=== PATIENT | female | born 1950 | race Caucasian/White ===

== ENCOUNTER 2018-04-11 08:08 | Inpatient (IN) | payer BC ==
[~2018-04-11] VITALS: Ht 167.6 cm; Wt 131.5 kg
--- NOTE | 2018-04-11 08:15 | NUR ---
DR. BLACKMAN MADE AWARE OF PTS STATUS. BREATHING TREATMENT ORDERED.
[2018-04-11 08:25] VITALS: BP 142/66
[2018-04-11] MEDS ORDERED: ALBUTEROL SULFATE/IPRATROPIU 3 ML SOL IH ONE (08:25)
[2018-04-11] MEDS ORDERED: ALBUTEROL 0.083% 2.5 MG/3 ML NEBU INH ONE (08:25)
--- NOTE | 2018-04-11 08:25 | NUR ---
67 Y/O F PRESENTS TO THE ED W/C/O SOB X 6 MONTHS. PT STATES SHE WENT TO HER PCP A COUPLE OF DAYS AGO AND THEY TOLD HER SHE HAD LOW H&H AND TO COME TO ER. PT BREATHING LABORED, AUDIBLE WHEEZES HEARD BILATERALLY ON INSPIRATION. PT 97% ON RA. PT SPEAKING IN FULL SENTENCES. GCS 15. PT DENIES N/V/D; SKIN IS INTACT, PINK/WARM/DRY; AAOX4, PERRL, WITH EVEN AND STEADY GAIT; HR EVEN AND REGULAR, BL PERIPHERAL PULSES PRESENT; BS ACTIVE X4, NO TENDERNESS TO PALPATION, NO HEPATOSPLENOMEGALLY PALPATED, RESONANT TO PERCUSSION; PT DENIES ANY FEVER, CP, OR COUGH AT THIS TIME; PT STATES 0/10 PAIN AT THIS TIME; VSS; PATIENT POSITIONED FOR COMFORT; HOB ELEVATED; BEDRAILS UP X2; BED DOWN. PMH: HTN, ASTHMA, THYROID CA, ANXIETY RX: LEVOTHYROXINE, WELLBUTRIN ARE THE ONLY MEDS THE PT REMEMBERS AT THIS TIME.
--- NOTE | 2018-04-11 08:30 | NUR ---
CALLED RT TO INFORM OF BREATHING TREATMENT ORDER.
[2018-04-11 08:52] LABS: ANION GAP 19.9 (8-16); CARBON DIOXIDE 21.6 mmol/L (21-32); CREATININE 1.9 mg/dL (0.6-1.3); POTASSIUM 4.5 mmol/L (3.5-5.1)
[2018-04-11 08:57] LABS: BASOPHILS # (AUTO) 0.1 K/uL (0.00-0.22); BASOPHILS % (AUTO) 1.1 % (0.0-2.0); EOSINOPHILS # (AUTO) 0.3 K/uL (0-0.4); EOSINOPHILS % (AUTO) 3.2 % (0.0-4.0); LYMPHOCYTES # (AUTO) 0.8 K/uL (2.5-16.5); LYMPHOCYTES % (AUTO) 9.5 % (20.5-51.1); MEAN CORPUSCULAR HEMOGLOBIN 16 pg (27-31); MEAN CORPUSCULAR HGB CONC 28 g/dL (33-37); MEAN CORPUSCULAR VOLUME 57.4 fL (80-94); MONOCYTES # (AUTO) 0.9 K/uL (0.8-1.0); MONOCYTES % (AUTO) 11.3 % (1.7-9.3); NEUTROPHILS # (AUTO) 5.9 K/uL (1.8-7.7); NEUTROPHILS % (AUTO) 74.9 % (42.2-75.2); PLATELET COUNT (AUTO) 371 K/uL (140-450); RED BLOOD CELL COUNT(AUTO) 3.31 MIL/uL (4.20-5.40); RED CELL DISTRIBUTION WIDTH 21.6 % (11.6-13.7); WHITE BLOOD COUNT (AUTO) 7.9 K/uL (4.8-10.8)
[2018-04-11 09:01] LABS: HEMOGLOBIN 5.3 g/dL (12.0-16.0)
--- NOTE | 2018-04-11 09:41 | NUR ---
DR. BLACKMAN MADE AWARE OF B/P 109/37. NO NEW ORDERS GIVEN
--- NOTE | 2018-04-11 09:41 | NUR ---
Diane khalil in ED - 04/11/[address] BLACKMAN MADE AWARE OF B/P 109/37.
--- NOTE | 2018-04-11 10:16 | NUR ---
DR. BLACKMAN AT BEDSIDE.
[2018-04-11] MEDS ORDERED: LORazepam 2 MG/ML VIAL IVP ONE (10:20)
--- NOTE | 2018-04-11 11:00 | NUR ---
UNIT OF PACKED RBCS STARTED AT THIS TIME. VSS.
[2018-04-11] MEDS ORDERED: ONDANSETRON 4 MG/2 ML VIAL IVP PRN (11:05)
[2018-04-11] MEDS ORDERED: HYDROcodone/APAP 5/325 MG 1 TAB TAB PO PRN (11:05)
[2018-04-11] MEDS ORDERED: LORazepam 2 MG/ML VIAL IVP PRN (11:05)
[2018-04-11] MEDS ORDERED: ALBUTEROL 0.083% 2.5 MG/3 ML NEBU INH PRN (11:05)
[2018-04-11] MEDS ORDERED: ACETAMINOPHEN 325 MG TAB PO PRN (11:05)
--- NOTE | 2018-04-11 11:15 | NUR ---
VSS. NO S/S OF DISTRESS NOTED. VITALS CHARTED ON BLOOD TRANSFUSION PAPER.
--- NOTE | 2018-04-11 11:30 | NUR ---
VSS. NO S/S OF DISTRESS NOTED. VITALS CHARTED ON BLOOD TRANSFUSION PAPER.
--- NOTE | 2018-04-11 11:43 | NUR ---
Patient will be admitted to care of DR. ANDRADE. Admited to TELE. Will go to room 105B. Belongings list completed. Report to EVER HODGE.
[2018-04-11 11:45] VITALS: BP 130/67
--- NOTE | 2018-04-11 12:00 | NUR ---
Admitted from ED , with chief complaint of SOB AND LOW HEMOGLOBIN AND HEMATOCRIT COUNT TAKEN FROM PT'S PCP 2 DAYS AGO. PT STATED SHE RECEIVED A CALL YESTERDAY AFTER REGARDING THE RESULTS AND THAT HER PCP WHICH SHE FORGOT THE NAME BUT HE IS UNDER DR. LONG'S GROUP TOLD HER TO GO TO THE HOSPITAL FOR BLOOD TRANSFUSION. PT IS AAOX4. NO SOB NOTED, ON ROOM AIR WITH SATS OF 97%. NO C/O PAIN AT THIS TIME. IV TO LT AC PATENT AND INTACT WITH ON GOING 1ST UNIT OF PRBC ORDERED FROM ED. PT IS A 67 y/o ,Female, Cooperative,oriented to call light, bed, phone,television, bathroom, smoking policy,visiting hours, procedures, ID bracelet on. Belongings list checked. INSTRUCTED PT TO CALL FOR ASSISTANCE, CALL LIGHT WITHIN REACH, PT VERBALIZED UNDERSTANDING.
--- NOTE | 2018-04-11 13:55 | NUR ---
1ST UNIT PRBC COMPLETED WITH NO BLOOD TRANSFUSION REACTIONS NOTED. DR. ANDRADE IS IN THE STATION HAVING ROUNDS AND CLARIFIED THE TRANSFUSION ORDER, DR. ANDRADE STATED THAT HE ALREADY ORDERED 2 UNITS. 2ND UNIT OF PRBC STARTED. WILL CONTINUE TO MONITOR FOR BLOOD TRANSFUSION REACTIONS.
--- NOTE | 2018-04-11 14:14 | NUR ---
CALLED TO BEDSIDE BY RN. PATIENT BECAME SOB AFTER WALKING TO BATHROOM. FAINT WHEEZING NOTED. PRN TREATMENT ADMINISTERED. PATIENT TOLERATED TX WELL, NO ADVERSE SIDE EFFECTS. PATIENT STATES TO BE FEELING BETTER. NO ACUTE RESPIRATORY DISTRESS NOTED. WILL CONTINUE TO MONITOR.
--- NOTE | 2018-04-11 14:14 | NUR ---
PT WENT TO THE BATHROOM AND CAME BACK WHEEZING AND STATED SHE NEEDS A BREATHING TREATMENT. RT PAGED.
--- NOTE | 2018-04-11 14:35 | NUR ---
PT SITTING AT THE SIDE OF THE BED. NO SOB NOTED. PT STATED SHE FELT BETTER AFTER THE BREATHING TREATMENTS.
[2018-04-11 16:00] VITALS: BP 137/68
--- NOTE | 2018-04-11 16:05 | NUR ---
PT AWAKE, WATCHING TV. NO SOB NOTED. NO COMPLAINTS MADE. WILL CONTINUE TO MONITOR.
--- NOTE | 2018-04-11 17:15 | NUR ---
PT STATED SHE RECEIVED A CALL FROM HER PCP OFFICE THAT HER VITAMIN D LEVEL CAME BACK AND IS LOW (8.4). WILL NOTIFY PT'S ATTENDING PHYSICIAN.
--- NOTE | 2018-04-11 17:15 | NUR ---
2ND UNIT OF PRBC COMPLETED, NO BLOOD TRANSFUSION REACTIONS NOTED THE ENTIRE TRANSFUSION PERIOD.
[2018-04-11] MEDS: NACL 0.9% 1,000 ML IV SCH ×2 (18:19→20:46)
--- NOTE | 2018-04-11 19:00 | NUR ---
RECEIVED REPORT FROM EVER RN DAYSHIFT NURSE AT BEDSIDE FOR CONTINUITY OF CARE, PT IN STABLE CONDITION.
--- NOTE | 2018-04-11 19:00 | NUR ---
PT AWAKE, TALKING TO THE FAMILY AT THE BEDSIDE. NO SOB NOTED. NO COMPLAINTS MADE. ENDORSED TO NEXT SHIFT NURSE FOR CONTINUITY OF CARE.
[2018-04-11 19:24] LABS: HEMATOCRIT 23.1 % (36-48)
[2018-04-11 19:44] LABS: HEMOGLOBIN 6.9 g/dL (12.0-16.0)
[2018-04-11 20:00] VITALS: BP 133/68
--- NOTE | 2018-04-11 20:05 | NUR ---
PT SITTING UP IN BED NO S/S OF PAIN OR DISTRESS, NO SOB NOTED.V/S FOLLOWS T 98.3 P 100 R 18 B/P 133/68 02 94% ON ROOM AIR. PT AWARE OF NEED FOR STOOL SAMPLE HAT LEFT IN BATHROOM.PT REQUEST SLEEPING PILL. LAB CALLED AT 1950 TO REPORT CRITICAL H AND H OF 9.6HGB AND 23.[address] JONATHON CARLOS, DR. HALL BUNGHOLE BORER. DR. HALL CALLED BACK TO ORDER 2 UNITS OF PACKED RED BLOOD CELLS AND HER REQUEST OF AMBIEN 5MG X1. CBC ALREADY ORDERED FOR AM.
[2018-04-11] MEDS ORDERED: ZOLPIDEM 5 MG TAB PO ONE (20:10)
[2018-04-11] MEDS: SODIUM FERRIC GLUCONATE 125 MG in NACL 0.9% 100 ML IV SCH (20:29)
--- NOTE | 2018-04-11 20:52 | NUR ---
FERRLECIT 125MG IV HUNG AND RUNNING AT 110 ORDERED. PT GIVEN AMBIEN REQUESTED/ORDERED.
--- NOTE | 2018-04-11 22:05 | NUR ---
FERRLECIT IV COMPLETED. PT C/O SINUS HEADACHE 07/21, GIVEN NORCO 5/325MG FOR MODERATE PAIN . WILL MONITOR FOR EFFECT.
--- NOTE | 2018-04-11 23:00 | NUR ---
BLOOD ACQUIRED FROM LAB FOR TRANSFUSION AND VERIFIED BY 2 NURSES. PRE-TRANSFUSION VITAL SIGNS FOLLOWS T 98.6 P 95 R 18 B/P 102/47 02 97% ON ROOM AIR. . PT STATES THAT HER HEADACHE HAS GONE AWAY AND THAT SHE FELS FINE. WILL MONITOR PT FOR ANY ADVERSE REACTION TO BLOOD TRANSFUSION.
--- NOTE | 2018-04-11 23:15 | NUR ---
PT IN BED SITTING UP 45% IN BED . FIRST VITALS SIGNS AT TIME OF TRANSFUSION ARE FOLLOWS T 98.6 P 98 R 18 B/P 122/66 02 93% ON ROOM AIR. NO S/S OF ANY REACTION NOTED. PT DENIES ITCHINESS OR RASH.
--- NOTE | 2018-04-11 23:30 | NUR ---
TRANSFUSION IN PROGRESS NO S/S OF ANY ADVERSE REACTION NOTED. V/S FOLLOWS T 98.2 P 100 R 18 B/P 119/63 02 97% ON ROOM AIR. WILL CONTINUE TO MONITOR PT DURING TRANSFUSION.
--- NOTE | 2018-04-11 23:45 | NUR ---
PT IN BED NO C/O VOICED V/S FOLLOWS T 98.4 P 93 R 18 B/P 127/73 02 93% ON ROOM AIR.
[2018-04-12] VITALS: BP 122/59
--- NOTE | 2018-04-12 00:15 | NUR ---
PT AMBULATED TO TOILET AND BACK INDEPENDENTLY, PT A LITTLE OUT OF BREATH WHEN SHE RETURNED TO BED. PT OPTED FOR SUPPLEMENTAL 02 AT 2 LITERS. V/S FOLLOWS T 98.3 P 96 R 20 B/P 122/59 02 96% ON ROOM AIR. PT IN BED CALL TABARES IN REACH WITH NO C/O VOICED.
--- NOTE | 2018-04-12 01:15 | NUR ---
PT IN BED N/C RUNNING AT 2LITERS, V/S FOLLOWS T 98.5 P 90 R 18 B/P 139/69 02 95 WITH 2 LITERS N/C.
--- NOTE | 2018-04-12 02:15 | NUR ---
TRANSFUSION FINISHED LAST V/S T 98.1 P 89 R 18 B/P 126/65 02 95% ON ROOM AIR. NO C/O VOICED NO REACTION NOTED.
--- NOTE | 2018-04-12 02:45 | NUR ---
2ND UNIT OF RPBC STARTED. PRE TRANSFUSION V/S ARE FOLLOWS T 98.1 P 87 R 18 B/P 124/69 02 95% ON ROOM AIR.
--- NOTE | 2018-04-12 02:55 | NUR ---
FIRST SET OF V/S DURING BEGINNING OF TRANSFUSION T 98.1 P 87 R 18 B/P 130/73 02 95% ON ROOM AIR. NO S/S OF DISCOMFORT, OR ANY REACTION TO TRANSFUSION.
--- NOTE | 2018-04-12 03:10 | NUR ---
PT IN LOW BED SIDE RAILS UP X2 NO S/S OF PAIN , DISTRESS OR ADVERSE REACTION NOTED. FLUID RATE OF BLOOD INFUSION IS 70. IT WAS BUMPED UP TO 100LS/HR. WILL CONTINUE TO MONITOR PT CLOSELY.
--- NOTE | 2018-04-12 03:39 | NUR ---
PT IN BED NO S/S OF PAIN OR DISTRESS NOTED. V/S FOLLOWS T 98.3 P 86 R 18 B/P 127/72 02 92.% NO ADVERSE REACTION NOTED.
[2018-04-12 04:00] VITALS: BP 129/70
--- NOTE | 2018-04-12 04:40 | NUR ---
PT IN BED BLOOD TRANSFUSION CONTINUES V/S FOLLOWS T 98 P 91 R 18 B/P 129/91 02 91 ON ROOM AIR.
--- NOTE | 2018-04-12 05:35 | NUR ---
PT IN BED NO S/S OF PAIN OR DISTRESS NOTED. V/S FOLLOWS T 97.9 P 80 R 18 B/P 133/63 02 91% ON R/A. NO ADVERSE REACTION TO TRANSFUSION. NOTED. IV SITE WAS BEEPING AND NEEDED TO BE PRIMED AND FLUSHED.
--- NOTE | 2018-04-12 06:35 | NUR ---
PT IN BED TRANSFUSION STILL GOING V/S FOLLOWS T 98.2 P 70 R 18 B/P 116/60 02 90% ON R/A. NO ADVERSE REACTIONS NOTED. PT SITTING UP I BED AOX4 NO C/O VOICED.
[2018-04-12] MEDS: NACL 0.9% 1,000 ML IV SCH ×3 (07:04→15:23)
--- NOTE | 2018-04-12 07:17 | NUR ---
TRANSFUSION ENDED AT 0715 NO ADVERSE EFFECTS OF TRANSFUSION NOTED. LAST V/S T 98.0 P 87 R 18 B/P 131/66. ENDORSED CARE TO LOW HODGE DAYSHIFT NURSE AT BEDSIDE FOR CONTINUITY OF CARE, PT IN STABLE CONDITION.
--- NOTE | 2018-04-12 07:19 | NUR ---
RECEIVED BEDSIDE REPORT FROM CHUCKING AND BORING MACHINE OPERATOR RN FOR CONTINUITY OF CARE. PT IN STABLE CONDITION. DENIES PAIN AND DISCOMFORT. PATIENT STATES SHE FEELS "MUCH BETTER" WITH "MORE ENERGY". NO S/S DISTRESS. RESPIRATIONS EVEN AND UNLABORED ON RA. HEART RHYTHM REGULAR. ACTIVE BS IN ALL QUADRANTS. ABDOMEN SOFT AND NON-DISTENDED. PT AWARE OF NEED FOR FOBT. SKIN INTACT, WARM, AND DRY. PT IS AMBULATORY WITHOUT ASSIST. IV SITE PATENT AND ASYMPTOMATIC, BLOOD TRANSFUSION HAS JUST FINISHED. ALL SAFETY PRECAUTIONS IN PLACE, WILL CONTINUE TO MONITOR.
[2018-04-12 08:00] VITALS: BP 131/63
[2018-04-12] MEDS ORDERED: ASPIRIN 81 MG TAB.CHEW PO SCH (09:00)
[2018-04-12] MEDS: SODIUM FERRIC GLUCONATE 125 MG in NACL 0.9% 100 ML IV SCH (09:28)
[2018-04-12 09:37] LABS: BASOPHILS # (AUTO) 0.1 K/uL (0.00-0.22); BASOPHILS % (AUTO) 0.9 % (0.0-2.0); EOSINOPHILS # (AUTO) 0.4 K/uL (0-0.4); EOSINOPHILS % (AUTO) 4.6 % (0.0-4.0); HEMOGLOBIN 8.2 g/dL (12.0-16.0); LYMPHOCYTES # (AUTO) 0.5 K/uL (2.5-16.5); LYMPHOCYTES % (AUTO) 6.5 % (20.5-51.1); MEAN CORPUSCULAR HEMOGLOBIN 20 pg (27-31); MEAN CORPUSCULAR HGB CONC 30 g/dL (33-37); MEAN CORPUSCULAR VOLUME 65.7 fL (80-94); MONOCYTES # (AUTO) 0.7 K/uL (0.8-1.0); MONOCYTES % (AUTO) 9.1 % (1.7-9.3); NEUTROPHILS # (AUTO) 6.4 K/uL (1.8-7.7); NEUTROPHILS % (AUTO) 78.9 % (42.2-75.2); PLATELET COUNT (AUTO) 344 K/uL (140-450); RED BLOOD CELL COUNT(AUTO) 4.11 MIL/uL (4.20-5.40); RED CELL DISTRIBUTION WIDTH 30.1 % (11.6-13.7); WHITE BLOOD COUNT (AUTO) 8.1 K/uL (4.8-10.8)
[2018-04-12 09:45] LABS: ANION GAP 12.5 (8-16); CARBON DIOXIDE 26.7 mmol/L (21-32); CREATININE 1.4 mg/dL (0.6-1.3); POTASSIUM 4.2 mmol/L (3.5-5.1)
--- NOTE | 2018-04-12 10:13 | NUR ---
RECEIVED PATIENT ON ROOM AIR, PULSE OX SAT 97%. PATIENT DENIES SOB. PATIENT STATES TO BE "FEELING SO MUCH BETTER". NO RESPIRATORY DISTRESS NOTED AT THIS TIME. NO HHN INDICATED AT THIS TIME. WILL CONTINUE TO MONITOR.
--- NOTE | 2018-04-12 11:41 | NUR ---
PT RESTING IN BED, WATCHING TV. NO C/O PAIN OR DISCOMFORT. DENIES DIZZINESS, LIGHTHEADEDNESS, FATIGUE.
[2018-04-12 12:00] VITALS: BP 119/57
[2018-04-12] MEDS ORDERED: ASPI81CT95 PO (15:39)
[2018-04-12] MEDS ORDERED: FERR325E14 PO (15:39)
[2018-04-12 16:00] VITALS: BP 126/62
--- NOTE | 2018-04-12 16:32 | NUR ---
DISCHARGE PAPERWORK, INCLUDING INSTRUCTIONS TO F/U WITH PCP WITHIN ONE WEEK, GIVEN TO PATIENT. NEW PRESCRIPTION/MEDICATION TEACHING AND MEDICATION RECONCILIATION TEACHING GIVEN TO PATIENT. IV SITE REMOVED WITH MINIMAL BLOOD LOSS AND LUMEN COMPLETELY INTACT. ID BANDS REMOVED. ALL PERSONAL BELONGINGS ARE WITH PATIENT. PATIENT DISCHARGED VIA WHEELCHAIR AND WILL GO HOME WITH FAMILY MEMBER VIA PRIVATE VEHICLE. PT IN STABLE CONDITION.
== END 2018-04-12 17:45 | disposition home or self-care (01) | DRG 811 ==
LOC: MED 08:08 → MTU 11:11
PROVIDERS: ADMIT Hospitalist; ATTEND Hospitalist
PROC: 30233N1 Transfusion of Nonautologous Red Blood Cells into Peripheral Vein, Percutaneous Approach (ICD-10-PCS; principal; 2018-04-11)
DX: D64.9 Anemia, unspecified (principal); N17.0 Acute kidney failure with tubular necrosis; Z68.42 Body mass index [BMI] 45.0-49.9, adult; E61.1 Iron deficiency; J45.909 Unspecified asthma, uncomplicated; I10 Essential (primary) hypertension; E89.0 Postprocedural hypothyroidism; E66.9 Obesity, unspecified; Z90.49 Acquired absence of other specified parts of digestive tract; Z98.84 Bariatric surgery status; Z90.3 Acquired absence of stomach [part of]
CPT/HCPCS: 36415; 71045; 80048; 82306; 83540; 83880; 84484; 85018; 85025; 85045; 85610; 85730; 86886; 86900; 86901; 86920; 87081; 93005; 94640; 99285; J2060; J2916; J7030; J7613; J7620; P9016; Q0092

== ENCOUNTER 2018-10-08 15:36 | Inpatient (IN) | payer BC, OTHER ==
[~2018-10-08] VITALS: Ht 167.6 cm; Wt 139.3 kg
[~2018-10-08 15:36] MED LIST: ASPI81CT95 PO; FERR325E14 PO
[2018-10-08 15:52] VITALS: BP 115/53
--- NOTE | 2018-10-08 16:21 | NUR ---
68F REF[address] BY DR SCOTT OFFICE W/ Hbg of 5.4 (RESULTED TODAY) w/ dizziness, light headed, WEAKNESS. PT STATES SHE HAS CECAL MASS, THAT IS BLEEDING PER HER DOCTOR. PT DENIES ABD PAIN. STATES DARK/BLACK STOOLS. AOX4. NAD AT THIS TIME. HX: CECAL MASS
--- NOTE | 2018-10-08 16:39 | NUR ---
DR. KRAFT EVALUATING PT AT BEDSIDE
--- NOTE | 2018-10-08 16:44 | NUR ---
ACCOMPANIED DR. KRAFT AT BEDSIDE FOR RECTAL EXAM/FOBT.
[2018-10-08] MEDS ORDERED: NACL 0.9% 500 ML IV SCH (16:46)
--- NOTE | 2018-10-08 16:50 | NUR ---
NOTIFIED OF BP 86/43. Addendum: 10/08/18 [address] KRAFT STATES NS BOLUS ALREADY ORDERED
--- NOTE | 2018-10-08 17:06 | NUR ---
EXERCISE SCIENCE INTERNSHIP AT BEDSIDE
[2018-10-08 17:21] LABS: BASOPHILS % (AUTO) 0.7 % (0.0-2.0); EOSINOPHILS # (AUTO) 0.2 K/uL (0-0.4); EOSINOPHILS % (AUTO) 2.3 % (0.0-4.0); HEMATOCRIT 23.6 % (36-48); HEMOGLOBIN 7.6 g/dL (12.0-16.0); LYMPHOCYTES # (AUTO) 0.4 K/uL (2.5-16.5); LYMPHOCYTES % (AUTO) 5.3 % (20.5-51.1); MEAN CORPUSCULAR HEMOGLOBIN 28 pg (27-31); MEAN CORPUSCULAR HGB CONC 32 g/dL (33-37); MEAN CORPUSCULAR VOLUME 88.4 fL (80-94); MONOCYTES # (AUTO) 0.4 K/uL (0.8-1.0); MONOCYTES % (AUTO) 6.5 % (1.7-9.3); NEUTROPHILS # (AUTO) 5.7 K/uL (1.8-7.7); NEUTROPHILS % (AUTO) 85.2 % (42.2-75.2); PLATELET COUNT (AUTO) 310 K/uL (140-450); RED BLOOD CELL COUNT(AUTO) 2.68 MIL/uL (4.20-5.40); RED CELL DISTRIBUTION WIDTH 17.5 % (11.6-13.7); WHITE BLOOD COUNT (AUTO) 6.7 K/uL (4.8-10.8)
[2018-10-08 17:32] LABS: ANION GAP 13.8 (8-16); CARBON DIOXIDE 23.8 mmol/L (21-32); CREATININE 1.9 mg/dL (0.6-1.3); POTASSIUM 4.6 mmol/L (3.5-5.1)
[2018-10-08 17:35] LABS: PROTHROMBIN TIME 9.1 secs (10.8-13.4)
[2018-10-08 17:38] LABS: ALBUMIN 3.2 g/dL (3.4-5.0); TOTAL BILIRUBIN 0.2 mg/dL (0.0-1.0)
[2018-10-08] MEDS ORDERED: PHE6.25L PO (18:34)
[2018-10-08] MEDS ORDERED: BUPR-10 PO (18:34)
[2018-10-08] MEDS ORDERED: METF1000 PO (18:34)
[2018-10-08] MEDS ORDERED: HYDR-7 PO (18:34)
[2018-10-08] MEDS ORDERED: SERT100T PO (18:34)
[2018-10-08] MEDS ORDERED: ERGO500028 PO (18:34)
[2018-10-08] MEDS ORDERED: ALPR0.5T2 PO (18:34)
[2018-10-08] MEDS ORDERED: KEN.025C TP (18:34)
[2018-10-08] MEDS ORDERED: LEVO0.173 PO (18:34)
[2018-10-08] MEDS ORDERED: ALPRAZolam 0.5 MG TAB PO PRN (19:15)
[2018-10-08] MEDS ORDERED: guaiFENesin DM 200/20 MG-10 ML 10 ML UDC PO PRN (19:20)
[2018-10-08] MEDS ORDERED: MORPHINE SULFATE 2 MG/ML SYR IVP PRN (19:20)
[2018-10-08] MEDS ORDERED: MAGNESIUM OXIDE 400 MG TAB PO PRN (19:20)
[2018-10-08] MEDS ORDERED: INSULIN LISPRO SLIDING SCALE 100 UNITS/ML VIAL SUBQ PRN (19:20)
[2018-10-08] MEDS ORDERED: LORazepam 2 MG/ML VIAL IVP PRN (19:20)
[2018-10-08] MEDS ORDERED: MAG SULF 2000 MG/WATER PREMIX 50 ML IV PRN (19:20)
[2018-10-08] MEDS ORDERED: ALBUTEROL 0.083% 2.5 MG/3 ML NEBU INH PRN (19:20)
[2018-10-08] MEDS ORDERED: BISACODYL 10 MG SUPP RC PRN (19:20)
[2018-10-08] MEDS ORDERED: cloNIDine 0.1 MG TAB PO PRN (19:20)
[2018-10-08] MEDS ORDERED: ACETAMINOPHEN 650 MG SUPP RC PRN (19:20)
[2018-10-08] MEDS ORDERED: ACETAMINOPHEN 325 MG TAB PO PRN (19:20)
[2018-10-08] MEDS ORDERED: DOCUSATE SODIUM 250 MG GELCAP PO PRN (19:20)
[2018-10-08] MEDS ORDERED: DEXTROSE 50% 50 ML SYR IVP PRN (19:20)
[2018-10-08] MEDS ORDERED: HYDROcodone/APAP 5/325 MG 1 TAB TAB PO PRN ×2 (19:20)
[2018-10-08] MEDS ORDERED: POTASSIUM CHLORIDE 10 MEQ TABER PO PRN (19:20)
[2018-10-08] MEDS ORDERED: ALUMINUM HYD/MAG/SIMETHICONE 30 ML UDC PO PRN (19:20)
[2018-10-08] MEDS ORDERED: diphenhydrAMINE 50 MG/ML VIAL IVP PRN (19:20)
[2018-10-08] MEDS ORDERED: POTASSIUM CHLORIDE 40 MEQ, LIDOCAINE 1% 25 MG in NACL 0.9% 250 ML IV PRN (19:20)
[2018-10-08] MEDS ORDERED: SODIUM PHOSPHATE 118 ML ENEM RC PRN (19:20)
[2018-10-08] MEDS ORDERED: ONDANSETRON 4 MG/2 ML VIAL IVP PRN (19:20)
[2018-10-08] MEDS ORDERED: ZOLPIDEM 5 MG TAB PO PRN (19:20)
[2018-10-08] MEDS ORDERED: IPRATROPIUM 0.02% 0.5 MG/2.5 ML NEBU INH PRN (19:20)
[2018-10-08 19:30] VITALS: BP 106/56
--- NOTE | 2018-10-08 19:30 | NUR ---
REPORT RECEIVED FROM ED NURSE AT BEDSIDE. PT IN STABLE CONDITION. AAOX4. INTRODUCED SELF TO PT. BOARD UPDATED. NO COMPLAINTS OF PAIN. NO SOB. AFEBRILE. PT IS AMBULATORY. PT HAS SYMPTOMATIC ANEMIA. MRSA COLLECTED. WILL GIVEN BLOOD WHEN IT IS READY. IV SITE L FA 20G PATENT AND INTACT. SKIN WARM, DRY, AND INTACT WITH NO OPEN WOUNDS. BED LOCKED IN LOW POSITION. CALL TABARES WITHIN REACH. SAFETY PRECAUTION IN PLACE. ALL NEEDS MET AT THIS TIME.
--- NOTE | 2018-10-08 19:35 | NUR ---
Patient will be admitted to care of DR. SÁNCHEZ. Admited to TELE RM 112A. Will go to room 112A. Belongings list completed. Report to AYESHA GIANG. PT IN STABLE CONDITION, VSS, AOX4.
[2018-10-08] MEDS ORDERED: metFORMIN 500 MG TAB PO SCH (21:00)
[2018-10-08] MEDS: PANTOPRAZOLE 40 MG INJ VIAL IVP SCH (21:35)
--- NOTE | 2018-10-08 21:35 | NUR ---
PROTONIX GIVEN IVP. BS 87. NO INSULIN COVERAGE NEEDED.
[2018-10-08] MEDS: BLOOD GLUCOSE MONITORING 1 DEV DEV FS SCH (21:36)
[2018-10-08] MEDS: NACL 0.9% 1,000 ML IV SCH (21:46)
--- NOTE | 2018-10-08 23:00 | NUR ---
PT SLEEPING COMFORTABLY IN BED BUT AROUSABLE. NO S/S OF DISTRESS NOTED. WILL CONTINUE TO MONITOR.
[2018-10-09] VITALS: BP 98/58
--- NOTE | 2018-10-09 00:05 | NUR ---
BLOOD RECEIVED FROM BLOOD BANK. 2ND VERIFICATION COMPLETE. BLOOD STARTED. PRE VITALS DONE AT 2345.
--- NOTE | 2018-10-09 00:12 | NUR ---
AMBIEN GIVEN FOR INSOMNIA. PT TOLERATED WELL.
--- NOTE | 2018-10-09 02:00 | NUR ---
PT SLEEPING COMFORTABLY BUT AROUSABLE. BLOOD STILL BEING GIVEN. NO S/S OF TRANSFUSION REACTIONS. PT TOLERATING WELL.
--- NOTE | 2018-10-09 03:45 | NUR ---
BLOOD COMPLETE. NO ADVERSE REACTIONS NOTED.
[2018-10-09 04:00] VITALS: BP 129/64
--- NOTE | 2018-10-09 04:45 | NUR ---
BLOOD RECEIVED FROM BLOOD BANK. 2ND NURSE VERIFICATION DONE. BLOOD STARTED AT THIS TIME.
[2018-10-09] MEDS: BLOOD GLUCOSE MONITORING 1 DEV DEV FS SCH (05:33)
--- NOTE | 2018-10-09 05:33 | NUR ---
SYNTHROID GIVEN PO. BS 90. NO INSULIN COVERAGE NEEDED.
[2018-10-09] MEDS ORDERED: LEVOTHYROXINE 0.1 MG, LEVOTHYROXINE 0.075 MG PO SCH ×2 (06:30)
--- NOTE | 2018-10-09 07:10 | NUR ---
RECEIVED ENDORSEMENT FROM ORDER ADMINISTRATOR NURSE. PATIENT IS AAOX4, ARMENIAN SPEAKING. RESPIRATIONS ARE EVEN AND UNLABORED ON ROOM. PATIENT DENIES ANY PAIN AT THIS TIME. LEFT FA 22G IV INTACT, PATENT, AND INFUSING BLOOD PRODUCTS. PLAN OF CARE WAS REVIEWED WITH PATIENT, PATIENT VERBALIZED UNDERSTANDING. SAFETY MEASURES IN PLACE, CALL LIGHT WITHIN REACH.
[2018-10-09 08:00] VITALS: BP 112/56
--- NOTE | 2018-10-09 08:00 | NUR ---
BLOOD TRANSFUSION COMPLETED. PATIENT TOLERATED WELL. NO ADVERSE REACTIONS NOTED. VS STABLE. NO OTHER NEEDS AT THIS TIME.
--- NOTE | 2018-10-09 08:13 | NUR ---
PATIENT HAS BEEN SCREENED AND CATEGORIZED HIGH NUTRITION RISK. PATIENT WILL BE SEEN WITHIN 1-2 DAYS OF ADMISSION. 10/09/18-10/10/[address]
[2018-10-09] MEDS: NACL 0.9% 1,000 ML IV SCH (08:45)
[2018-10-09] MEDS: PANTOPRAZOLE 40 MG INJ VIAL IVP SCH (08:46)
--- NOTE | 2018-10-09 08:47 | NUR ---
ADMINISTERED SCHEDULED MEDICATIONS. PATIENT TOLERATED WELL. HELD BP MEDICATIONS FOR BP OF 112/56 HR 81. NO OTHER NEEDS AT THIS TIME, WILL CONTINUE TO MONITOR.
[2018-10-09] MEDS ORDERED: NON-FORMULARY ITEM (Lisinopril/Hydrochlorothiazide (Lisinopril-Hctz 20-12.5 mg Tab) 1 TAB) PO SCH (09:00)
[2018-10-09] MEDS ORDERED: LISINOPRIL 20 MG TAB PO SCH (09:00)
[2018-10-09] MEDS ORDERED: BUPROPION HCL 75 MG PO SCH (09:00)
[2018-10-09] MEDS ORDERED: NON-FORMULARY ITEM (Levothyroxine Sodium* (Synthroid*) 0.175 MG) PO SCH (09:00)
[2018-10-09] MEDS ORDERED: HYDROCHLOROTHIAZIDE 25 MG TAB PO SCH (09:00)
[2018-10-09] MEDS ORDERED: SERTRALINE 50 MG TAB PO SCH (09:00)
--- NOTE | 2018-10-09 10:15 | NUR ---
PATIENT REQUESTED TO EAT SOLID FOOD. PER DR. HALL, OK TO GIVE SOLID FOOD. PATIENT DENIES ANY PAIN. NO OTHER NEEDS AT THIS TIME, WILL CONTINUE TO MONITOR.
[2018-10-09 10:26] LABS: BASOPHILS # (AUTO) 0.1 K/uL (0.00-0.22); EOSINOPHILS # (AUTO) 0.2 K/uL (0-0.4); EOSINOPHILS % (AUTO) 4.5 % (0.0-4.0); HEMATOCRIT 27.6 % (36-48); HEMOGLOBIN 8.9 g/dL (12.0-16.0); LYMPHOCYTES # (AUTO) 0.4 K/uL (2.5-16.5); LYMPHOCYTES % (AUTO) 7.9 % (20.5-51.1); MEAN CORPUSCULAR HEMOGLOBIN 29 pg (27-31); MEAN CORPUSCULAR HGB CONC 32 g/dL (33-37); MEAN CORPUSCULAR VOLUME 88.6 fL (80-94); MONOCYTES # (AUTO) 0.5 K/uL (0.8-1.0); MONOCYTES % (AUTO) 8.9 % (1.7-9.3); NEUTROPHILS # (AUTO) 4.2 K/uL (1.8-7.7); NEUTROPHILS % (AUTO) 77.7 % (42.2-75.2); PLATELET COUNT (AUTO) 279 K/uL (140-450); RED BLOOD CELL COUNT(AUTO) 3.11 MIL/uL (4.20-5.40); WHITE BLOOD COUNT (AUTO) 5.4 K/uL (4.8-10.8)
[2018-10-09 10:34] LABS: ANION GAP 14.7 (8-16); CARBON DIOXIDE 22.9 mmol/L (21-32); CREATININE 1.7 mg/dL (0.6-1.3); POTASSIUM 4.6 mmol/L (3.5-5.1)
--- NOTE | 2018-10-09 11:38 | NUR ---
DISCHARGE INSTRUCTIONS WERE GIVEN, PATIENT VERBALIZED UNDERSTANDING. ALL QUESTIONS AND CONCERNS WERE ANSWERED. REMOVED IV,CANNULA INTACT WITH MINIMAL BLEEDING. TELE MONITOR WAS REMOVED. PATIENT TO BE DISCHARGED HOME.
--- NOTE | 2018-10-09 11:45 | NUR ---
ID BAND WAS REMOVED. PATIENT WAS TAKEN VIA WHEELCHAIR TO HER CAR. ALL BELONGINGS LEFT WITH PATIENT. PATIENT IS STABLE AT THIS TIME.
== END 2018-10-09 12:00 | disposition home or self-care (01) | DRG 812 ==
LOC: MED 15:36 → MTU 18:37
PROVIDERS: ADMIT Internal Medicine Pulmonary Disease; ATTEND Internal Medicine Pulmonary Disease
PROC: 30233N1 Transfusion of Nonautologous Red Blood Cells into Peripheral Vein, Percutaneous Approach (ICD-10-PCS; principal; 2018-10-08)
DX: D50.9 Iron deficiency anemia, unspecified (principal); K92.2 Gastrointestinal hemorrhage, unspecified; J45.909 Unspecified asthma, uncomplicated; I10 Essential (primary) hypertension; K63.9 Disease of intestine, unspecified; Z85.850 Personal history of malignant neoplasm of thyroid; Z80.0 Family history of malignant neoplasm of digestive organs
CPT/HCPCS: 36415; 80048; 80053; 82948; 85025; 85610; 85730; 86886; 86900; 86901; 86920; 87081; 99285; C9113; J1815; J7030; P9016

== ENCOUNTER 2020-07-15 10:45 | Observation (INO) | payer BC, SELFPAY ==
[~2020-07-15] VITALS: Ht 167.6 cm; Wt 128.4 kg
[~2020-07-15 10:45] MED LIST changes: +ALPR0.5T2 PO; +BUPR-10 PO; +ERGO500028 PO; +KEN.025C TP; +LEVO0.173 PO; +METF1000 PO; +PHE6.25L PO; +SERT100T PO; +[UNRECOGNIZED DRUG - CODE] PO
--- NOTE | 2020-07-15 10:49 | NUR ---
1044--PT BIBA TO BED 01 VIA SANDI.
[2020-07-15 11:00] VITALS: BP 126/84
--- NOTE | 2020-07-15 11:00 | NUR ---
70 YEAR OLD FEMALE BIBA FOR GENERALIZED WEAKNESS X 7 DAYS. PER EMS PT WAS FOUND ON FLOOR AND HOUSE WAS FILTHY ON ARRIVAL AND THEY REPORTED TO APS. PT STATES THAT SHE FELL ON FLOOR ON BUTT, DENIES HITTING HEAD OR LOC. PT STATES THAT SHE IS TAKING CHEMOTHERAPY FOR THE PAST 7 WEEKS. PT AOX4, BREATHING EVEN AND UNLABORED, SKIN WARM AND DRY. BED IN LOWEST POSITION, LOCKED, BED RAIL UPX1. PMH - COLON CANCER ALLERGIES - NKA
[2020-07-15] MEDS ORDERED: NACL 0.9% 1,000 ML IV ONE (11:40)
[2020-07-15 11:53] LABS: BASOPHILS # (AUTO) 0.1 K/uL (0.00-0.22); BASOPHILS % (AUTO) 0.7 % (0.0-2.0); EOSINOPHILS # (AUTO) 0.1 K/uL (0-0.4); EOSINOPHILS % (AUTO) 0.7 % (0.0-4.0); HEMATOCRIT 35.9 % (36-48); LYMPHOCYTES # (AUTO) 0.3 K/uL (2.5-16.5); MEAN CORPUSCULAR HEMOGLOBIN 32 pg (27-31); MEAN CORPUSCULAR HGB CONC 33 g/dL (33-37); MEAN CORPUSCULAR VOLUME 94.7 fL (80-94); MONOCYTES # (AUTO) 0.7 K/uL (0.8-1.0); MONOCYTES % (AUTO) 8.1 % (1.7-9.3); NEUTROPHILS # (AUTO) 7.2 K/uL (1.8-7.7); NEUTROPHILS % (AUTO) 86.5 % (42.2-75.2); PLATELET COUNT (AUTO) 267 K/uL (140-450); RED BLOOD CELL COUNT(AUTO) 3.79 MIL/uL (4.20-5.40); RED CELL DISTRIBUTION WIDTH 19.6 % (11.6-13.7); WHITE BLOOD COUNT (AUTO) 8.4 K/uL (4.8-10.8)
[2020-07-15 12:37] LABS: ANION GAP 17.4 (8-16); CARBON DIOXIDE 22.7 mmol/L (21-32); CHLORIDE 105 mmol/L (98-107); CREATININE 1.6 mg/dL (0.6-1.3); GLUCOSE 95 mg/dL (74-106); POTASSIUM 4.1 mmol/L (3.5-5.1); SODIUM SERUM 141 mmol/L (136-145); UREA NITROGEN, BLOOD 28 mg/dL (7-18)
[2020-07-15 12:43] LABS: ALBUMIN 3.1 g/dL (3.4-5.0); ASPARTATE AMINOTRANSFERASE 32 U/L (15-37); TOTAL BILIRUBIN 0.3 mg/dL (0.0-1.0)
[2020-07-15] MEDS ORDERED: LORazepam 1 MG TAB PO ONE (13:50)
--- NOTE | 2020-07-15 14:21 | NUR ---
[facility] CALLED AT [phone] SPOKEN WITH SILVESTRE MÉNDEZ REGARDING PT. REF#[id number]
--- NOTE | 2020-07-15 14:33 | NUR ---
Diane khalil in [facility] - 07/15/20 at 1435 by CASSIE PER ABIGAIL RIVERS, STATES THAT FINANCIAL SERVICES TECHNICIAN SAYS- "APS DOES NOT CLOSE AND DOES NOT TRANSMISSION MECHANIC CLIENTS FROM THE HOSPITAL, SO UP TO HOSPITAL TO PERFORM SAFE DISCHARGE, CALL FAMILY, OR DISCHARGE HOME." PER ABIGAIL OK TO DISCHARGE HOME.
--- NOTE | 2020-07-15 14:35 | NUR ---
PER APS SILVESTRE, STATES THAT KITCHEN UTILITY ASSOCIATE SAYS- "[facility] DOES NOT CLOSE AND DOES NOT MUSHROOM CUTTER CLIENTS FROM THE HOSPITAL, SO UP TO HOSPITAL TO PERFORM SAFE DISCHARGE, CALL FAMILY, OR DISCHARGE HOME." PER APS OK TO DISCHARGE HOME. NORBERTOD MADE AWARE
--- NOTE | 2020-07-15 15:07 | NUR ---
PER CAM AT [facility] - STATES WE DO NOT SYSTEM CONSULTANT CLIENTS FROM FACILITIES, IT IS RESPONSIBILITY OF DISCHARGE OPTICAL MECHANIC APPRENTICE TO FIND PLACEMENT OF PATIENT IF UNABLE TO GET BACK HOME
--- NOTE | 2020-07-15 16:50 | NUR ---
RECEIVED PATIENT REPORT FROM ER NURSE VIA TELEPHONE. PATIENT WILL ARRIVE IN THE UNIT IN 20 MINS.
--- NOTE | 2020-07-15 16:59 | NUR ---
Patient will be admitted to care of DR CASEY. Admited to MED SURG. Will go to room 110A. Belongings list completed. Report to BLAKE HODGE.
[2020-07-15 17:10] VITALS: BP 111/75
--- NOTE | 2020-07-15 17:10 | NUR ---
PATIENT ADMITTED TO THE UNIT FOR COLON CA. PATIENT IS AO X4, ABLE TO MAKE NEEDS KNOWN. RESPIRATIONS EVEN AND UNLABORED. NO S/S OF RESPIRATORY DISTRESS NOTED. ON RA SATING AT 98%. SKIN IS WARM AND DRY. IV SITE ON RAC 20 G. SALINE LOCKED. INTACT AND PATENT. BOWEL SOUNDS ACTIVE IN ALL FOUR QUADRANTS. AABD IS SOFT, FLAT, AND NON-DISTENED. GAIT IS UNSTEADY AND NEEDS ASSISTANCE TO AMBULATE. NOTED SWELLING AND BRUISE ON LEFT ANKLE. PLAN OF CARE DISCUSSED. SAFETY PRECAUTIONS IN PLACE. BED IN LOW POSITION. CALL LIGHT WITHIN REACH. WILL CONTINUE TO MONITOR.
--- NOTE | 2020-07-15 17:10 | NUR ---
PT TAKEN TO FLOOR AT THIS TIME
[2020-07-15] MEDS ORDERED: ONDANSETRON 4 MG/2 ML VIAL IVP PRN (17:30)
[2020-07-15] MEDS ORDERED: ACETAMINOPHEN 325 MG TAB PO PRN (17:30)
[2020-07-15] MEDS: NACL 0.9% 1,000 ML IV SCH (18:17)
--- NOTE | 2020-07-15 19:20 | NUR ---
ENDORSED TO WATCH REPAIR TECHNICIAN NURSE FOR CONTINUITY OF CARE. PT IS STABLE.
--- NOTE | 2020-07-15 19:21 | NUR ---
RECEIVED PATIENT FROM AM NURSE FOR CONTINUITY OF CARE. A/A/O X4. RESPIRATORY EVEN AND UNLABORED, ON ROOM AIR, NO SIGN OF RESPIRATORY DISTRESS NOTED. SKIN WARM, DRY, NON DIAPHORETIC. IV ON RIGHT AC 20G, INTACT AND PATENT, IS INFUSING FLUID @50ML/HR. JM CATH NOTED ON RIGHT UPPER CHEST FOR CHEMOTHERAPY. BOWEL SOUND ACTIVE TO ALL QUADRANTS. ABDOMEN SOFT, NON DISTENDED, NON TENDERNESS. PATIENT DENIES ANY PAIN OR DISCOMFORT. ABLE TO MAKE NEED KNOWN. PLAN OF CARE DISCUSSED, PATIENT VERBALIZED UNDERSTANDING. PRECAUTION IN PLACE. CALL LIGHT WITHIN REACH. WILL CONTINUE TO MONITOR.
[2020-07-15 20:00] VITALS: BP 146/78
--- NOTE | 2020-07-15 20:09 | NUR ---
PAGED DR VALDOVINOS, WAITING FOR CALL BACK.
--- NOTE | 2020-07-15 20:12 | NUR ---
RECEIVED CALL FROM DR VALDOVINOS, LAUREEN MELATONIN 3MG QHS PRN FOR INSOMNIA, WILL FOLLOW ORDER. NOTIFIED DR THAT PATIENT HAD DIARRHEA WITH STRONG ODOR. LAUREEN CONTACT ISOLATION R/O C DIFF, COLLECT STOOL FOR C DIFF. WILL FOLLOW ORDER.
[2020-07-15] MEDS: MELATONIN 3 MG TAB PO PRN (22:09)
--- NOTE | 2020-07-15 22:09 | NUR ---
PRN MELATONIN GIVEN WITH EDUCATION, PATIENT VERBALIZED UNDERSTANDING. NO SIGN OF DISTRESS NOTED. PRECAUTION IN PLACE. CALL LIGHT WITHIN REACH. WILL CONTINUE TO MONITOR.
--- NOTE | 2020-07-16 | NUR ---
ROUND CHECK. PATIENT IS SLEEPING, CHEST RISE AND FALL NOTED, NO SIGN OF RESPIRATORY DISTRESS NOTED. PRECAUTION IN PLACE. CALL LIGHT WITHIN REACH. WILL CONTINUE TO MONITOR.
--- NOTE | 2020-07-16 02:00 | NUR ---
ROUND CHECK. PATIENT IS SLEEPING, CHEST RISE AND FALL NOTED. NO SIGN OF RESPIRATORY DISTRESS NOTED. PRECAUTION IN PLACE. CALL LIGHT WITHIN REACH. WILL CONTINUE TO MONITOR.
[2020-07-16 04:00] VITALS: BP 118/64
--- NOTE | 2020-07-16 04:00 | NUR ---
ROUND CHECK. PATIENT IS SLEEPING, CHEST RISE AND FALL NOTED. NO SIGN OF DISTRESS NOTED. PRECAUTION IN PLACE. CALL LIGHT WITHIN REACH. WILL CONTINUE TO MONITOR.
[2020-07-16 05:30] LABS: BASOPHILS # (AUTO) 0.1 K/uL (0.00-0.22); BASOPHILS % (AUTO) 0.7 % (0.0-2.0); EOSINOPHILS # (AUTO) 0.2 K/uL (0-0.4); EOSINOPHILS % (AUTO) 2.2 % (0.0-4.0); HEMATOCRIT 32.7 % (36-48); HEMOGLOBIN 10.8 g/dL (12.0-16.0); LYMPHOCYTES # (AUTO) 0.6 K/uL (2.5-16.5); LYMPHOCYTES % (AUTO) 8.4 % (20.5-51.1); MEAN CORPUSCULAR HEMOGLOBIN 31 pg (27-31); MEAN CORPUSCULAR HGB CONC 33 g/dL (33-37); MEAN CORPUSCULAR VOLUME 94.7 fL (80-94); MONOCYTES # (AUTO) 0.8 K/uL (0.8-1.0); MONOCYTES % (AUTO) 10.9 % (1.7-9.3); NEUTROPHILS # (AUTO) 5.9 K/uL (1.8-7.7); NEUTROPHILS % (AUTO) 77.8 % (42.2-75.2); PLATELET COUNT (AUTO) 217 K/uL (140-450); RED BLOOD CELL COUNT(AUTO) 3.45 MIL/uL (4.20-5.40); RED CELL DISTRIBUTION WIDTH 20.2 % (11.6-13.7); WHITE BLOOD COUNT (AUTO) 7.6 K/uL (4.8-10.8)
[2020-07-16 05:47] LABS: ALBUMIN 2.7 g/dL (3.4-5.0); ANION GAP 15.5 (8-16); ASPARTATE AMINOTRANSFERASE 25 U/L (15-37); CARBON DIOXIDE 23.5 mmol/L (21-32); CHLORIDE 107 mmol/L (98-107); CREATININE 1.5 mg/dL (0.6-1.3); GLUCOSE 93 mg/dL (74-106); MAGNESIUM 1.6 mg/dL (1.8-2.4); PHOSPHORUS 3.6 mg/dL (2.5-4.9); SODIUM SERUM 142 mmol/L (136-145); TOTAL BILIRUBIN 0.3 mg/dL (0.0-1.0); UREA NITROGEN, BLOOD 27 mg/dL (7-18)
--- NOTE | 2020-07-16 06:00 | NUR ---
ROUND CHECK. PATIENT IS SLEEPING, CHEST RISE AND FALL NOTED. NO SIGN OF DISTRESS NOTED. PRECAUTION IN PLACE. CALL LIGHT WITHIN REACH. WILL CONTINUE TO MONITOR.
--- NOTE | 2020-07-16 07:01 | NUR ---
PATIENT HAS BEEN SCREENED AND CATEGORIZED MODERATE NUTRITION RISK. PATIENT WILL BE SEEN WITHIN 3-5 DAYS OF ADMISSION. 07/18/20 07/20/[address]
--- NOTE | 2020-07-16 07:15 | NUR ---
ENDORSED PATIENT TO AM NURSE FOR CONTINUITY OF CARE. PATIENT IS STABLE.
--- NOTE | 2020-07-16 07:16 | NUR ---
RECEIVED PATIENT FROM NIGHT NURSE. PATIENT IN BED SLEEPING, CHEST NOTED RISING. NO NOTED DISTRESS AT THIS TIME. RAC 20G INFUSING NS. RU CHEST MEDIPORT FOR CHEMO. PATIENT ON CONTACT ISO R/O CDIFF. HOB ELEVATED. SAFETY MEASURES IN PLACE. CALL LIGHT WITHIN REACH. WILL CONTINUE TO MONITOR.
[2020-07-16] MEDS: ENOXAPARIN 30 MG/0.3 ML SYR SUBQ SCH (09:44)
--- NOTE | 2020-07-16 09:55 | NUR ---
PATIENT IN BED AWAKE, ALERT AND ORIENTED X3. RESP EVEN AND UNLABORED ON ROOM AIR. DENIED OF PAIN AT THIS TIME. PATIENT ABLE TO MAKE NEEDS KNOWN. RAC 20G INFUSING WELL. SKIN WARM TO TOUCH AND INTACT. LOWER LEFT MEDIAL ANKLE NOTED WITH SWELLING. PATIENT STATED SHE HAD A FALL AT HOME AND HAD TWISTED HER LEFT ANKLE. DENIED OF PAIN UPON MOVEMENT. PATIENT ENCOURAGED NOT TO AMBULATE AND CALL FOR ASSIST. PLAN OF CARE DISCUSSED, PATIENT VERBALIZED UNDERSTANDING. CALL LIGHT WITHIN REACH. WILL CONTINUE TO MONITOR.
--- NOTE | 2020-07-16 12:51 | NUR ---
PATIENT IN BED EATING LUNCH. RESP EVEN AND UNLABORED ON ROOM AIR. NO NOTED DISTRESS AT THIS TIME. CALL LIGHT WITHIN REACH. WILL CONTINUE TO MONITOR.
[2020-07-16] MEDS: NACL 0.9% 1,000 ML IV SCH (13:30)
--- NOTE | 2020-07-16 14:25 | NUR ---
PATIENT IN BED SLEEPING, CHEST NOTED RISING. NO NOTED DISTRESS AT THIS TIME. CALL LIGHT WITHIN REACH. WILL CONTINUE TO MONITOR.
[2020-07-16 16:00] VITALS: BP 133/75
--- NOTE | 2020-07-16 16:55 | NUR ---
PATIENT SITTING UP IN BED WATCHING TV. RESP EVEN AND UNLABORED ON ROOM AIR. NO NOTED DISTRESS AT THIS TIME. CALL LIGHT WITHIN REACH. WILL CONTINUE TO MONITOR.
--- NOTE | 2020-07-16 19:07 | NUR ---
ENDORSED PATIENT TO NIGHT NURSE. PATIENT IN STABLE CONDITION.
--- NOTE | 2020-07-16 19:08 | NUR ---
RECEIVED BEDSIDE REPORT FROM DAY RN. PT IS AAOX4. RESPIRATIONS ARE EQUAL AND UNLABORED ON ROOM AIR, NO SIGN OF RESPIRATORY DISTRESS NOTED. SKIN WARM, DRY, INTACT. IV ON RIGHT AC 20G, INTACT AND PATENT, INFUSING NS @50ML/HR. JM CATH NOTED ON RIGHT UPPER CHEST FOR CHEMOTHERAPY. BOWEL SOUND ACTIVE TO ALL QUADRANTS. ABDOMEN SOFT, NON DISTENDED, NON TENDERNESS. PATIENT DENIES ANY PAIN OR DISCOMFORT AT THIS TIME. PT ON CONTACT PRECAUTION TO R/O C-DIFF NO BM TODAY. PLAN OF CARE DISCUSSED, PATIENT VERBALIZED UNDERSTANDING. PRECAUTION IN PLACE. CALL LIGHT WITHIN REACH. WILL CONTINUE TO MONITOR.
[2020-07-16 20:00] VITALS: BP 116/55
[2020-07-16] MEDS ORDERED: MAG SULF 2000 MG/WATER PREMIX 50 ML IV ONE (20:05)
[2020-07-16] MEDS: MELATONIN 3 MG TAB PO PRN (20:25)
--- NOTE | 2020-07-16 20:25 | NUR ---
VSS. MG RIDER NOW INFUSING PER ORDERS TO REPLENISH MG 1.6. ADMIN PRN MELATONIN HS PER PT REQUEST. PT WAS REPOSITION. CALL LIGHT IS WITHIN REACH. WILL CONTINUE TO MONITOR.
--- NOTE | 2020-07-16 22:15 | NUR ---
PT WAS CLEANED AND REPOSITION FOR COMFORT. ALL NEEDS MET. CALL LIGHT IS WITHIN REACH
--- NOTE | 2020-07-16 23:59 | NUR ---
MADE ROUNDS. PT OBSERVED LAYING COMFORTABLY IN BED APPEARS TO BE ASLEEP. CHEST RISE AND FALL NOTED. ALL NEEDS MET.
--- NOTE | 2020-07-17 02:19 | NUR ---
ROUNDS MADE. PT APPEARS TO BE ASLEEP CHEST RISE AND FALL NOTED. CALL LIGHT IS WITHIN REACH.
[2020-07-17 04:00] VITALS: BP 135/62
--- NOTE | 2020-07-17 04:00 | NUR ---
VITAL SIGNS ARE WITHIN NORMAL LIMITS. ALL SAFETY MEASURES ARE IN PLACE. WILL CONTINUE TO MONITOR.
--- NOTE | 2020-07-17 07:15 | NUR ---
RECEIVED PATIENT FROM NIGHT NURSE. PATIENT IN BED AWAKE AND ALERT. RESP EVEN AND UNLABORED ON ROOM AIR. NO NOTED DISTRESS AT THIS TIME. RAC IV INFILTRATED AND REMOVED. WILL MAKE ATTEMPT TO START IV. PLAN OF CARE DISCUSSED, PATIENT VERBALIZED UNDERSTANDING. SAFETY MEASURES IN PLACE. CALL LIGHT WITHIN REACH. WILL CONTINUE TO MONITOR.
--- NOTE | 2020-07-17 07:15 | NUR ---
GAVE BEDSIDE REPORT TO DAY RN. PT ENDORSED IN STABLE CONDITION.
[2020-07-17 08:00] VITALS: BP 124/57
[2020-07-17] MEDS: ENOXAPARIN 30 MG/0.3 ML SYR SUBQ SCH (08:56)
--- NOTE | 2020-07-17 09:08 | NUR ---
PATIENT IN BED AWAKE AND ALERT. MORNING ROUTINE MEDICATIONS GIVEN. PATIENT TOLERATED WELL. RESP EVEN AND UNLABORED ON ROOM AIR. DENIED OF PAIN AT THIS TIME. PATIENT ABLE TO MAKE NEEDS KNOWN. CALL LIGHT WITHIN REACH. WILL CONTINUE TO MONITOR.
[2020-07-17] MEDS: NACL 0.9% 1,000 ML IV SCH ×2 (09:30→23:33)
--- NOTE | 2020-07-17 11:25 | NUR ---
PATIENT IN BED SLEEPING, CHEST NOTED RISING. NO NOTED DISTRESS. CALL LIGHT WITHIN REACH. WILL CONTINUE TO MONITOR.
--- NOTE | 2020-07-17 13:33 | NUR ---
SEVERAL ATTEMPTS MADE UNSUCCESSFUL TO START IV. WILL ASK CHARGE NURSE FOR ASSIST.
--- NOTE | 2020-07-17 14:35 | NUR ---
RH 24G INSERTED BY PHARMACOGNOSY TEACHER USING ASEPTIC TECHNIQUE. PATIENT TOLERATED WELL. NO NOTED DISTRESS. CALL LIGHT WITHIN REACH. WILL CONTINUE TO MONITOR.
[2020-07-17 16:00] VITALS: BP 124/62
[2020-07-17] MEDS ORDERED: INTERDRY CLOTH TP PRN (16:15)
--- NOTE | 2020-07-17 16:21 | NUR ---
DR CASEY MADE AWARE OF LEFT ABDOMINAL FOLDS REDNESS AND MOISTURE. RECEIVED ORDER FOR NYSTATIN POWDER AND INTERDRY. ORDER CARRIED OUT.
--- NOTE | 2020-07-17 18:34 | NUR ---
PATIENT IN BED WATCHING TV. RESP EVEN AND UNLABORED ON ROOM AIR. NO NOTED DISTRESS AT THIS TIME. CALL LIGHT WITHIN REACH. WILL CONTINUE TO MONITOR.
--- NOTE | 2020-07-17 19:08 | NUR ---
ENDORSED PATIENT TO NIGHT NURSE. PATIENT IN STABLE CONDITION.
--- NOTE | 2020-07-17 19:09 | NUR ---
RECEIVED BEDSIDE REPORT FROM DAY RN. PT IS AAOX4. SITTING IN BED EATING DINNER. RESPIRATIONS ARE EQUAL AND UNLABORED ON ROOM AIR, NO SIGN OF RESPIRATORY DISTRESS NOTED. SKIN WARM, DRY, SKIN BREAKDOWN ON ABD FOLD WITH INTERDRY IN PLACE. IV ON RIGHT MUNGUIA 24G INTACT AND PATENT, INFUSING NS @50ML/HR. JM CATH NOTED ON RIGHT UPPER CHEST FOR CHEMOTHERAPY. BOWEL SOUND ACTIVE TO ALL QUADRANTS. ABDOMEN SOFT, NON DISTENDED, NON TENDERNESS. PATIENT DENIES ANY PAIN OR DISCOMFORT AT THIS TIME. PT ON CONTACT PRECAUTION TO R/O C-DIFF NO BM TODAY. PLAN OF CARE DISCUSSED, PATIENT VERBALIZED UNDERSTANDING. PRECAUTION IN PLACE. CALL LIGHT WITHIN REACH. WILL CONTINUE TO MONITOR.
[2020-07-17] MEDS: NYSTATIN POW 100 MU/GM 15 GM BTL TP SCH (19:58)
[2020-07-17 20:00] VITALS: BP 138/77
[2020-07-17] MEDS: MELATONIN 3 MG TAB PO PRN (20:00)
--- NOTE | 2020-07-17 20:00 | NUR ---
VITAL SIGNS ARE WITHIN NORMAL LIMITS. MELATONIN HS GIVEN PER REQUEST. MED EDUCATION GIVEN. ALL NEEDS MET. CALL LIGHT IS WITHIN REACH. WILL CONTINUE TO MONITOR.
--- NOTE | 2020-07-17 22:02 | NUR ---
ROUNDS MADE. PT APPEARS TO BE ASLEEP CHEST RISE AND FALL NOTED. CALL LIGHT IS WITHIN REACH.
[2020-07-17] MEDS ORDERED: MELATONIN 3 MG TAB PO ONE (23:30)
--- NOTE | 2020-07-17 23:35 | NUR ---
LATE ENTRY IV FLUIDS COMPLETED NEW BAG OF FLUID HUNG PER ORDER.
--- NOTE | 2020-07-18 02:07 | NUR ---
ROUNDS MADE. PT APPEARS TO BE ASLEEP. CHEST RISE AND FALL NOTED. CALL LIGHT IS WITHIN REACH.
[2020-07-18 04:00] VITALS: BP 146/73
--- NOTE | 2020-07-18 04:00 | NUR ---
VITAL SIGNS ARE WITHIN NORMAL LIMITS. ALL NEEDS MET. CALL LIGHT IS WITHIN REACH. WILL CONTINUE TO MONITOR.
--- NOTE | 2020-07-18 07:31 | NUR ---
GAVE BEDSIDE REPORT TO DAY RN. PT ENDORSED IN STABLE CONDITION.
--- NOTE | 2020-07-18 07:32 | NUR ---
RECEIVED BEDSIDE REPORT FROM REDRAWER NURSE FOR CONTINUITY OF CARE. PT IS AAOX4. RESPIRATIONS ARE EQUAL AND UNLABORED ON ROOM AIR, NO SIGN OF RESPIRATORY DISTRESS NOTED. SKIN WARM AND DRY, NOTED REDNESS UNDER IN ABDOMINAL FOLDS. INTERDRY CLOTH IN PLACE TO PREVENT MOISTURE AND ITCHINESS. IV ON RIGHT HAND 24G INTACT AND PATENT, INFUSING NS @50ML/HR. JM CATH NOTED ON RIGHT UPPER CHEST FOR CHEMOTHERAPY. PATIENT DENIES ANY PAIN OR DISCOMFORT AT THIS TIME. PLAN OF CARE DISCUSSED, PATIENT VERBALIZED UNDERSTANDING. PRECAUTION IN PLACE. CALL LIGHT WITHIN REACH. WILL CONTINUE TO MONITOR.
[2020-07-18 08:00] VITALS: BP 132/62
[2020-07-18] MEDS: ENOXAPARIN 30 MG/0.3 ML SYR SUBQ SCH (09:06)
[2020-07-18] MEDS: INTERDRY CLOTH TP SCH (09:07)
[2020-07-18] MEDS: NYSTATIN POW 100 MU/GM 15 GM BTL TP SCH ×2 (09:07→21:23)
--- NOTE | 2020-07-18 09:08 | NUR ---
FNS CONSULT RECEIVED WOUNDS/PRESSURE INJURIES. PATIENT HAS BEEN SCREENED AND CATEGORIZED HIGH NUTRITION RISK. PATIENT WILL BE SEEN WITHIN 1-2 DAYS OF RECEIVING CONSULT. 07/18/[address]
--- NOTE | 2020-07-18 09:10 | NUR ---
ALL SCHEDULED MEDS GIVEN. REPLACED INTERDRY CLOTH AND APPLIED ORDERED NYSTATIN POWDERED. DENIES PAIN. WILL CONTINUE TO MONITOR.
[2020-07-18 09:48] LABS: BASOPHILS % (AUTO) 0.3 % (0.0-2.0); EOSINOPHILS % (AUTO) 0.6 % (0.0-4.0); HEMATOCRIT 33.7 % (36-48); HEMOGLOBIN 11.1 g/dL (12.0-16.0); LYMPHOCYTES # (AUTO) 0.5 K/uL (2.5-16.5); LYMPHOCYTES % (AUTO) 6.5 % (20.5-51.1); MEAN CORPUSCULAR HEMOGLOBIN 31 pg (27-31); MEAN CORPUSCULAR HGB CONC 33 g/dL (33-37); MEAN CORPUSCULAR VOLUME 94.6 fL (80-94); MONOCYTES # (AUTO) 0.6 K/uL (0.8-1.0); MONOCYTES % (AUTO) 7.2 % (1.7-9.3); NEUTROPHILS # (AUTO) 6.8 K/uL (1.8-7.7); NEUTROPHILS % (AUTO) 85.4 % (42.2-75.2); PLATELET COUNT (AUTO) 238 K/uL (140-450); RED BLOOD CELL COUNT(AUTO) 3.56 MIL/uL (4.20-5.40); RED CELL DISTRIBUTION WIDTH 19.5 % (11.6-13.7)
[2020-07-18 09:52] LABS: CHLORIDE 103 mmol/L (98-107); CREATININE 1.3 mg/dL (0.6-1.3); GLUCOSE 161 mg/dL (74-106); POTASSIUM 4.2 mmol/L (3.5-5.1); SODIUM SERUM 141 mmol/L (136-145); UREA NITROGEN, BLOOD 16 mg/dL (7-18)
[2020-07-18 10:02] LABS: ANION GAP 14.9 (8-16); CARBON DIOXIDE 27.3 mmol/L (21-32)
--- NOTE | 2020-07-18 11:20 | NUR ---
CHECKED ON PATIENT. PATIENT IS ASLEEP. NOTED CHEST RISE AND FALL. NO S/S OF DISTRESS NOTED. WILL CONTINUE TO MONITOR.
--- NOTE | 2020-07-18 13:39 | NUR ---
RECOMMENDATION TO CHANGE DIET TO CCHO 75 GM MECHANICAL SOFT WITH GLUCERNA WAS APPROVED BY DR. VALDOVINOS AND RECEIVED TORB.
[2020-07-18] MEDS: MAG SULF 2000 MG/WATER PREMIX 50 ML IV SCH ×2 (13:54→16:11)
--- NOTE | 2020-07-18 14:00 | NUR ---
ADMINISTERED MAG RIDER. PATIENT MAGNESIUM LEVEL WAS 1.5 L
--- NOTE | 2020-07-18 14:35 | NUR ---
07/18/20 RD INITIAL ASSESSMENT COMPLETED PLEASE REFER TO NUTRITION ASSESSMENT UNDER CARE ACTIVITY FOR ESTIMATED NUTRITIONAL NEEDS. 1. RECOMMENDED MECHANICAL SOFT CCHO 75 GM DIET TOLERATED 2. RECOMMEND GLUCERNA TID VANILLA 3. PROVIDE ASSISTANCE WITH MEALS 4. ENCOURAGE PO INTAKE ABOVE 75% 5. RD TO FOLLOW-UP 3-5 DAYS, MODERATE RISK KEATON RAMSAY, RD
--- NOTE | 2020-07-18 14:37 | NUR ---
DC PLANNING: PT HAS AN ORDER TO GO TO [facility] FOR PHYSICAL THERAPY. FAXED TO [employer].SPOKE WITH PATIENT AND SHE AGREED TO GO TO ANY FACILITY WHO EVER CONTRACTED WITH INSURANCE. FAXED TO [facility]. CM TO FOLLOW Addendum: 07/19/20 at 1156 by Aziza Greene RN LATE ENTRY: ON 07/18/20 CALLED PT'S INSURANCE [facility] [place] [id number] SPOKE WITH SAILAJA BARTHOLOMEW DISCUSSED THE DC PLAN TO [facility]. [facility] WAS ACCEPTING PATIENT BUT NEEDED TO DISCUSS WITH SAILAJA FOR THE TRANSPORTATION TO 'S OFFICE FOR CHEMO. PER SAILAJA CHEMO IS ALREADY APPROVED AND THEY CAN USE THEIR TRANSPORT AND WILL CALL THEM TO DISCUSS.CM TO FOLLOW Addendum: 07/19/20 at 1202 by Aziza Greene RN DC PLANNING: [facility] DECLINED TO TAKE PATIENT. CHECKED WITH [facility] SPOKE WITH JORDON WILLING TO ACCEPT PATIENT, IF PT'S FAMILY OR INSURANCE PROVIDED TRANSPORTATION. CALLED INSURANCE TRANSPORTATION [phone] STATED HER TRANSPORTATION BENEFIT IS EXHAUSTED. I SPOKE WITH PATIENT EXPLAINED THE SITUATION STATED SHE IS COVERED UNTIL JANUARY 2021 AT THE SAME TIME WANTED ME TO DISCUSS WITH HER SON LUCAS. I CALLED LUCAS LEFT A MESSAGE AND I CALLED SAILAJA AND LEFT A MESSAGE. CM TO FOLLOW Addendum: 07/19/20 at 1216 by Aziza Greene RN DC PLANNING: SPOKE WITH PT'S SON LUCAS DISCUSSED THE ISSUE OF TRANSPORT. PER LUCAS STATED HE WILL PROVIDE TRANSPORT. NOTIFIED JORDON AT [facility] [place] AWAITING FOR THE RESPONSE. CM TO FOLLOW Addendum: 07/19/20 at 1333 by Aziza Greene RN DC PLANNING: ARRANGED TRANSPORT WITH [facility] DIRECTOR OF VALUATION TIME 4PM. PROVIDE THE AUTH # [id number] [employer] IS ASKING THE HARD COPY OF THE AUTHORIZATION. CALLED SAILAJA AT [facility] ,LEFT A MESSAGE CM TO FOLLOW. Addendum: 07/19/20 at 1507 by Aziza Greene RN DC PLANNING: CALLED [facility] SPOKE WITH DAYNA PROVIDE THE CODE FOR TRANSPORT [id number], [id number], [id number] . CALLED [facility] AND PROVIDED THE CODE FOR [facility] PER SAILAJA SHE WILL FAX THE HARD COPY OF AUTH TO [facility]. AUTH # [id number] DIRECTOR OF VALUATION TIME 4 PM CM TO FOLLOW.
[2020-07-18 16:00] VITALS: BP 130/72
--- NOTE | 2020-07-18 16:15 | NUR ---
ADMINISTERED 2ND BAG OF MAG RIDER.
--- NOTE | 2020-07-18 17:45 | NUR ---
CHECKED ON PATIENT. PATIENT IS STABLE. NO S/S OF DISTRESS NOTED. DENIES PAIN. WILL CONTINUE TO MONITOR.
--- NOTE | 2020-07-18 19:20 | NUR ---
ENDORSED TO LIFELINE REPRESENTATIVES NURSE FOR CONTINUITY OF CARE. PT IS STABLE.
--- NOTE | 2020-07-18 19:30 | NUR ---
RECEIVED REPORT AT BEDSIDE FOR CONTINUITY OF CARE, PT IN STABLE CONDITION.
--- NOTE | 2020-07-18 20:00 | NUR ---
PT SITTING UP IN BED AOX4 SHE 22G IV IN RIGHT HAND, MAG RIDER COMPLETED, NORMAL SALINE RESTARTED AT THIS TIME. V/S FOLLOWS: T 99.1 P 83 R 18 B/P 121/79 02 93% ON ROOM AIR. ALL FALLS PRECAUTIONS IN PLACE.
--- NOTE | 2020-07-18 20:30 | NUR ---
NYSTATIN PROVIDED TO REDDENED AREAS ORDERED. INTERCLOTH IN ABDOMINAL FOLDS. ALL REQUESTED NEEDS ATTENDED BY STAFF AND CALL TABARES IN REACH.
[2020-07-18] MEDS: MELATONIN 3 MG TAB PO PRN (21:23)
--- NOTE | 2020-07-18 21:30 | NUR ---
PT REQUEST PAIN MEDICATION FOR HEADACHE WELL MEDICATION FOR SLEEPING. PT WAS GIVEN PO/PRN TYLENOL AND MELATONIN FOR MILD HEADACHE AND SLEEPING.
[2020-07-19] VITALS: BP 130/68
[2020-07-19] MEDS: MORPHINE SULFATE 2 MG/ML SYR IVP PRN ×2 (01:02→09:41)
[2020-07-19] MEDS: NACL 0.9% 1,000 ML IV SCH (01:03)
--- NOTE | 2020-07-19 01:30 | NUR ---
PT WOKE UP WITH C/O OF KNEE PAIN 5/10 AND WAS GIVEN PRN/IVP MORPHINE. WILL MONITOR FOR EFFECT, ALL ORDERED PRECAUTIONS IN PLACE.
--- NOTE | 2020-07-19 04:30 | NUR ---
PT TURNED AND REPOSITIONED IN BED V/S STABLE NO C/O VOICED.
--- NOTE | 2020-07-19 07:20 | NUR ---
RECEIVED PATIENT FROM NIGHT NURSE. PATIENT IN BED SLEEPING, EASILY AWAKE AND ALERT. RESP EVEN AND UNLABORED ON ROOM AIR. DENIED OF PAIN AT THIS TIME. NO NOTED DISTRESS. PLAN OF CARE DISCUSSED, PATIENT VERBALIZED UNDERSTANDING. RH 24G INFUSING NS 50ML/HR. HOB ELEVATED. SAFETY MEASURES IN PLACE. CALL LIGHT WITHIN REACH. WILL CONTINUE TO MONITOR.
[2020-07-19 08:00] VITALS: BP 125/72
[2020-07-19] MEDS ORDERED: NYSTATIN POW 100 MU/GM 15 GM BTL TP SCH (08:13)
[2020-07-19] MEDS: ENOXAPARIN 30 MG/0.3 ML SYR SUBQ SCH (08:27)
[2020-07-19] MEDS: INTERDRY CLOTH TP SCH (08:29)
--- NOTE | 2020-07-19 08:45 | NUR ---
PATIENT AWAKE AND ALERT. RESP EVEN AND UNLABORED ON ROOM AIR. PT AT BEDSIDE FOR THERAPY. PATIENT TOLERATED WELL STANDING UP. PATIENT ENCOURAGED TO USE CALL LIGHT NEEDED GETTING OUT OF BED. MORNING ROUTINE MEDICATIONS GIVEN, PATIENT TOLERATED WELL. NO NOTED DISTRESS AT THIS TIME. RH 24G INFUSING NS 50ML/HR. SKIN WARM TO TOUCH AND DRY. LEFT ABD FOLD REDNESS, SKIN INTACT. SWELLING TO LOWER LEFT ANKLES. PLAN OF CARE DISCUSSED, PATIENT VERBALIZED UNDERSTANDING. PATIENT SITTING UP IN BED EATING BREAKFAST. CALL LIGHT WITHIN REACH. WILL CONTINUE TO MONITOR.
--- NOTE | 2020-07-19 11:05 | NUR ---
PATIENT IN BED SLEEPING, CHEST NOTED RISING. NO NOTED DISTRESS. CALL LIGHT WITHIN REACH. WILL CONTINUE TO MONITOR.
[2020-07-19 12:00] VITALS: BP 119/68
--- NOTE | 2020-07-19 13:17 | NUR ---
PATIENT IN BED AWAKE AND ALERT WATCHING TV. PATIENT TOLERATED LUNCH WELL. NO EPISODES OF N/V. RECEIVED ORDER TO DISCHARGE PATIENT. PATIENT IS AWARE. NO NOTED DISTRESS. CALL LIGHT WITHIN REACH. WILL CONTINUE TO MONITOR.
[2020-07-19 15:59] VITALS: BP 119/68
--- NOTE | 2020-07-19 16:10 | NUR ---
REPORT GIVEN TO EYAL MELÉNDEZ. PATIENT IS AWARE OF TRANSFERRED TO [facility].
--- NOTE | 2020-07-19 17:12 | NUR ---
PATIENT LEFT DISCHARGED TO [facility] WITH [facility]. DISCHARGE INSTRUCTIONS GIVEN, PATIENT VERBALIZED UNDERSTANDING. PNEUMO VACC UP TO DATE. PATIENT LEFT IN STABLE CONDITION.
== END 2020-07-19 17:00 ==
LOC: MED 10:45 → MTU 16:34 → INTOOBSV 16:34 → MTU 20:25
PROVIDERS: ADMIT Hospitalist; ATTEND Hospitalist
DX: R53.81 Other malaise (principal); Z20.822 Contact with and (suspected) exposure to COVID-19; M25.572 Pain in left ankle and joints of left foot; E66.01 Morbid (severe) obesity due to excess calories; C18.9 Malignant neoplasm of colon, unspecified; Z96.651 Presence of right artificial knee joint; Z79.899 Other long term (current) drug therapy
CPT/HCPCS: 36415; 71045; 73600; 80048; 80053; 83735; 84100; 84484; 85025; 87081; 87426; 93005; 96361; 96365; 96366; 96372; 96375; 96376; 97112; 97116; 97163; 97530; 99285; G0378; J1650; J2270; J3475; 96360

== ENCOUNTER 2021-01-02 09:33 | Inpatient (IN) | payer OTHER ==
[~2021-01-02] VITALS: Ht 167.6 cm; Wt 132.9 kg
[~2021-01-02 09:33] MED LIST changes: -PHE6.25L PO; +PROM6.2590 PO
[2021-01-02 09:35] VITALS: BP 104/71
--- NOTE | 2021-01-02 09:35 | NUR ---
BIBA BLS TO ER BED 5
--- NOTE | 2021-01-02 09:42 | NUR ---
Patient being evaluated by DR BAUTISTA at bedside.
[2021-01-02] MEDS ORDERED: NACL 0.9% 500 ML IV ONE (09:50)
[2021-01-02] MEDS ORDERED: PANTOPRAZOLE 40 MG INJ VIAL IVP ONE (09:50)
--- NOTE | 2021-01-02 09:51 | NUR ---
DR BAUTISTA AT BEDSIDE.
--- NOTE | 2021-01-02 10:19 | NUR ---
70 Y/O FEMALE BIBA FROM [facility] C/O RECTAL BLEED X4HRS. PER EMS BLEEDING WAS CONTROLLED AND 2HRS AGO PER [facility] BLEEDING UNCONTROLLED. NO ACTIVE BLEEDING ON ASSESSMENT ON ARRIVAL. DENIES N/V/D, DENIES FEVER/CHILLS. PMH: HTN, COLON CA, (SEE CHART FOR EXTENSIVE HX) NKA
--- NOTE | 2021-01-02 10:58 | NUR ---
PUREWICK PLACED ON PATIENT FOR URINE OUTPUT
[2021-01-02 11:02] LABS: BASOPHILS # (AUTO) 0.1 K/uL (0.00-0.22); EOSINOPHILS # (AUTO) 0.6 K/uL (0-0.4); EOSINOPHILS % (AUTO) 6.4 % (0.0-4.0); HEMATOCRIT 26.1 % (36-48); HEMOGLOBIN 8.9 g/dL (12.0-16.0); LYMPHOCYTES # (AUTO) 1.1 K/uL (2.5-16.5); LYMPHOCYTES % (AUTO) 11.9 % (20.5-51.1); MEAN CORPUSCULAR HEMOGLOBIN 34 pg (27-31); MEAN CORPUSCULAR HGB CONC 34 g/dL (33-37); MEAN CORPUSCULAR VOLUME 99.5 fL (80-94); MONOCYTES # (AUTO) 0.6 K/uL (0.8-1.0); MONOCYTES % (AUTO) 6.6 % (1.7-9.3); NEUTROPHILS # (AUTO) 6.9 K/uL (1.8-7.7); NEUTROPHILS % (AUTO) 74.1 % (42.2-75.2); PLATELET COUNT (AUTO) 211 K/uL (140-450); RED BLOOD CELL COUNT(AUTO) 2.62 MIL/uL (4.20-5.40); WHITE BLOOD COUNT (AUTO) 9.4 K/uL (4.8-10.8)
--- NOTE | 2021-01-02 11:19 | NUR ---
URINE COLLECTED AND TAKEN TO THE LAB.
[2021-01-02 11:23] LABS: ALBUMIN 2.7 g/dL (3.4-5.0); ANION GAP 9.6 (8-16); ASPARTATE AMINOTRANSFERASE 7 U/L (15-37); CARBON DIOXIDE 30.5 mmol/L (21-32); CHLORIDE 107 mmol/L (98-107); CREATININE 1.4 mg/dL (0.6-1.3); GLUCOSE 99 mg/dL (74-106); POTASSIUM 5.1 mmol/L (3.5-5.1); SODIUM SERUM 142 mmol/L (136-145); TOTAL BILIRUBIN 0.3 mg/dL (0.0-1.0); UREA NITROGEN, BLOOD 35 mg/dL (7-18)
[2021-01-02 11:37] LABS: BILIRUBIN,URINE NEGATIVE (NEGATIVE); COLOR,URINE YELLOW (YELLOW); PH,URINE 5.5 (5.0-9.0); UGLUCOSE NEGATIVE (NEGATIVE)
[2021-01-02 11:41] LABS: APPEARANCE,URINE HAZY (CLEAR)
[2021-01-02 11:48] LABS: BLOOD, URINE TRACE (NEGATIVE); NITRITE, URINE POSITIVE (NEGATIVE); RBC,URINE 0-5 /HPF (0-5); WBC,URINE 0-5 /HPF (0-5)
[2021-01-02 11:49] LABS: LEUKOCYTE ESTERASE ,URINE TRACE (NEGATIVE)
[2021-01-02] MEDS ORDERED: cefTRIAXone 2,000 MG in DEXTROSE 5% 100 ML IV ONE (12:10)
[2021-01-02] MEDS ORDERED: cefTRIAXone 2,000 MG VIAL ONE ×2 (12:29→12:37)
[2021-01-02] MEDS ORDERED: DEXT 5% / NACL 0.45% 1,000 ML IV SCH (13:05)
--- NOTE | 2021-01-02 13:27 | NUR ---
GAVE REPORT TO ASTRID HODGE, HA IS GOING TO ROOM 120B.
--- NOTE | 2021-01-02 14:01 | NUR ---
Patient will be admitted to care of DR. SCOTT. Admitted to med surg. Will go to room 120b. Belongings list completed. Report to AYESHA velasquez.
[2021-01-02] MEDS ORDERED: MORPHINE SULFATE 2 MG/ML SYR IVP PRN (15:35)
[2021-01-02 16:00] VITALS: BP 108/67
[2021-01-02] MEDS: MORPHINE SULFATE 4 MG/ML SYR IVP PRN (16:14)
--- NOTE | 2021-01-02 18:02 | NUR ---
The patient's care was reviewed and supervised by Kortney Back RN.
--- NOTE | 2021-01-02 19:15 | NUR ---
RECEIVED REPORT FROM MORNING SHIFT FOR CONTINUITY OF CARE. PATIENT IS STABLE IN BED. A&OX4. VERBALLY RESPONSIVE AND ABLE TO COMMUNICATE NEEDS. DENIES PAIN AT THIS TIME. NO APPARENT S/SX OF ACUTE DISTRESS. RESPIRATIONS EVEN AND UNLABORED. ON RA WITH AN O2 SAT OF 98%. RIGHT AC 20G PATENT/INTACT WITH D5NS.45 INFUSING AT 100 ML/HR. PATIENT IS INCONTINENT. PLAN OF CARE AND WHITE COMMUNICATION BOARD UPDATED. BED IN LOW/LOCKED POSITION. CALL LIGHT WITHIN REACH. ENCOURAGE PATIENT TO CALL FOR ANY NEEDS/ASSISTANCE. WILL CONTINUE TO MONITOR.
[2021-01-02] MEDS: PANTOPRAZOLE 40 MG INJ VIAL IVP SCH (20:39)
--- NOTE | 2021-01-02 21:00 | NUR ---
Patient's Plan of Care was discussed and reviewed with SENIOR TAX ANALYST: MARY GILL
--- NOTE | 2021-01-02 21:30 | NUR ---
PATIENT SOILED. CLEANED AND CHANGED PATIENT WITH PRODUCE DEPARTMENT SUPERVISORChantelle CORNELIUS. REPOSITIONED PATIENT FOR COMFORT. PATIENT DENIES PAIN AT THIS TIME. RESPIRATIONS EVEN AND UNLABORED. NO APPARENT S/SX OF ACUTE DISTRESS. WHITE BOARD COMMUNICATION UPDATED. ALL SAFETY MEASURES IN PLACE. CALL LIGHT WITHIN REACH. WILL CONTINUE TO MONITOR.
--- NOTE | 2021-01-02 23:30 | NUR ---
CHECKED PATIENT. STABLE AND ASLEEP IN SUPINE POSITION. CHEST RISING AND FALLING. RESPIRATIONS EVEN AND UNLABORED. NO APPARENT S/SX OF ACUTE DISTRESS. WHITE BOARD COMMUNICATION UPDATED. ALL SAFETY MEASURES IN PLACE. CALL LIGHT WITHIN REACH. WILL CONTINUE TO MONITOR.
[2021-01-03] VITALS: BP 125/68
--- NOTE | 2021-01-03 01:30 | NUR ---
ROUNDED ON PATIENT. STABLE AND ASLEEP. CHEST RISING AND FALLING. RESPIRATIONS EVEN AND UNLABORED. NO APPARENT S/SX OF ACUTE DISTRESS. WHITE BOARD COMMUNICATION UPDATED. ALL SAFETY MEASURES IN PLACE. CALL LIGHT WITHIN REACH. WILL CONTINUE TO MONITOR.
[2021-01-03 04:00] VITALS: BP 118/71
[2021-01-03 06:04] LABS: BASOPHILS % (AUTO) 0.5 % (0.0-2.0); EOSINOPHILS # (AUTO) 0.5 K/uL (0-0.4); EOSINOPHILS % (AUTO) 7.6 % (0.0-4.0); HEMOGLOBIN 8.2 g/dL (12.0-16.0); LYMPHOCYTES % (AUTO) 14.1 % (20.5-51.1); MEAN CORPUSCULAR HEMOGLOBIN 34 pg (27-31); MEAN CORPUSCULAR HGB CONC 34 g/dL (33-37); MONOCYTES # (AUTO) 0.5 K/uL (0.8-1.0); MONOCYTES % (AUTO) 6.7 % (1.7-9.3); NEUTROPHILS % (AUTO) 71.1 % (42.2-75.2); PLATELET COUNT (AUTO) 187 K/uL (140-450); WHITE BLOOD COUNT (AUTO) 7.1 K/uL (4.8-10.8)
[2021-01-03 06:22] LABS: ANION GAP 9.8 (8-16); CARBON DIOXIDE 29.6 mmol/L (21-32); CHLORIDE 109 mmol/L (98-107); CREATININE 1.2 mg/dL (0.6-1.3); GLUCOSE 100 mg/dL (74-106); POTASSIUM 4.4 mmol/L (3.5-5.1); SODIUM SERUM 144 mmol/L (136-145); UREA NITROGEN, BLOOD 30 mg/dL (7-18)
[2021-01-03 06:23] LABS: MAGNESIUM 2.1 mg/dL (1.8-2.4); PHOSPHORUS 4.5 mg/dL (2.5-4.9)
[2021-01-03] MEDS: ONDANSETRON 4 MG/2 ML VIAL IVP PRN (07:01)
--- NOTE | 2021-01-03 07:06 | NUR ---
RECEIVED REPORT FROM HOUSEKEEPING LEAD NURSE FOR CONTINUITY OF CARE. PT STABLE. NO S/S OF DISTRESS. BREATHING SYMMETRICAL. CALL LIGHT IN REACH. ALL SAFETY MEASURES IN PLACE. NPO
--- NOTE | 2021-01-03 07:10 | NUR ---
ENDORSED PATIENT TO MORNING SHIFT FOR CONTINUITY OF CARE. PATIENT IS STABLE.
[2021-01-03] MEDS: PANTOPRAZOLE 40 MG INJ VIAL IVP SCH ×2 (09:16→20:19)
--- NOTE | 2021-01-03 10:23 | NUR ---
PT STATED FEELING ANXIOUS. MEDICATED PER MD ORDER. PT VERBALIZED UNDERSTANDING OF EDUCATION. PHYSICAL THERAPY AT BEDSIDE. PT ABLE TO STAND AND WALK SIDE TO SIDE. PT STABLE. NO S/S OF DISTRESS. BREATHING SYMMETRICAL. CALL LIGHT IN REACH. ALL SAFETY MEASURES IN PLACE.
[2021-01-03] MEDS: LORazepam 2 MG/ML VIAL IVP PRN ×2 (10:28→17:21)
[2021-01-03 12:00] VITALS: BP 121/61
--- NOTE | 2021-01-03 12:25 | NUR ---
PT RESTING IN BED. PT STABLE. NO S/S OF DISTRESS. BREATHING SYMMETRICAL. CALL LIGHT IN REACH. ALL SAFETY MEASURES IN PLACE. NPO
--- NOTE | 2021-01-03 13:25 | NUR ---
PATIENT HAS BEEN SCREENED AND CATEGORIZED MODERATE NUTRITION RISK. PATIENT WILL BE SEEN WITHIN 3-5 DAYS OF ADMISSION. 01/03/21 01/07/[address]
--- NOTE | 2021-01-03 14:35 | NUR ---
PT RESTING IN BED. PT STABLE. NO S/S OF DISTRESS. BREATHING SYMMETRICAL. CALL LIGHT IN REACH. ALL SAFETY MEASURES IN PLACE. LINENS AND GOWN CHANGED.
[2021-01-03 16:00] VITALS: BP 115/58
--- NOTE | 2021-01-03 16:50 | NUR ---
PAGED DR NAPOELS (ROAD MECHANIC FOR BOB) AND DR SALAS. CONSULTS WERE ORDERED FOR PT. WAITING FOR CALL BACK TO UPDATE PT. Addendum: 01/03/21 at 1653 by Logan Alcaraz RN RN DONY TO SEE PT BY END OF DAY
--- NOTE | 2021-01-03 17:22 | NUR ---
NOTIFIED PT ABOUT CONSULTS. SPOKE TO SONIA TO RESTART IV FLUIDS. IV FLUIDS NOW RUNNING PER MD ORDER. PT INSTRUCTED TO SCHEDULE CHEMO UPON DISCHARGE. NO S/S OF DISTRESS. CALL LIGHT IN REACH. ALL SAFETY MEASURES IN PLACE
[2021-01-03] MEDS: DEXT 5% / NACL 0.45% 1,000 ML IV SCH (17:25)
--- NOTE | 2021-01-03 18:34 | NUR ---
MARKETING PERFORMANCE ANALYST AT BEDSIDE. NO S/S OF DISTRESS. BREATHING SYMMETRICAL. CALL LIGHT IN REACH. ALL SAFETY MEASURES IN PLACE. IV RUNNING PER MD ORDER
--- NOTE | 2021-01-03 20:00 | NUR ---
PATIENT WAS RECEIVED AWAKE AND COHERENT, PLEASANT TALKING LADY, DENIES ANY PAIN
--- NOTE | 2021-01-03 22:00 | NUR ---
PATIENT WAS AWAKE REQUESTED TO BE REPOSITION, RN AND NA HELPED REPOSITION THE PATIENT, TOLERATED REPOSITIONING
[2021-01-04] VITALS: BP 125/68
--- NOTE | 2021-01-04 | NUR ---
PATIENT REQUESTED WARM BLANKET A NEW ONE AND REPOSITIONED FROM LEFT TO SUPINE.
--- NOTE | 2021-01-04 02:00 | NUR ---
REQUESTED NEW GOWN PATIENT WAS CLEANED AND PROVIDED WITH GOWN.
[2021-01-04] MEDS: DEXT 5% / NACL 0.45% 1,000 ML IV SCH ×2 (03:05→04:00)
--- NOTE | 2021-01-04 04:00 | NUR ---
NEW IV HYDRATION BAG WAS REPLACED. CONTINUE HYDRATION, INFUSING WELL VIA PUMP AT 80 ML/HOUR.
[2021-01-04 05:50] LABS: BASOPHILS % (AUTO) 0.6 % (0.0-2.0); EOSINOPHILS # (AUTO) 0.4 K/uL (0-0.4); HEMATOCRIT 24.1 % (36-48); HEMOGLOBIN 8.1 g/dL (12.0-16.0); LYMPHOCYTES # (AUTO) 0.7 K/uL (2.5-16.5); MEAN CORPUSCULAR HEMOGLOBIN 34 pg (27-31); MEAN CORPUSCULAR HGB CONC 34 g/dL (33-37); MONOCYTES # (AUTO) 0.5 K/uL (0.8-1.0); MONOCYTES % (AUTO) 6.5 % (1.7-9.3); NEUTROPHILS # (AUTO) 5.4 K/uL (1.8-7.7); NEUTROPHILS % (AUTO) 76.9 % (42.2-75.2); PLATELET COUNT (AUTO) 189 K/uL (140-450); RED BLOOD CELL COUNT(AUTO) 2.39 MIL/uL (4.20-5.40); RED CELL DISTRIBUTION WIDTH 19.6 % (11.6-13.7)
[2021-01-04 06:19] LABS: ALBUMIN 2.8 g/dL (3.4-5.0); ANION GAP 11.8 (8-16); ASPARTATE AMINOTRANSFERASE 10 U/L (15-37); CARBON DIOXIDE 29.3 mmol/L (21-32); CHLORIDE 108 mmol/L (98-107); CREATININE 1.2 mg/dL (0.6-1.3); GLUCOSE 125 mg/dL (74-106); PHOSPHORUS 3.7 mg/dL (2.5-4.9); POTASSIUM 4.1 mmol/L (3.5-5.1); SODIUM SERUM 145 mmol/L (136-145); TOTAL BILIRUBIN 0.2 mg/dL (0.0-1.0); UREA NITROGEN, BLOOD 21 mg/dL (7-18)
--- NOTE | 2021-01-04 07:36 | NUR ---
ALL REPORTS ARE GIVEN, TRANSFER OF CARE ENDORSED.
[2021-01-04 08:00] VITALS: BP 130/74
[2021-01-04] MEDS ORDERED: MAGNESIUM CITRATE 300 ML BTL PO SCH (08:00)
[2021-01-04] MEDS ORDERED: BOWEL EVACUANT DRINK 4,000 ML PDS PO SCH (08:00)
[2021-01-04] MEDS ORDERED: METOCLOPRAMIDE 10 MG/2 ML INJ VIAL IVP SCH (09:30)
[2021-01-04] MEDS: PANTOPRAZOLE 40 MG INJ VIAL IVP SCH (09:41)
[2021-01-04] MEDS: LACTULOSE 20 GM/30 ML UDC PO SCH ×3 (09:41→17:00)
[2021-01-04] MEDS: LORazepam 2 MG/ML VIAL IVP PRN (10:00)
--- NOTE | 2021-01-04 14:30 | NUR ---
Patient left unit at this time via hospital bed for colonoscopy, accompanied by 2 RNs. Patient is awake, no signs of distress.
[2021-01-04] MEDS ORDERED: MIDAZOLAM 2 MG/2 ML VIAL ONE (14:53)
[2021-01-04] MEDS ORDERED: fentaNYL citrate 0.05 MG/ML VIAL ONE (14:53)
[2021-01-04] MEDS ORDERED: MIDAZOLAM 2 MG/2 ML VIAL IVP ONE (15:45)
[2021-01-04] MEDS ORDERED: fentaNYL citrate 0.05 MG/ML VIAL IVP ONE (15:45)
--- NOTE | 2021-01-04 15:45 | NUR ---
Patient is back from GI lab. Colonoscopy not completed due to unsatisfactory prep. Patient drowsy but able to open eyes and respond verbally to questions.
[2021-01-04 16:00] VITALS: BP 99/67
[2021-01-04] MEDS: FERROUS SULFATE 325 MG TABEC PO SCH (17:00)
--- NOTE | 2021-01-04 18:24 | NUR ---
Patient sitting upright in bed eating full liquid diet. No c/o pain at this time, respirations even & nonlabored in room air. Right foot IV 24G SL, intact and asymptomatic.
--- NOTE | 2021-01-04 19:40 | NUR ---
ALEX. REPORT FROM CHARGE NURSE HUNTER. PATIENT RESTING IN BED, AWAKE, A/OX4. OBESE. RESPIRATION EVEN AND UNLABORED. BEDBOUND, SAFETY MEASURES ENFORCED. BED IN THE LOWEST POSITION, SIDE RAILS UP, CALL LIGHT IN REACH. MEDICATIONS FOR THE NIGHT DISCUSSED WITH PATIENT. VERBALIZED UNDERSTANDING. DENIES PAIN 0/10.
[2021-01-04 20:00] VITALS: BP 142/72
--- NOTE | 2021-01-04 20:00 | NUR ---
Patient's Plan of Care was discussed and reviewed with RISK PROFESSIONAL: KEARA MARTINES
[2021-01-04] MEDS: SENNA 8.6 MG TAB PO SCH (21:21)
--- NOTE | 2021-01-04 21:21 | NUR ---
RESTING IN BED,WATCHING TV. SCHEDULED MEDICATIONS FOR THE NIGHT ADMINISTERED.
[2021-01-04] MEDS: MORPHINE SULFATE 4 MG/ML SYR IVP PRN (22:35)
--- NOTE | 2021-01-05 | NUR ---
SLEEPING COMFORTABLY IN BED, RESPIRATION EVEN AND UNLABORED. CALL LIGHT IN REACH. NO APPEARANCE OF PAIN OR DISCOMFORT NOTED.
--- NOTE | 2021-01-05 01:40 | NUR ---
ENDORSED TO AYESHA NEWTON FOR CONTINUITY OF CARE.
--- NOTE | 2021-01-05 01:41 | NUR ---
RECEIVED BEDSIDE REPORT FROM KEARA. PATIENT OBSERVED IN BED APPEARS TO BE ASLEEP. CHEST RISE AND FALL NOTED. NO S/SX OF RESPIRATORY DISTRESS. DX:UTI RECTAL BLEED. PATIENT HAD COLONOSCOPY DONE TODAY SHOWED INTERNAL HEMORRHOIDS AND DIVERTICULOSIS PER MD ITS CAUSE OF POSSIBLE RECTAL BLEED. PT HX COLON CANCER. PER REPORT SKIN IS INTACT. PT IS BEDBOUND. PT INCONTINENT OF B/B. IV ON R FOOT 24G SL. SAFETY MEASURES ARE IN PLACE. CALL LIGHT IS WITHIN REACH. WILL CONTINUE TO MONITOR.
[2021-01-05 04:00] VITALS: BP 145/77
--- NOTE | 2021-01-05 04:00 | NUR ---
VITAL SIGNS ARE WITHIN NORMAL LIMITS. ALL SAFETY MEASURES ARE IN PLACE. WILL CONTINUE TO MONITOR.
[2021-01-05 07:08] LABS: ALBUMIN 2.8 g/dL (3.4-5.0); ANION GAP 10.7 (8-16); ASPARTATE AMINOTRANSFERASE 12 U/L (15-37); CARBON DIOXIDE 29.1 mmol/L (21-32); CHLORIDE 107 mmol/L (98-107); CREATININE 1.1 mg/dL (0.6-1.3); GLUCOSE 101 mg/dL (74-106); POTASSIUM 3.8 mmol/L (3.5-5.1); SODIUM SERUM 143 mmol/L (136-145); TOTAL BILIRUBIN 0.2 mg/dL (0.0-1.0); UREA NITROGEN, BLOOD 14 mg/dL (7-18)
--- NOTE | 2021-01-05 07:08 | NUR ---
RECEIVED REPORT FROM WEBSPHERE ARCHITECT NURSE FOR CONTINUITY OF CARE, POC DISCUSSED. PT IS RESTING IN BED ON ROOM AIR WITH CHEST RISING AND FALLING EVEN AND UNLABORED. PT SHOWS NO S/S OF ACUTE DISTRESS. PT ALERT AND ORIENTED X4. SKIN INTACT. PT HAS A RIGHT FOOT 24G SALINE LOCK. ALL SAFETY MEASURES IN PLACE, CALL LIGHT WITHIN REACH. WILL CONTINUE TO MONITOR.
--- NOTE | 2021-01-05 07:09 | NUR ---
GAVE BEDSIDE REPORT TO DAY RN. PT ENDORSED IN STABLE CONDITION.
[2021-01-05 07:16] LABS: BASOPHILS % (AUTO) 0.5 % (0.0-2.0); EOSINOPHILS # (AUTO) 0.4 K/uL (0-0.4); EOSINOPHILS % (AUTO) 4.9 % (0.0-4.0); HEMATOCRIT 23.2 % (36-48); HEMOGLOBIN 7.8 g/dL (12.0-16.0); LYMPHOCYTES # (AUTO) 0.7 K/uL (2.5-16.5); LYMPHOCYTES % (AUTO) 10.1 % (20.5-51.1); MEAN CORPUSCULAR HEMOGLOBIN 34 pg (27-31); MEAN CORPUSCULAR HGB CONC 34 g/dL (33-37); MEAN CORPUSCULAR VOLUME 100.8 fL (80-94); MONOCYTES # (AUTO) 0.6 K/uL (0.8-1.0); MONOCYTES % (AUTO) 8.2 % (1.7-9.3); NEUTROPHILS # (AUTO) 5.6 K/uL (1.8-7.7); NEUTROPHILS % (AUTO) 76.3 % (42.2-75.2); PLATELET COUNT (AUTO) 200 K/uL (140-450); RED CELL DISTRIBUTION WIDTH 19.6 % (11.6-13.7); WHITE BLOOD COUNT (AUTO) 7.3 K/uL (4.8-10.8)
[2021-01-05 08:00] VITALS: BP 127/52
[2021-01-05] MEDS: LACTULOSE 20 GM/30 ML UDC PO SCH (08:41)
[2021-01-05] MEDS: FERROUS SULFATE 325 MG TABEC PO SCH ×2 (08:41→17:24)
[2021-01-05] MEDS: PSYLLIUM 12.2 GM/PKT PO SCH (08:41)
--- NOTE | 2021-01-05 08:49 | NUR ---
NATALY MEDICATION ADMINISTERED PER MD ORDER, PT TOLERATED ADMINISTRATION. PT TOLERATED ADMINISTRATION. ANSWERED ALL OF PTS QUESTIONS REGARDING PTS PLAN OF CARE. ALL SAFETY MEASURES IN PLACE, CALL LIGHT WITHIN REACH. WILL CONTINUE TO MONITOR.
--- NOTE | 2021-01-05 10:34 | NUR ---
PT IS STABLE IN BED, REPOSITION PER REQUEST. PT HAS ALL NEEDS MET AND DENIES ANY PAIN. ALL SAFETY MEASURES IN PLACE. CALL LIGHT WITHIN REACH. WILL CONTINUE TO MONITOR.
--- NOTE | 2021-01-05 12:08 | NUR ---
01/05/21 RD INITIAL ASSESSMENT COMPLETED PLEASE REFER TO NUTRITION ASSESSMENT UNDER CARE ACTIVITY FOR ESTIMATED NUTRITIONAL NEEDS. RD RECOMMENDATIONS: 1. CONTINUE FULL LIQUID DIET MEDICALLY APPROPRIATE/TOLERATED. 2. IF/WHEN PT IS MEDICALLY STABLE TO ADVANCE DIET, CONSIDER CCHO 60 GM, LOW NA DIET WITH TEXTURE MODIFICATIONS PER MD/INVESTIGATION CLERK. 3. DM DIET EDUCATION PROVIDED TO PT. 4. RD WILL F/U 7 DAYS; LOW RISK. JEANETTE WOODSON RD
[2021-01-05] MEDS ORDERED: LACT10SO11 PO (12:35)
[2021-01-05] MEDS ORDERED: METPCK PO (12:35)
[2021-01-05] MEDS ORDERED: SENN-74 PO (12:35)
[2021-01-05] MEDS ORDERED: SULF-58 PO (12:36)
--- NOTE | 2021-01-05 12:37 | NUR ---
DC ORDER PLACED BY DR. SCOTT. WILL CONTINUE TO FOLLOW
--- NOTE | 2021-01-05 13:08 | NUR ---
DR SCOTT PLACED PT ON REGULAR DIET TILL DISCHARGE
--- NOTE | 2021-01-05 14:54 | NUR ---
@9071 HRS: CONTACTED [facility], SPOKE WITH NATA REGARDING THE DISCHARGE BACK TO THE FACILITY. PER CHRISSIE, PT IS GOING TO ROOM 51-C TRANSPORTATION CONTACTED: [facility], [facility], [facility], NO ANSWER, UNAVAILABLE. [facility] REQUEST FORM FAXED. MARCELA-RN NIB FINISHER AND DARLENE-AFTER SCHOOL DRIVER MADE AWARE. CALLED [facility], NATA NOTIFIED REGARDING THE ISSUE, PER CHRISSIE, PT HAS A 7 DAY BED HOLD.
--- NOTE | 2021-01-05 15:25 | NUR ---
PT IS STABLE ASLEEP IN BED WITH NO ACUTE S/S OF DISTRESS. ALL NEEDS HAVE BEEN MET. WILL CONTINUE TO MONITOR.
[2021-01-05 16:00] VITALS: BP 130/79
--- NOTE | 2021-01-05 17:27 | NUR ---
NATALY MEDICATION ADMINISTERED PER MD ORDER. PT TOLERATED ADMINISTRATION.
--- NOTE | 2021-01-05 18:55 | NUR ---
PT HAS BEEN STABLE THROUGHOUT SHIFT, ALL NEEDS HAVE BEEN MET. PT WILL BE ENDORSED TO BACKGROUND INVESTIGATOR NURSE. POC WILL BE DISCUSSED.
--- NOTE | 2021-01-05 19:05 | NUR ---
RECEIVED ENDORSEMENT FROM MORNING SHIFT FOR CONTINUITY OF CARE. PATIENT IS STABLE AND RESTING IN BED. A&OX4. PATIENT DENIES PAIN AT THIS TIME. ON ROOM AIR WITH AN O2 SAT OF 97%. RESPIRATIONS EVEN AND UNLABORED. NO APPARENT S/SX OF ACUTE DISTRESS. SKIN INTACT. PT HAS A RIGHT FOOT 24G SALINE LOCK. ALL SAFETY MEASURES IN PLACE, CALL LIGHT WITHIN REACH. WILL CONTINUE TO MONITOR.
[2021-01-05] MEDS: ONDANSETRON 4 MG/2 ML VIAL IVP PRN (19:57)
[2021-01-05] MEDS: SENNA 8.6 MG TAB PO SCH (20:38)
--- NOTE | 2021-01-05 20:45 | NUR ---
ADMINISTERED SCHEDULED MEDICATIONS PER MD ORDER. PATIENT TOLERATED WELL. NO AR NOTED AT THIS TIME. PATIENT DENIES PAIN AT THIS TIME. RESPIRATIONS EVEN AND UNLABORED. NO APPARENT ACUTE S/SX OF ACUTE DISTRESS. WHITE COMMUNICATION BOARD UPDATED. ALL SAFETY MEASURES IN PLACE. CALL LIGHT WITHIN REACH. WILL CONTINUE TO MONITOR.
--- NOTE | 2021-01-05 21:10 | NUR ---
PATIENT IS SOILED. PATIENT CHANGED WITH SCHOOL CLERK ADRYAN. PATIENT VERBALIZED SHE IS THANKFUL. PATIENT DENIES PAIN AT THIS TIME.
--- NOTE | 2021-01-05 23:10 | NUR ---
CHECKED PATIENT. STABLE AND ASLEEP. CHEST RISING AND FALLING. RESPIRATIONS EVEN AND UNLABORED. NO APPARENT S/SX OF ACUTE DISTRESS. WHITE BOARD COMMUNICATION UPDATED. ALL SAFETY MEASURES IN PLACE. CALL LIGHT WITHIN REACH. WILL CONTINUE TO MONITOR.
[2021-01-06] VITALS: BP 133/69
--- NOTE | 2021-01-06 00:38 | NUR ---
Patient's Plan of Care was discussed and reviewed with TELE RN: JAIRO HERNANDEZ
--- NOTE | 2021-01-06 05:10 | NUR ---
ANSWERED CALL LIGHT. PATIENT WAKEN UP BY BEEPING IV MACHINE. FIXED MACHINE. PATIENT DENIES PAIN AT THIS TIME. RESPIRATIONS EVEN AND UNLABORED. NO APPARENT S/SX OF ACUTE DISTRESS. WHITE BOARD COMMUNICATION UPDATED. ALL SAFETY MEASURES IN PLACE. CALL LIGHT WITHIN REACH. WILL CONTINUE TO MONITOR.
--- NOTE | 2021-01-06 07:15 | NUR ---
ENDORSED PATIENT TO MORNING SHIFT FOR CONTINUITY OF CARE. PATIENT IS STABLE.
--- NOTE | 2021-01-06 07:16 | NUR ---
RECEIVED REPORT FROM POWER SUPPLY ENGINEER NURSE FOR CONTINUITY OF CARE. PT STABLE. NO S/S OF DISTRESS. BREATHING IS EVEN AND UNLABORED. CALL LIGHT IN REACH. ALL SAFETY MEASURES IN PLACE.
[2021-01-06] MEDS: FERROUS SULFATE 325 MG TABEC PO SCH (08:00)
[2021-01-06] MEDS: PSYLLIUM 12.2 GM/PKT PO SCH (09:02)
[2021-01-06] MEDS: LACTULOSE 20 GM/30 ML UDC PO SCH (09:02)
--- NOTE | 2021-01-06 09:26 | NUR ---
DC PLANNING: THE PATIENT ADMITTED FROM [facility] [place] [place] THROUGH THE ED WITH C/O RECTAL BLEEDING. THE PATIENT HAS A HISTORY OF COLON CA, CAD, DM, CKD AND HTN. GI W/U FOR BLEEDING ORDERED, NEPRHO FOR CKD. IVF'S ORDERED SECONDARY TO CREATININE OF1.4. ID CONSULT, URINE CULTURES POSITIVE FOR E-COLI, PATIENT STARTED ON ROCEPHIN IV. COLONOSCOPY WAS DONE ON 01/04 WITH FINDINGS OF SEVERE DIVERTICULOSIS AND INTERNAL HEMORRHOIDS, BOWEL INADEQUATE FOR FULL STUDY PER DR SALAS. DC ORDER RECEIVED, THE PATIENT WILL GO BACK TO [facility] [place] WITH [facility] TRANSPORT. REQUEST FOR 12:30 SAMPLER AND TEST PREPARER REQUESTED THROUGH THE [facility], THE PATIENT WILL CONTINUE ON PO BACTRIM PER THE ATTENDING MD NOTES. SHE IS ASSIGNED TO ROOM 51C AT [facility] [place], DR SCOTT TO FOLLOW. NUMBER TO CALL REPORT IS [phone]. ABOVE ENDORSED TO THE PATIENTS NURSE ALICIA CM WILL FOLLOW FOR NEEDS.
--- NOTE | 2021-01-06 10:00 | NUR ---
DC PLANNING: TC FROM THE [facility] TRANSPORT, SPOKE WITH CINDY DESIR WILL TRANSPORT THE PATIENT AT 12:30. PATIENTS RN ALICIA NOTIFIED, CM WILL FOLLOW FOR NEEDS.
--- NOTE | 2021-01-06 11:00 | NUR ---
CALLED TO GIVE REPORT TO NURSE AT [facility]. ALL QUESTIONS ANSWERED.
[2021-01-06 11:49] VITALS: BP 132/70
--- NOTE | 2021-01-06 12:30 | NUR ---
PT [place]SP[place] [facility] [place] AND BANDS ARE CUT OFF. PT IS STABLE AND GRATEFUL FOR CARE.
== END 2021-01-06 12:20 | DRG 871 ==
LOC: MED 09:33 → MTU 13:08
PROVIDERS: ADMIT Preventive Medicine Preventive Medicine/Occupational Environmental Medicine; ATTEND Preventive Medicine Preventive Medicine/Occupational Environmental Medicine
PROC: 0DJD8ZZ Inspection of Lower Intestinal Tract, Via Natural or Artificial Opening Endoscopic (ICD-10-PCS; principal; 2021-01-04 14:10)
DX: A41.9 Sepsis, unspecified organism (principal); E43 Unspecified severe protein-calorie malnutrition; K57.31 Diverticulosis of large intestine without perforation or abscess with bleeding; N39.0 Urinary tract infection, site not specified; C18.9 Malignant neoplasm of colon, unspecified; N17.9 Acute kidney failure, unspecified; Z68.42 Body mass index [BMI] 45.0-49.9, adult; D64.9 Anemia, unspecified; B96.20 Unspecified Escherichia coli [E. coli] as the cause of diseases classified elsewhere; B96.89 Other specified bacterial agents as the cause of diseases classified elsewhere; E03.9 Hypothyroidism, unspecified; E11.22 Type 2 diabetes mellitus with diabetic chronic kidney disease; E11.65 Type 2 diabetes mellitus with hyperglycemia; E55.9 Vitamin D deficiency, unspecified; F32.A Depression, unspecified; F41.9 Anxiety disorder, unspecified; I12.9 Hypertensive chronic kidney disease with stage 1 through stage 4 chronic kidney disease, or unspecified chronic kidney disease; K64.8 Other hemorrhoids; I25.10 Atherosclerotic heart disease of native coronary artery without angina pectoris; Z96.651 Presence of right artificial knee joint; N18.30 Chronic kidney disease, stage 3 unspecified; Z90.710 Acquired absence of both cervix and uterus; Z90.49 Acquired absence of other specified parts of digestive tract; Z79.01 Long term (current) use of anticoagulants; Z79.82 Long term (current) use of aspirin; Z79.899 Other long term (current) drug therapy; Z83.3 Family history of diabetes mellitus
CPT/HCPCS: 36415; 80048; 80053; 81001; 82330; 83735; 84100; 85025; 85651; 86140; 86886; 86900; 86901; 87070; 87081; 87086; 96365; 96375; 97110; 97112; 97163-GP; 97530; 99285; C9113; J0696; J2060; J2250; J2270; J2405; J2765; J3010; J7030; J7060

== ENCOUNTER 2021-10-16 19:29 | Inpatient (IN) | payer OTHER, MEDICAID ==
[~2021-10-16] VITALS: Ht 162.6 cm; Wt 130.3 kg
[2021-10-16 19:29] VITALS: BP_SYST 115
[~2021-10-16 19:29] MED LIST changes: +LACT10SO11 PO; +METF-1274 PO; -METF1000 PO; +METPCK PO; +SENN-74 PO; +SULF-58 PO
--- NOTE | 2021-10-16 19:37 | NUR ---
PT BROUGHT TO BED 12 VIA FELICITY JUNIOR
--- NOTE | 2021-10-16 19:45 | NUR ---
received in bed 12, BIBA FROM [facility] WITH ABNORMAL LABS,POTASSUIM 6.9, BUN 63, CREATININE 41, ALERT AWAKE , CONFUSED. SAO2 97% 0N NC, 3L
[2021-10-16] MEDS ORDERED: MORP15TE33 PO (19:48)
--- NOTE | 2021-10-16 20:00 | NUR ---
SL ESTABLISHED, LABS DRAWN
[2021-10-16 20:05] LABS: BASOPHILS % (AUTO) 0.4 % (0.0-2.0); EOSINOPHILS # (AUTO) 0.2 K/uL (0-0.4); EOSINOPHILS % (AUTO) 1.3 % (0.0-4.0); HEMATOCRIT 32.5 % (36-48); HEMOGLOBIN 10.4 g/dL (12.0-16.0); LYMPHOCYTES % (AUTO) 8.5 % (20.5-51.1); MEAN CORPUSCULAR HEMOGLOBIN 29 pg (27-31); MEAN CORPUSCULAR HGB CONC 32 g/dL (33-37); MEAN CORPUSCULAR VOLUME 89.3 fL (80-94); MONOCYTES # (AUTO) 0.7 K/uL (0.8-1.0); MONOCYTES % (AUTO) 5.9 % (1.7-9.3); NEUTROPHILS # (AUTO) 10.4 K/uL (1.8-7.7); NEUTROPHILS % (AUTO) 83.9 % (42.2-75.2); PLATELET COUNT (AUTO) 386 K/uL (140-450); RED BLOOD CELL COUNT(AUTO) 3.64 MIL/uL (4.20-5.40); RED CELL DISTRIBUTION WIDTH 16.6 % (11.6-13.7); WHITE BLOOD COUNT (AUTO) 12.4 K/uL (4.8-10.8)
[2021-10-16 20:25] LABS: ALBUMIN 2.7 g/dL (3.4-5.0); ASPARTATE AMINOTRANSFERASE 11 U/L (15-37); CARBON DIOXIDE 23.5 mmol/L (21-32); CHLORIDE 101 mmol/L (98-107); GLUCOSE 90 mg/dL (74-106); MAGNESIUM 1.7 mg/dL (1.8-2.4); SODIUM SERUM 136 mmol/L (136-145); TOTAL BILIRUBIN 0.3 mg/dL (0.0-1.0)
[2021-10-16 20:27] LABS: CREATININE 6.9 mg/dL (0.6-1.3); POTASSIUM 6.5 mmol/L (3.5-5.1); UREA NITROGEN, BLOOD 61 mg/dL (7-18)
[2021-10-16] MEDS ORDERED: ALBUTEROL 0.083% 2.5 MG/3 ML NEBU INH ONE ×2 (20:30→20:40)
[2021-10-16] MEDS ORDERED: SODIUM ZIRCONIUM CYCLOSILICATE 10 GM POWD.PACK PO ONE (20:30)
[2021-10-16] MEDS ORDERED: CALCIUM GLUCONATE 10% 1,000 MG in NACL 0.9% 50 ML IV ONE (20:50)
[2021-10-16] MEDS ORDERED: INSULIN REGULAR, HUMAN 100 UNIT/ML VIAL SUBQ ONE (20:50)
[2021-10-16] MEDS ORDERED: DEXTROSE 50% 50 ML SYR IVP ONE (20:50)
[2021-10-16] MEDS ORDERED: NACL 0.9% 500 ML IV ONE (21:10)
[2021-10-16] MEDS ORDERED: CALCIUM GLUC 1 GM/50 mL NS BAG 50 ML IV ONE (21:12)
--- NOTE | 2021-10-16 21:15 | NUR ---
BP LOW. 500CC IV BOLUS BEGUN
[2021-10-16] MEDS ORDERED: HYDROmorphone 1 MG/ML AMP IVP PRN (21:50)
[2021-10-16] MEDS ORDERED: ACETAMINOPHEN 325 MG TAB PO PRN (21:50)
--- NOTE | 2021-10-16 22:05 | NUR ---
TO 110 VIA SANDI ACCOMPANIED BY RN AND ERT, ATTACHED TO CM. REPORT GIVEN TO AYESHA MUNGUIA
--- NOTE | 2021-10-16 22:30 | NUR ---
RECEIVED REPORT FROM ER NURSE ALICE FOR CONTINUITY OF CARE. PT ARRIVED ON MST UNIT VIA GURNEY. TOOK 4 PEOPLE TO TRANSFER PT TO BED. PT DROWSY. A&OX2TO3. CONFUSED. CREATININE REMAINS HIGH WENT FROM 6.9 IN ER @ 19:58 TO 7.1@ [address] SCOTT A TEXT. RECEIVED A 1X ORDER FOR KAYEXALATE 30 GMS PO. WHICH WAS GIVEN AT 0035. ALL SAFETY MEASURES IN PLACE. CALL LIGHT WITHIN REACH.
[2021-10-16] MEDS: DEXT 5% / NACL 0.45% 1,000 ML IV SCH (23:43)
[2021-10-17] MEDS ORDERED: SODIUM POLYSTYRENE 15 GM/60 ML UDBTL PO ONE (00:30)
[2021-10-17 00:35] LABS: ANION GAP 16.3 (8-16); CARBON DIOXIDE 24.3 mmol/L (21-32); CHLORIDE 102 mmol/L (98-107); GLUCOSE 82 mg/dL (74-106); POTASSIUM 5.6 mmol/L (3.5-5.1); SODIUM SERUM 137 mmol/L (136-145)
[2021-10-17 00:38] LABS: UREA NITROGEN, BLOOD 61 mg/dL (7-18)
[2021-10-17 00:39] LABS: CREATININE 7.1 mg/dL (0.6-1.3)
--- NOTE | 2021-10-17 01:30 | NUR ---
[facility] RUNNY, LOOSE GREEN/BLACK BM X2. CREATININE TRENDED UP TO 7.1 @[address] SCOTT INFORMED THEN DR. MARY HARDING CONTACTED RE LABS. K+ VALUE CAME DOWN TO 5.6.
[2021-10-17] MEDS ORDERED: SODIUM POLYSTYRENE 15 GM/60 ML UDBTL PO SCH (06:30)
[2021-10-17 06:52] LABS: BASOPHILS # (AUTO) 0.1 K/uL (0.00-0.22); BASOPHILS % (AUTO) 0.5 % (0.0-2.0); EOSINOPHILS # (AUTO) 0.1 K/uL (0-0.4); EOSINOPHILS % (AUTO) 1.2 % (0.0-4.0); HEMATOCRIT 30.6 % (36-48); HEMOGLOBIN 9.9 g/dL (12.0-16.0); LYMPHOCYTES # (AUTO) 0.9 K/uL (2.5-16.5); LYMPHOCYTES % (AUTO) 7.7 % (20.5-51.1); MEAN CORPUSCULAR HEMOGLOBIN 29 pg (27-31); MEAN CORPUSCULAR HGB CONC 32 g/dL (33-37); MEAN CORPUSCULAR VOLUME 89.8 fL (80-94); MONOCYTES # (AUTO) 0.8 K/uL (0.8-1.0); NEUTROPHILS # (AUTO) 9.3 K/uL (1.8-7.7); NEUTROPHILS % (AUTO) 83.6 % (42.2-75.2); PLATELET COUNT (AUTO) 345 K/uL (140-450); RED CELL DISTRIBUTION WIDTH 16.6 % (11.6-13.7); WHITE BLOOD COUNT (AUTO) 11.1 K/uL (4.8-10.8)
[2021-10-17 07:01] LABS: MAGNESIUM 1.5 mg/dL (1.8-2.4); PHOSPHORUS 7.6 mg/dL (2.5-4.9)
[2021-10-17 07:05] LABS: ANION GAP 19.6 (8-16); CARBON DIOXIDE 23.3 mmol/L (21-32); CHLORIDE 103 mmol/L (98-107); GLUCOSE 103 mg/dL (74-106); POTASSIUM 5.9 mmol/L (3.5-5.1); SODIUM SERUM 140 mmol/L (136-145); UREA NITROGEN, BLOOD 60 mg/dL (7-18)
[2021-10-17 07:15] LABS: CREATININE 7.3 mg/dL (0.6-1.3)
--- NOTE | 2021-10-17 07:15 | NUR ---
ESEQUIEL FROM LAB CALLED WITH CRITICAL HIGH CREATININE OF 7.3. DR. HARDING ORDERED KAYEXALATE 45GMS PO X1 DOSE. VERIFIED ORDER THEN PASSED INFORMATION ON TO MORNING NURSE FOR COVERAGE. PT REMAINS A&oX2-3. ALL SAFETY MEASURES IN PLACE. CONTINUE TO MONITOR.
[2021-10-17 08:00] VITALS: BP 74/39
[2021-10-17] MEDS: NACL 0.9% 1,000 ML IV SCH ×2 (08:00→22:40)
--- NOTE | 2021-10-17 08:52 | NUR ---
REFERRED TO DR JEREZ - IF LEVY WILL BE GIVEN - INSPITE OF LOW BP . Addendum: 10/17/21 at 0856 by Tennille Bland RN PER DR. JEREZ - - HOLD LEVY - MADE NEW ORDER - WILL CARRY OUT .
[2021-10-17] MEDS ORDERED: metFORMIN 500 MG TAB PO SCH (09:00)
[2021-10-17] MEDS ORDERED: SULFAMETH/TRIMETH 400/80MG 1 TAB PO SCH ×2 (09:00)
[2021-10-17] MEDS ORDERED: NON-FORMULARY ITEM (Levothyroxine Sodium* (Synthroid*) 0.175 MG) PO SCH (09:00)
[2021-10-17] MEDS ORDERED: TRIAMCINOLONE 0.025% CRM 15 GM TUBE TP SCH (09:00)
[2021-10-17] MEDS ORDERED: BUPROPION HCL 75 MG PO SCH (09:00)
[2021-10-17] MEDS: LACTULOSE 20 GM/30 ML UDC PO SCH (09:00)
[2021-10-17] MEDS: MORPHINE TAB ER 15 MG TABER PO SCH ×2 (09:00→21:00)
[2021-10-17] MEDS: LEVOTHYROXINE 0.075 MG, LEVOTHYROXINE 0.1 MG PO SCH ×2 (09:00)
[2021-10-17] MEDS ORDERED: NON-FORMULARY ITEM (Lisinopril/Hydrochlorothiazide (Lisinopril-Hctz 20-12.5 mg Tab) 1 TAB) PO SCH (09:00)
[2021-10-17] MEDS: PSYLLIUM 12.2 GM/PKT PO SCH (09:00)
[2021-10-17] MEDS: ALBUMIN HUMAN 25% 100 ML IV ONE ×2 (09:13→09:27)
[2021-10-17] MEDS ORDERED: MIDODRINE 5 MG TAB PO SCH (09:15)
[2021-10-17] MEDS ORDERED: ALBUMIN HUMAN 25% 100 ML IV SCH (09:15)
--- NOTE | 2021-10-17 09:20 | NUR ---
HAD 3 LARGE BM - WATERY - LOW BP , NO COMPLAIN MADE .
[2021-10-17] MEDS ORDERED: DEXTROSE 50% 50 ML SYR IVP PRN (09:25)
--- NOTE | 2021-10-17 09:26 | NUR ---
PATIENT HAS BEEN SCREENED AND CATEGORIZED HIGH NUTRITION RISK. PATIENT WILL BE SEEN WITHIN 1-2 DAYS OF ADMISSION. 10/17/21-10/18/21 REVIEWED BY LALI COOL RD
[2021-10-17] MEDS: DEXT 5% / NACL 0.45% 1,000 ML IV SCH ×2 (09:34→16:55)
[2021-10-17] MEDS ORDERED: MAG SULF 2000 MG/WATER PREMIX 50 ML IV SCH (10:00)
[2021-10-17] MEDS: ASPIRIN 81 MG TAB.CHEW PO SCH (11:00)
[2021-10-17] MEDS: SERTRALINE 50 MG TAB PO SCH (11:00)
[2021-10-17] MEDS: FERROUS SULFATE 325 MG TABEC PO SCH ×2 (11:00→21:00)
[2021-10-17] MEDS ORDERED: LEVOTHYROXINE 0.075 MG TAB ONE (11:14)
[2021-10-17] MEDS ORDERED: LEVOTHYROXINE 0.1 MG TAB ONE (11:15)
[2021-10-17 12:00] VITALS: BP 79/48
--- NOTE | 2021-10-17 12:00 | NUR ---
no complain made .
--- NOTE | 2021-10-17 12:20 | NUR ---
GOT TEL CONSENT FROM [facility] . FOR TEMP. HD ACCESS / CATH PLACEMENT . Addendum: 10/17/21 at 1547 by Tennille Bland RN ONCE WITH HD ACCESS - FOR HD . - GOT CONSENT .
[2021-10-17] MEDS: BLOOD GLUCOSE MONITORING 1 DEV DEV FS SCH ×3 (12:30→21:00)
[2021-10-17] MEDS: INSULIN LISPRO SLIDING SCALE 100 UNITS/ML VIAL SUBQ PRN (12:42)
--- NOTE | 2021-10-17 13:00 | NUR ---
BP RE CHECK - 90/60 - SR ON TELE MONITOR
--- NOTE | 2021-10-17 13:45 | NUR ---
DC PLANN[age] YRS OLD FEMALE PATIENT WAS ADMITTED FROM [facility] WITH A DX OF RENAL FAILURE. PT HAS A HX OF COLON CA CAD HTN, ANEMIA, CONSTIPATION AND DM. CXR SHOWED MILD CARDIOMEGALY. RENAL US SHOWED INCREASED ECHOGENICITY AND DECREASED CORTICAL THICKNESS OF BOTH KIDNEYS. RAPID COVID IS NEGATIVE. ADMINISTERED IVF, IV ABX ZOSYN AND CONTINUED HOME MEDS. CONSULTED WITH NEPHRO, ID, SURGEON AND PULMO. DC PLAN TO RETURN TO [facility] WHEN STABLE. CM TO FOLLOW Addendum: 10/23/21 at 1340 by Aziza Greene RN DC PLANNING: PATIENT HAS A DC ORDER TO RETURN TO [facility] CAN GO TO ROOM 28B # TO GIVE REPORT [phone] PER ASTRID GREENE ARRANGE TRANSPORT CURB SETTER TIME 8 PM NOTIFIED JESSICA MELÉNDEZ. CM TO FOLLOW
--- NOTE | 2021-10-17 15:00 | NUR ---
PER THERAPEUTIC ASSISTANT SHE RECOMMENDING CONTROL CARB INTAKE . - DR. Chantelle SCOTT AGREED Addendum: 10/17/21 at 2033 by Tennille Bland RN THE ABOVE NURSE'S NOTES IS TIME ERROR ENTRY , INSTEAD OF 1600 - GWYNLR
--- NOTE | 2021-10-17 15:15 | NUR ---
10/17/2021 RD INITIAL ASSESSMENT COMPLETED. PLEASE REFER TO NUTRITION ASSESSMENT UNDER CARE ACTIVITY FOR ESTIMATED NUTRITIONAL NEEDS. 1.RECOMMEND ADDING CCHO 60 GRAMS TO RENAL DIET. 2.MONITOR PO INTAKE 3.RD TO FOLLOW-UP IN 3-5 DAYS PATIENT IS MODERATE RISK. LALI COOL, RD
--- NOTE | 2021-10-17 15:20 | NUR ---
DC PLANNING PER NOTES, PATIENT A&OX3 THEREFORE SW OUTREACHED TO PT'S SON, HOWEVER, NUMBER ON FILE IS NOT A WORKING NUMBER. SW OUTREACHED TO [facility] TO GATHER COLLATERAL INFORMATION. [facility] SW REPORTED PATIENT IS IN INTERMEDIATE CARE SINCE DEC 2020. PATIENT IS REPORTED TO BE SELF RESPONSIBLE AND HAS ABILITY TO MAKE NEEDS KNOWN AND IS VERBAL. [facility] SW REPORTS PATIENT HAS ADEQUATE FAMILY SUPPORT AND IDENTIFIED PATIENTS NIECE ACTIVE IN HER CARE. SW OUTREACHED TO ALEXRAGHU DENG, PTS NIECE TO GATHER COLLATERAL INFORMATION AND CONFIRM INFORMATION GATHERED FROM [facility] FACILITY SW. ALEX REPORTS PT HAS BEEN WITH FACILITY UNDER SKILLED CARE SINCE April TO HER KNOWLEDGE TRANSITIONED INTO INTERMEDIATE CARE IN JAN 01. PRIOR TO SNF CARE, PATIENT LIVED INDEPENDENTLY. ALEX IS PATIENTS DPOA AND PROVIDED WITH AN UPDATED PHONE NUMBER FOR PATIENTS SON, LUCAS [phone]. ALEX REPORTS SHE IS MEDICAL DECISION MAKER AND HAS BEEN PROVIDING LUCAS WITH UPDATES ON PATIENTS STATUS. ALEX REPORTS THAT [facility] PHYSICIANS HAVE BEEN IN CONTACT AND HAVE PROVIDED UPDATES WITH PATIENTS CARE. ALEX REPORTS THAT PATIENT WAS SCHEDULED TO HAVE SURGERY ON 10/16 AT [facility] HOWEVER, PATIENTS TRANSPORTATION NEVER ARRIVED. PATIENT HAS HX OF COLON CANCER. ALEX REPORTS PATIENTS CONFUSION IS NOT PT'S BASELINE. ALEX DENIES HX OF DIALYSIS AND HH SERVICES. DC PLAN IS FOR PATIENT TO RETURN TO [facility] ONCE CLINICALLY STABLE.
[2021-10-17 16:00] VITALS: BP 82/56
--- NOTE | 2021-10-17 16:00 | NUR ---
bp re check - /60 - no complain made .
--- NOTE | 2021-10-17 17:50 | NUR ---
ENDORSED - PT - STABLE . Addendum: 10/17/21 at 2036 by Tennille Bland RN THE ABOVE NURSE'S NOTE IS AN TIME ERROR ENTRY INSTEAD OF Yesy0 - SAUD
--- NOTE | 2021-10-17 18:00 | NUR ---
STILL NO URINE OUTPUT , NO COMPLAIN MADE , O2 SAT WNL .
--- NOTE | 2021-10-17 19:50 | NUR ---
ENDORSED - PT - STABLE . Addendum: 10/17/21 at 204 by Tennille Bland RN PER DR. KUMAR FLUSH 1CC HEPARIN COMBINE TO 2 CC NSS - TO FLUSH THE HD ACCESS .
[2021-10-17 20:00] VITALS: BP 70/41
[2021-10-17] MEDS: PROMETHAZINE 6.25 MG/5 ML ORASYR PO SCH (21:00)
[2021-10-17] MEDS: SENNA 8.6 MG TAB PO SCH (21:00)
[2021-10-17] MEDS: buPROPion 75 MG TAB PO SCH (21:00)
[2021-10-17] MEDS: PIPERACILLIN/TAZOBACTAM 2.25 GM in DEXTROSE 5% 50 ML IV SCH (21:00)
--- NOTE | 2021-10-17 21:00 | NUR ---
PT BLOOD SUGAR CHECKED = 99. NO SLIDING SCALE COVERAGE.
[2021-10-17] MEDS ORDERED: PROMETH/CODEINE 6.25-10MG/5ML 5 ML UDC ONE (21:21)
--- NOTE | 2021-10-17 21:59 | NUR ---
PT BP TAKEN X3 = 69/40, 69/41 AND 70/40, REPORTED TO DR. Juvenal SCOTT MD ORDER TO GIVE NORMAL SALINE BOLUS X 1 L. ORDER CARRIED OUT.
--- NOTE | 2021-10-17 21:59 | NUR ---
ADDENDUM TO PREVIOUS NOTES. DR. Juvenal SCOTT ORDER TO RECHECK BP AFTER BOLUS ADMINISTRATION.
--- NOTE | 2021-10-17 23:40 | NUR ---
PT BP CHECK AFTER BOLUS, BP = 91/54, P=90. REPORTED TO DR. SCOTT.
[2021-10-18] VITALS (15 sets, daily range): BP systolic 78–140; BP diastolic 38–86
[2021-10-18] MEDS: NACL 0.9% 1,000 ML IV SCH ×3 (00:42→02:44)
[2021-10-18] MEDS: DEXT 5% / NACL 0.45% 1,000 ML IV SCH ×2 (02:55→13:21)
[2021-10-18] MEDS: PIPERACILLIN/TAZOBACTAM 2.25 GM in DEXTROSE 5% 50 ML IV SCH ×3 (05:00→20:58)
[2021-10-18 07:09] LABS: ALBUMIN 2.5 g/dL (3.4-5.0); ANION GAP 22.1 (8-16); ASPARTATE AMINOTRANSFERASE 11 U/L (15-37); CARBON DIOXIDE 20.4 mmol/L (21-32); CHLORIDE 102 mmol/L (98-107); GLUCOSE 108 mg/dL (74-106); MAGNESIUM 1.6 mg/dL (1.8-2.4); POTASSIUM 4.5 mmol/L (3.5-5.1); SODIUM SERUM 140 mmol/L (136-145); TOTAL BILIRUBIN 0.2 mg/dL (0.0-1.0)
[2021-10-18 07:10] LABS: BASOPHILS # (AUTO) 0.1 K/uL (0.00-0.22); BASOPHILS % (AUTO) 0.5 % (0.0-2.0); EOSINOPHILS # (AUTO) 0.1 K/uL (0-0.4); EOSINOPHILS % (AUTO) 1.1 % (0.0-4.0); HEMATOCRIT 30.1 % (36-48); HEMOGLOBIN 9.9 g/dL (12.0-16.0); LYMPHOCYTES # (AUTO) 0.9 K/uL (2.5-16.5); LYMPHOCYTES % (AUTO) 7.3 % (20.5-51.1); MEAN CORPUSCULAR HEMOGLOBIN 29 pg (27-31); MEAN CORPUSCULAR HGB CONC 33 g/dL (33-37); MONOCYTES # (AUTO) 0.8 K/uL (0.8-1.0); MONOCYTES % (AUTO) 6.9 % (1.7-9.3); NEUTROPHILS # (AUTO) 9.8 K/uL (1.8-7.7); NEUTROPHILS % (AUTO) 84.2 % (42.2-75.2); PLATELET COUNT (AUTO) 373 K/uL (140-450); RED BLOOD CELL COUNT(AUTO) 3.38 MIL/uL (4.20-5.40); RED CELL DISTRIBUTION WIDTH 17.2 % (11.6-13.7); UREA NITROGEN, BLOOD 63 mg/dL (7-18); WHITE BLOOD COUNT (AUTO) 11.6 K/uL (4.8-10.8)
[2021-10-18] MEDS: BLOOD GLUCOSE MONITORING 1 DEV DEV FS SCH ×4 (07:30→21:21)
[2021-10-18 07:31] LABS: CREATININE 8.9 mg/dL (0.6-1.3)
--- NOTE | 2021-10-18 07:35 | NUR ---
RECEIVED CALL FROM LAB REGARDING CRITICAL LAB VALUE CREATININE 8.9. NOTIFIED DR. SCOTT, AWAITING CALLBACK.
--- NOTE | 2021-10-18 07:57 | NUR ---
DONNIE SCHOFIELD REPORTED LOW BP 68/30. CALLED DR. SCOTT, ORDERED FOR 1L BOLUS AND TRANSFER TO ICU GIVEN.
--- NOTE | 2021-10-18 08:05 | NUR ---
ENDORSED PT TO ICU NURSE FOR HIGHER LEVEL OF CARE. PT CURRENTLY AWAKE, ALL BELONGINGS RECONCILED, TRANSPORTED VIA BED ASSISTED BY ETIENNE PURI RN.
[2021-10-18 08:08] LABS: HEPATITIS A ANTIBODY IGM Negative (Negative); HEPATITIS B CORE AB TOTAL Negative (Negative); HEPATITIS B SURFACE ANTIBODY Non Reactive (.); HEPATITIS B SURFACE ANTIGEN Negative (Negative)
--- NOTE | 2021-10-18 08:30 | NUR ---
RECEIVED REPORT FROM MST RN. PATIENT CONNECTED TO MONITOR SBP 114.
[2021-10-18] MEDS: LEVOTHYROXINE 0.075 MG, LEVOTHYROXINE 0.1 MG PO SCH ×2 (09:00)
--- NOTE | 2021-10-18 09:00 | NUR ---
PATIENT AWAKE. ORIENTED TO NAME AND YEAR. REORIENTED TO PLACE AND TIME. PATIENT MOVES ALL EXTREMITIES. HEART SOUNDS REGULAR. MONITOR SR. #20G IV STARTED IN LEFT HAND. NS IV BOLUS OF FLUIDS CONNECTED AND INFUSING. RIGHT WRIST #22G IV INFILTRATED AND DC'D. LEFT IJ INCK DIALYSIS CATHETER IN PLACE. NO DRESSING ON SITE. SITE CLEANED AND DRESSING PLACED. O2 AT 4L/NC. ANTERIOR LATERAL BREATH SOUNDS DIMINISHED BILATERALLY. SAO2 92-97%. HYPOACTIVE BOWEL SOUNDS. ABDOMEN LARGE, SOFT, NON-TENDER. PENNY IN PLACE WITH CLOUDY PINK URINE.
[2021-10-18] MEDS ORDERED: LEVOTHYROXINE 0.075 MG TAB ONE ×2 (09:50→09:59)
[2021-10-18] MEDS ORDERED: MAG SULF 2000 MG/WATER PREMIX 50 ML IV ONE (09:50)
[2021-10-18] MEDS ORDERED: LEVOTHYROXINE 0.1 MG TAB ONE ×3 (09:50→10:05)
[2021-10-18] MEDS: ASPIRIN 81 MG TAB.CHEW PO SCH (09:55)
[2021-10-18] MEDS: FERROUS SULFATE 325 MG TABEC PO SCH ×2 (09:56→21:00)
[2021-10-18] MEDS: PSYLLIUM 12.2 GM/PKT PO SCH (09:56)
[2021-10-18] MEDS: LACTULOSE 20 GM/30 ML UDC PO SCH (09:56)
[2021-10-18] MEDS: SERTRALINE 50 MG TAB PO SCH (10:02)
[2021-10-18] MEDS: MORPHINE TAB ER 15 MG TABER PO SCH ×2 (10:47→21:01)
[2021-10-18] MEDS: buPROPion 75 MG TAB PO SCH ×2 (10:48→21:03)
[2021-10-18] MEDS ORDERED: MIDODRINE 5 MG TAB PO PRN (10:55)
--- NOTE | 2021-10-18 11:00 | NUR ---
DR. SCOTT AND DR. HALL HERE TO SEE AND ORDERS RECEIVED. UPDATED ON TRANSFER, BP AND CURRENT STATUS. MAGNESIUM LEVEL 1.6. MAGNESIUM 2GM ORDERED AND INFUSING.
--- NOTE | 2021-10-18 12:00 | NUR ---
DIGITIZER OPERATOR HERE AND UPDATED. PATIENT STARTED ON HEMODIALYSIS.
[2021-10-18] MEDS ORDERED: ALBUMIN HUMAN 25% 100 ML IV SCH (13:00)
--- NOTE | 2021-10-18 13:30 | NUR ---
WOUND CARE EVALUATION NOTES: REASON FOR EVALUATION: LEFT BUTTOCK WOUNDS WOUND ASSESSMENT COMPLETED ON THIS 71 Y/O FEMALE ADMITTED TO ICU WITH DX RENAL FAILURE. PAST MEDICAL HISTORY INCLUDES COLON CA, HYPERTENSION, ANEMIA, CHRONIC PAIN, DM, HYPOTHYROIDISM, ANXIETY/DEPRESSION, VITAMIN D DEFICIEINCY, DIABETIC NEPHROPATHY, HYPERTENSIVE KIDNEY DISEASE. ALL ABOVE INFORMATION WAS OBTAINED FROM THE ADMISSION H&P. PATIENT IS AAOX2, VERBAL, ABLE TO FOLLOW SIMPLE COMMANDS, FORGETFUL. SKIN IS WARM TO TOUCH. REQUIRES ASSISTANCE WITH TURNING. PLAN OF WOUND CARE AND PRESSURE PREVENTATIVE MEASURES DISCUSSED WITH PATIENT AND PRIMARY RN. PATIENT UNABLE TO COMPREHEND, CONFUSED AND FORGETFUL. PATIENT ADMITTED WITH PRESSURE ULCER TO [facility] AND MULTIPLE SKIN TEARS COMORBIDITIES RELATED TO FURTHER SKIN BREAKDOWN SUCH IMPAIRED OR DECREASED MOBILITY AND DECREASED FUNCTIONAL ABILITY, LOW ALBUMIN LEVEL. INTEGUMENTARY: - LEFT PROMIMAL BUTTOCK ABSCESS OPEN WOUND 1 X 0.5 X 0 5 CM, MINIMAL DISCHARGE, NO ODOR. PERIWOUND RED, INTACT. - LEFT DISTAL BUTTOCK WOUND 1.5 X 1 X 4 CM, MINIMAL SEROUS DISCHARGE, NO ODOR. ELDON-WOUND RED, INTACT. RECOMMENDATIONS: - LEFT PROMIMAL BUTTOCK ABSCESS OPEN WOUND: CLEANSE WITH NS, PAT DRY, LIGHTLY BACK WITH 4X4 GAUZE, COVER WITH COMPOSITE DRESSING DAILY AND PRN IF SOILED. - LEFT DISTAL BUTTOCK WOUND: CLEANSE WITH NS, PAT DRY, PACK WITH 1/4 PLAIN PACKING STRIP, COVER WITH GAUZE, AND COVER WITH COMPOSITE DRESSING DAILY AND PRN IF SOILED. - OFFLOAD BILATERAL HEELS BY PLACING BILATERAL HEEL PROTECTORS. - TURN AND REPOSITION PATIENT Q2H TO LEFT AND RIGHT SIDE TO OFFLOAD SACRALCOCCYX. - ASSESS AND MONITOR SKIN CONDITION DURING POSITION CHANGE. PLEASE PAY ATTENTION TO SACRALCOCCYX AND HEELS. - KEEP SKIN DRY AND CLEAN AT ALL TIMES. - RD CONSULT RECOMMENDATIONS DISCUSSED WITH PRIMARY RN. WILL FOLLOW-UP PATIENT Q7-10 DAYS AND PRN. PLEASE CONTACT WOUND CARE NURSE FOR ANY CONCERNS AND CHANGES IN WOUND CONDITION.
--- NOTE | 2021-10-18 14:00 | NUR ---
RECEIVED REPORT FROM LYUBOV RN
--- NOTE | 2021-10-18 15:00 | NUR ---
HEMODIALYSIS DONE, NO OUTPUT
[2021-10-18] MEDS ORDERED: NOREPINEPHRINE 4 MG/4 ML VIAL IV ONE (15:36)
--- NOTE | 2021-10-18 16:00 | NUR ---
SBP CONSISTENTLY BELOW 90 AND MAP BELOW 65. NOTIFIED DR HALL. ORDERED LEVOPHED DRIP. STARTED LEVOPHED 4MCG/MIN
[2021-10-18] MEDS: NOREPINEPHRINE 4 MG in DEXTROSE 5% 250 ML IV PRN (16:07)
[2021-10-18] MEDS ORDERED: VANCOMYCIN PER PHARMACY MC PRN (16:40)
[2021-10-18] MEDS ORDERED: VANCOMYCIN 1,000 MG in DEXTROSE 5% 250 ML IV SCH (18:00)
[2021-10-18 19:24] LABS: APPEARANCE,URINE CLOUDY (CLEAR); BILIRUBIN,URINE NEGATIVE (NEGATIVE); BLOOD, URINE 3+ (NEGATIVE); COLOR,URINE YELLOW (YELLOW); LEUKOCYTE ESTERASE ,URINE 2+ (NEGATIVE); NITRITE, URINE NEGATIVE (NEGATIVE); PH,URINE 6.5 (5.0-9.0); UGLUCOSE NEGATIVE (NEGATIVE)
[2021-10-18 19:25] LABS: WBC,URINE TOO MANY TO COUNT /HPF (0-5)
--- NOTE | 2021-10-18 19:29 | NUR ---
RECEIVED REPORT FROM DAY SHIFT RNJAMES. PT. ALERT, ORIENTED TO HER NAME, NOT ORIENTED TO PLACE, TIME AND DATE. REFUSED CARE AT TIMES. ON NASAL CANULA 2L MAINTAINING O2 SAT GREATER THAN 94%. IV SITE TO LEFT HAND 20G AND LEFT AC 20G, IVF RUNNING D5 1/2 NS AT 50 ML/HR AND LEVOPHED DRIP 4 MCG/MIN. HEMODIALYSIS TODAY WITH NO OUTPUT TAKEN. DIALYSIS SITE TO LEFT IJ. PENNY CATHETER IN PLACED WITH CLOUDY, WITH SEDIMENT COLOR/CONSISTENCY. DIET IS CCHO WITH POOR APPETITE. SKIN NOT INTACT, PLS. SEE WOUND DOCUMENTATIONS. BEDLOCK AND PLACED THE BED IN THE LOWEST HEIGHT. REPOSITIONED AND PROVIDED QUIET ENVIRONMENT. NO S/S OF PAIN. WILL CONT. TO MONITOR.
[2021-10-18] MEDS: SENNA 8.6 MG TAB PO SCH (21:03)
[2021-10-18] MEDS: PROMETHAZINE 6.25 MG/5 ML ORASYR PO SCH (21:06)
[2021-10-18] MEDS: TRIAMCINOLONE 0.025% CRM 15 GM TUBE TP SCH (21:06)
[2021-10-18] MEDS: INSULIN LISPRO SLIDING SCALE 100 UNITS/ML VIAL SUBQ PRN (21:21)
[2021-10-18] MEDS: ALPRAZolam 0.5 MG TAB PO PRN (22:00)
[2021-10-19] VITALS (24 sets, daily range): BP systolic 42–158; BP diastolic 17–86
[2021-10-19] MEDS: PIPERACILLIN/TAZOBACTAM 2.25 GM in DEXTROSE 5% 50 ML IV SCH ×3 (05:20→20:24)
[2021-10-19] MEDS: NOREPINEPHRINE 4 MG in DEXTROSE 5% 250 ML IV PRN (05:45)
[2021-10-19] MEDS ORDERED: LEVOTHYROXINE 0.1 MG TAB ONE (05:50)
[2021-10-19] MEDS ORDERED: LEVOTHYROXINE 0.075 MG TAB ONE (05:50)
[2021-10-19 06:21] LABS: BASOPHILS # (AUTO) 0.1 K/uL (0.00-0.22); BASOPHILS % (AUTO) 1.3 % (0.0-2.0); EOSINOPHILS # (AUTO) 0.3 K/uL (0-0.4); EOSINOPHILS % (AUTO) 2.3 % (0.0-4.0); HEMATOCRIT 26.2 % (36-48); HEMOGLOBIN 8.6 g/dL (12.0-16.0); LYMPHOCYTES % (AUTO) 9.1 % (20.5-51.1); MEAN CORPUSCULAR HEMOGLOBIN 30 pg (27-31); MEAN CORPUSCULAR HGB CONC 33 g/dL (33-37); MEAN CORPUSCULAR VOLUME 89.7 fL (80-94); MONOCYTES # (AUTO) 0.8 K/uL (0.8-1.0); MONOCYTES % (AUTO) 7.3 % (1.7-9.3); NEUTROPHILS # (AUTO) 8.9 K/uL (1.8-7.7); PLATELET COUNT (AUTO) 275 K/uL (140-450); RED BLOOD CELL COUNT(AUTO) 2.92 MIL/uL (4.20-5.40); RED CELL DISTRIBUTION WIDTH 16.6 % (11.6-13.7); WHITE BLOOD COUNT (AUTO) 11.1 K/uL (4.8-10.8)
[2021-10-19] MEDS ORDERED: LEVOTHYROXINE 0.075 MG, LEVOTHYROXINE 0.1 MG PO SCH ×2 (06:30)
[2021-10-19 06:32] LABS: MAGNESIUM 1.8 mg/dL (1.8-2.4)
[2021-10-19 07:17] LABS: ANION GAP 16.1 (8-16); CARBON DIOXIDE 26.6 mmol/L (21-32); CHLORIDE 102 mmol/L (98-107); GLUCOSE 111 mg/dL (74-106); POTASSIUM 3.7 mmol/L (3.5-5.1); SODIUM SERUM 141 mmol/L (136-145); UREA NITROGEN, BLOOD 38 mg/dL (7-18)
[2021-10-19 07:18] LABS: CREATININE 6.3 mg/dL (0.6-1.3)
[2021-10-19] MEDS: SERTRALINE 50 MG TAB PO SCH (08:25)
[2021-10-19] MEDS: ASPIRIN 81 MG TAB.CHEW PO SCH (08:25)
[2021-10-19] MEDS: FERROUS SULFATE 325 MG TABEC PO SCH ×2 (08:25→20:26)
[2021-10-19] MEDS: LACTULOSE 20 GM/30 ML UDC PO SCH (08:26)
[2021-10-19] MEDS: MORPHINE TAB ER 15 MG TABER PO SCH ×2 (08:26→20:33)
[2021-10-19] MEDS: PSYLLIUM 12.2 GM/PKT PO SCH (08:26)
[2021-10-19] MEDS: BLOOD GLUCOSE MONITORING 1 DEV DEV FS SCH ×4 (08:27→20:25)
[2021-10-19] MEDS: TRIAMCINOLONE 0.025% CRM 15 GM TUBE TP SCH ×2 (08:27→21:00)
[2021-10-19] MEDS: DEXT 5% / NACL 0.45% 1,000 ML IV SCH ×2 (08:28→19:10)
[2021-10-19] MEDS: buPROPion 75 MG TAB PO SCH ×2 (08:30→21:00)
[2021-10-19] MEDS ORDERED: ALBUTEROL 0.083% 2.5 MG/3 ML NEBU INH PRN (09:45)
[2021-10-19] MEDS ORDERED: MELATONIN 3 MG TAB PO PRN ×2 (11:40→11:45)
[2021-10-19] MEDS: GAUZE TP SCH (12:07)
--- NOTE | 2021-10-19 19:25 | NUR ---
REPORT RECEIVED FROM OFFGOING RN. PT IS EATING HER DINNER. HER VS ARE WNL SHE'S NO LONGER ON LEVOPHED AND HER BLOOD PRESSURE IS 112/59. SHE IS ON 02 2L VIA NC.SATURATING AT 97%. HER IV ACCESS IS IN THE BENJAMIN WITH D5.45 AT 50CC PER HOUR.SHE HAS AN AUTOMATIC SELF TURNING UNIT ON HER BED. SHE HAS A PENNY CATH IN PLACE AND IT'S DRAINING A SMALL AMT OF CLEAR YELLOW URINE.PT HAS NO SIGNS OF DISTRESS AT THIS TIME.
--- NOTE | 2021-10-19 20:15 | NUR ---
PT CONTINUES TO TRY TO EAT . SHE SAID SHE WAS FINISHED BUT SHE HAD ONLY TAKEN IN LESS THAN 15%. I CUT UP HER FOOD FOR HER AND ENCOURAGED HER TO EAT MORE; SHE FINISHED UP WITH 25%OF THE MEAL TAKEN IN. SHE DID DRINK HER TEA 240CC. SHE REMAINS SLIGHTLY CONFUSED WHEN I GAVE HER PM MED SHE REMOVED THE BLOOD PRESSURE CUFF AND LATER REMOVED ALL OF THE CHEST LEADS.
[2021-10-19] MEDS: SENNA 8.6 MG TAB PO SCH (20:26)
--- NOTE | 2021-10-19 23:00 | NUR ---
PT IS BACK ON THE MONITOR AGAIN FOR THE 3RD TIME, SHE IS SLEEP NOW AND DIDN'T AWAKEN WHEN I REPLACED THE CHEST LEADS . SHE HAD A BP READING OF 42/12, I SUSPECT IT WAS A FLUKE WHEN SHE WAS REMOVING EVERYTHING.
[2021-10-20] VITALS (16 sets, daily range): BP systolic 96–159; BP diastolic 51–72
[2021-10-20] MEDS: PIPERACILLIN/TAZOBACTAM 2.25 GM in DEXTROSE 5% 50 ML IV SCH ×3 (05:16→20:22)
[2021-10-20] MEDS ORDERED: LEVOTHYROXINE 0.075 MG TAB ONE (05:48)
--- NOTE | 2021-10-20 06:00 | NUR ---
CALLED PHARMACY ABOUT THE CONFLICTING ORDER OF SYNTHROID. THE PHARMACIST SAID HE WOULD MAKE THE CORRECTION ON TNE EMAR.
[2021-10-20 06:41] LABS: BASOPHILS % (AUTO) 0.4 % (0.0-2.0); EOSINOPHILS # (AUTO) 0.1 K/uL (0-0.4); EOSINOPHILS % (AUTO) 2.2 % (0.0-4.0); HEMATOCRIT 25.8 % (36-48); HEMOGLOBIN 8.8 g/dL (12.0-16.0); LYMPHOCYTES # (AUTO) 0.7 K/uL (2.5-16.5); LYMPHOCYTES % (AUTO) 10.9 % (20.5-51.1); MEAN CORPUSCULAR HEMOGLOBIN 30 pg (27-31); MEAN CORPUSCULAR HGB CONC 34 g/dL (33-37); MEAN CORPUSCULAR VOLUME 87.7 fL (80-94); MONOCYTES # (AUTO) 0.6 K/uL (0.8-1.0); MONOCYTES % (AUTO) 9.6 % (1.7-9.3); NEUTROPHILS # (AUTO) 5.1 K/uL (1.8-7.7); NEUTROPHILS % (AUTO) 76.9 % (42.2-75.2); PLATELET COUNT (AUTO) 231 K/uL (140-450); RED BLOOD CELL COUNT(AUTO) 2.94 MIL/uL (4.20-5.40); RED CELL DISTRIBUTION WIDTH 15.9 % (11.6-13.7); WHITE BLOOD COUNT (AUTO) 6.6 K/uL (4.8-10.8)
[2021-10-20] MEDS: LEVOTHYROXINE 0.075 MG TAB PO SCH (06:42)
[2021-10-20 06:49] LABS: ALBUMIN 2.4 g/dL (3.4-5.0); ANION GAP 12.8 (8-16); ASPARTATE AMINOTRANSFERASE 12 U/L (15-37); CARBON DIOXIDE 27.6 mmol/L (21-32); CHLORIDE 103 mmol/L (98-107); GLUCOSE 96 mg/dL (74-106); MAGNESIUM 1.7 mg/dL (1.8-2.4); PHOSPHORUS 3.7 mg/dL (2.5-4.9); POTASSIUM 3.4 mmol/L (3.5-5.1); SODIUM SERUM 140 mmol/L (136-145); TOTAL BILIRUBIN 0.3 mg/dL (0.0-1.0); UREA NITROGEN, BLOOD 27 mg/dL (7-18)
--- NOTE | 2021-10-20 07:00 | NUR ---
REPORT RECEIVED FROM AYESHA RODNEY. PT AAOX2, JESÚS, PERDionL, FOLLOWS COMMANDS. PATIENT DENIES PAIN AT THIS TIME. PATIENT HAS PENNY CATHETER IN PLACE WITH ADEQUATE UOP.
[2021-10-20 07:22] LABS: CREATININE 4.6 mg/dL (0.6-1.3)
[2021-10-20] MEDS: BLOOD GLUCOSE MONITORING 1 DEV DEV FS SCH ×4 (07:45→20:25)
--- NOTE | 2021-10-20 08:45 | NUR ---
DR. SCOTT AT BEDSIDE TO ASSESS PATIENT. NEW ORDERS RECEIVED.
[2021-10-20] MEDS: MORPHINE TAB ER 15 MG TABER PO SCH ×2 (09:02→20:21)
[2021-10-20] MEDS: SERTRALINE 50 MG TAB PO SCH (09:02)
[2021-10-20] MEDS: FERROUS SULFATE 325 MG TABEC PO SCH ×2 (09:03→20:21)
[2021-10-20] MEDS: ASPIRIN 81 MG TAB.CHEW PO SCH (09:06)
[2021-10-20] MEDS: buPROPion 75 MG TAB PO SCH ×2 (09:07→20:22)
[2021-10-20] MEDS: PSYLLIUM 12.2 GM/PKT PO SCH (09:07)
[2021-10-20] MEDS: GAUZE TP SCH (09:08)
[2021-10-20] MEDS: TRIAMCINOLONE 0.025% CRM 15 GM TUBE TP SCH ×2 (09:10→20:24)
[2021-10-20] MEDS: LACTULOSE 20 GM/30 ML UDC PO SCH (09:11)
[2021-10-20] MEDS ORDERED: VANCOMYCIN 1,000 MG in DEXTROSE 5% 250 ML IV SCH (10:00)
[2021-10-20] MEDS ORDERED: POTASSIUM CHLORIDE 10 MEQ TABER PO SCH (11:00)
[2021-10-20] MEDS ORDERED: MAG SULF 2000 MG/WATER PREMIX 50 ML IV SCH (11:00)
--- NOTE | 2021-10-20 14:03 | NUR ---
10/20/21 RD FOLLOW UP COMPLETED PLEASE REFER TO NUTRITION ASSESSMENT UNDER CARE ACTIVITY FOR ESTIMATED NUTRITIONAL NEEDS. 1. CONTINUE CCHO 60 GMS AND RENAL DIET TOLERATED 2. RECOMMENDED NEPRO TID FOR NUTRITION SUPPORT 3. MONITOR PO INTAKE AND NUTRITION RELATED LAB VALUES 4. RD TO FOLLOW-UP 3-5 DAYS, MODERATE RISK REVIEWED BY DAI HALL RD
--- NOTE | 2021-10-20 16:45 | NUR ---
DR. NAPOLES TO BEDSIDE TO ASSESS PATIENT. ORDERS RECEIVED.
[2021-10-20] MEDS: HYDROcodone/APAP 5/325 MG 1 TAB TAB PO PRN (17:19)
--- NOTE | 2021-10-20 19:30 | NUR ---
ASSUMED CARE OF PT.INITIAL ASSESSMENT COMPLETED.PT AWAKE.HAVING DINNER WHILE WATCHING TV.SB TO SR NOTED ON MONITOR.ON ROOM AIR.NO SOB NOTED.PERIPHERAL IV G20 TO LT AC INTACT.SALINE LOCK AT THIS TIME.W/PENNY CATHETER TO BSD DRAINING SMALL AMT OF YELLOW URINE WITH SEDIMENTS.SKIN W/PRESSURE ULCER TO LT BUTTOCKS,DRY/INTACT DRESSING.PT WITH GENERALIZED WEAKNESS.DENIES PAIN AT THIS TIME.WILL CONTINUE TO CLOSELY MONITOR PT
[2021-10-20] MEDS: ALPRAZolam 0.5 MG TAB PO PRN (20:21)
[2021-10-20] MEDS: SENNA 8.6 MG TAB PO SCH (20:21)
--- NOTE | 2021-10-20 21:30 | NUR ---
PT USES CALL LIGHT.VERBALIZED BEING READY FOR BED.BED BATH PROVIDED.DENIES PAIN.VERBALIZED FEELING COMFORTABLE AT THIS TIME
--- NOTE | 2021-10-20 23:54 | NUR ---
PT ASLEEP; NO SOB NOTED ON ROOM AIR.SB NOTED ON MONITOR.NO S/SX OF PAIN NOTED
[2021-10-21] VITALS: BP 103/47
--- NOTE | 2021-10-21 02:42 | NUR ---
PTS CONDITION REMAINS UNCHANGED.STILL ON ROOM AIR,NO SOB NOTED.SB NOTED ON MONITOR.NO PAIN NOTED,PT ASLEEP.CALL LIGHT WITHIN REACH
[2021-10-21 04:00] VITALS: BP 102/56
--- NOTE | 2021-10-21 05:00 | NUR ---
PT ASLEEP, EASILY AROUSABLE.DENIES PAIN.DENIES SOB.
[2021-10-21] MEDS: PIPERACILLIN/TAZOBACTAM 2.25 GM in DEXTROSE 5% 50 ML IV SCH ×2 (05:01→12:26)
[2021-10-21] MEDS: LEVOTHYROXINE 0.075 MG TAB PO SCH (05:51)
[2021-10-21] MEDS: LEVOTHYROXINE 0.1 MG TAB PO SCH ×2 (05:51→05:53)
[2021-10-21 06:25] LABS: BASOPHILS % (AUTO) 0.7 % (0.0-2.0); EOSINOPHILS # (AUTO) 0.4 K/uL (0-0.4); EOSINOPHILS % (AUTO) 6.3 % (0.0-4.0); HEMATOCRIT 28.6 % (36-48); HEMOGLOBIN 9.6 g/dL (12.0-16.0); LYMPHOCYTES % (AUTO) 14.3 % (20.5-51.1); MEAN CORPUSCULAR HEMOGLOBIN 30 pg (27-31); MEAN CORPUSCULAR HGB CONC 34 g/dL (33-37); MEAN CORPUSCULAR VOLUME 88.5 fL (80-94); MONOCYTES # (AUTO) 0.5 K/uL (0.8-1.0); MONOCYTES % (AUTO) 7.8 % (1.7-9.3); NEUTROPHILS # (AUTO) 4.8 K/uL (1.8-7.7); NEUTROPHILS % (AUTO) 70.9 % (42.2-75.2); PLATELET COUNT (AUTO) 246 K/uL (140-450); RED BLOOD CELL COUNT(AUTO) 3.23 MIL/uL (4.20-5.40); RED CELL DISTRIBUTION WIDTH 16.5 % (11.6-13.7); WHITE BLOOD COUNT (AUTO) 6.7 K/uL (4.8-10.8)
--- NOTE | 2021-10-21 06:36 | NUR ---
MORNING CARE DONE.PT TOLERATED.NO SOB NOTED.NO C/O PAIN MADE.REPOSITIONED FOR COMFORT. PT WATCHING TV AT THIS TIME
[2021-10-21 06:53] LABS: MAGNESIUM 2.4 mg/dL (1.8-2.4); PHOSPHORUS 3.8 mg/dL (2.5-4.9)
--- NOTE | 2021-10-21 07:00 | NUR ---
REPORT RECEIVED FROM AYESHA BONILLA. PT AAOX3, JESÚS, KENDALL, FOLLOWS COMMANDS. PATIENT DENIES PAIN AT THIS TIME. PATIENT HAS PENNY CATHETER IN PLACE WITH ADEQUATE UOP. PATIENT HAS LEFT IJ DIALYSIS CATH.
[2021-10-21 07:02] LABS: ANION GAP 13.9 (8-16); CHLORIDE 104 mmol/L (98-107); GLUCOSE 91 mg/dL (74-106); POTASSIUM 3.9 mmol/L (3.5-5.1); SODIUM SERUM 141 mmol/L (136-145); UREA NITROGEN, BLOOD 30 mg/dL (7-18)
[2021-10-21 07:03] LABS: CREATININE 4.3 mg/dL (0.6-1.3)
[2021-10-21] MEDS: ALPRAZolam 0.5 MG TAB PO PRN (07:42)
[2021-10-21 08:00] VITALS: BP 110/69
[2021-10-21] MEDS: BLOOD GLUCOSE MONITORING 1 DEV DEV FS SCH ×4 (08:06→21:30)
[2021-10-21] MEDS: GAUZE TP SCH (09:00)
[2021-10-21] MEDS: FERROUS SULFATE 325 MG TABEC PO SCH ×2 (09:55→21:00)
[2021-10-21] MEDS: ASPIRIN 81 MG TAB.CHEW PO SCH (09:56)
[2021-10-21] MEDS: MORPHINE TAB ER 15 MG TABER PO SCH ×2 (09:56→21:48)
[2021-10-21] MEDS: buPROPion 75 MG TAB PO SCH ×2 (09:56→21:00)
[2021-10-21] MEDS: SERTRALINE 50 MG TAB PO SCH (09:56)
[2021-10-21] MEDS: PSYLLIUM 12.2 GM/PKT PO SCH (09:57)
[2021-10-21] MEDS: LACTULOSE 20 GM/30 ML UDC PO SCH (09:57)
[2021-10-21] MEDS: TRIAMCINOLONE 0.025% CRM 15 GM TUBE TP SCH ×2 (10:03→21:00)
[2021-10-21 12:00] VITALS: BP 101/48
[2021-10-21] MEDS: HYDROcodone/APAP 5/325 MG 1 TAB TAB PO PRN ×2 (16:05→21:47)
--- NOTE | 2021-10-21 16:30 | NUR ---
DR. SCOTT AT BEDSIDE TO ASSESS PATIENT. NO NEW ORDERS AT THIS TIME.
--- NOTE | 2021-10-21 17:15 | NUR ---
DR. MCKEON AT BEDSIDE TO ASSESS PATIENT. ORDERS RECEIVED.
--- NOTE | 2021-10-21 18:30 | NUR ---
REPORT GIVEN TO AYESHA RICHARD OF [facility]. PATIENT TRANSFERRED BY BED TO TELE FLOOR ON MONITOR. ALL BELONGINGS WITH PATIENT AT THIS TIME.
[2021-10-21 18:48] VITALS: BP 134/77
--- NOTE | 2021-10-21 18:50 | NUR ---
RECEIVED PT FROM ICU / SANDI , ON TELE MONITOR , NID , O2 SAT WNL ON ROOM AIR , AAO X2 TO 3 , TRANSFER TO WOUND BED BY MANUALLY LIFT - W/ WOUND ON LEFT BUTT . W/ PENNY CATH ATTACH TO URINE BAG . CALL LIGHT WITHIN REACH , WILL CONT. TO MONITOR .
--- NOTE | 2021-10-21 19:50 | NUR ---
endorsed -pt - stable . Addendum: 10/21/21 at 2022 by Tennille Bland RN I DID NOT GIVE THE DUE ABX - MELINA. AYESHA [facility] IS NOT YET TRANSFER THE PT INTO [facility] COMPUTER SYSTEM .
[2021-10-21 20:00] VITALS: BP 120/66
[2021-10-21] MEDS: SENNA 8.6 MG TAB PO SCH (21:00)
[2021-10-21] MEDS ORDERED: cefTRIAXone 1,000 MG VIAL ONE (22:08)
[2021-10-22] VITALS: BP 119/65
--- NOTE | 2021-10-22 01:36 | NUR ---
PATIENTAWAKE ALERT C/O OF BACK PAIN ON MONITOR SINUS ANDIE LUNGS DIMINISH NO COUGH NO IVF. HAS 20 GA LEFT A.C. PATENT TO FLUSH I.C.U.NURSE DID NOT HANG ROCEPHIN 1000MG AT 1800 SO I HUNG IT AT 2200.IT IS TO BE EVERY 24 HOURS. TEMP 98 PATIENT HAS F/C DRAINING YELLOW URINE PATIENT WAS GIVEN NORCO 5/325 MG. 5. BLOOD SUGAR 104 NO NEED FOR INSULIN. PATIENT GIVEN MELATONIN 6 MG NO OTHER SIGNS OF DISTRESS.
[2021-10-22 04:00] VITALS: BP 120/66
[2021-10-22 06:56] LABS: BASOPHILS % (AUTO) 0.6 % (0.0-2.0); EOSINOPHILS # (AUTO) 0.5 K/uL (0-0.4); EOSINOPHILS % (AUTO) 6.9 % (0.0-4.0); HEMATOCRIT 29.7 % (36-48); HEMOGLOBIN 9.9 g/dL (12.0-16.0); LYMPHOCYTES # (AUTO) 0.9 K/uL (2.5-16.5); LYMPHOCYTES % (AUTO) 12.6 % (20.5-51.1); MEAN CORPUSCULAR HEMOGLOBIN 30 pg (27-31); MEAN CORPUSCULAR HGB CONC 33 g/dL (33-37); MEAN CORPUSCULAR VOLUME 88.6 fL (80-94); MONOCYTES # (AUTO) 0.8 K/uL (0.8-1.0); MONOCYTES % (AUTO) 10.4 % (1.7-9.3); NEUTROPHILS # (AUTO) 5.2 K/uL (1.8-7.7); NEUTROPHILS % (AUTO) 69.5 % (42.2-75.2); PLATELET COUNT (AUTO) 223 K/uL (140-450); RED BLOOD CELL COUNT(AUTO) 3.35 MIL/uL (4.20-5.40); RED CELL DISTRIBUTION WIDTH 16.4 % (11.6-13.7); WHITE BLOOD COUNT (AUTO) 7.4 K/uL (4.8-10.8)
[2021-10-22] MEDS: LEVOTHYROXINE 0.075 MG TAB PO SCH (06:59)
[2021-10-22] MEDS: BLOOD GLUCOSE MONITORING 1 DEV DEV FS SCH ×4 (07:01→20:58)
[2021-10-22] MEDS: LEVOTHYROXINE 0.1 MG TAB PO SCH (07:01)
[2021-10-22 07:57] LABS: ANION GAP 13.6 (8-16); CARBON DIOXIDE 26.9 mmol/L (21-32); CHLORIDE 104 mmol/L (98-107); CREATININE 3.7 mg/dL (0.6-1.3); GLUCOSE 88 mg/dL (74-106); POTASSIUM 3.5 mmol/L (3.5-5.1); SODIUM SERUM 141 mmol/L (136-145); UREA NITROGEN, BLOOD 35 mg/dL (7-18)
[2021-10-22 08:00] VITALS: BP 147/60
[2021-10-22 08:00] LABS: MAGNESIUM 2.1 mg/dL (1.8-2.4); PHOSPHORUS 4.4 mg/dL (2.5-4.9)
--- NOTE | 2021-10-22 08:00 | NUR ---
RECEIVED REPORT FROM MANAGER SPECIAL EVENTS FOR CONTINUITY OF CARE. PATIENT ALERT AWAKE ORIENTED X3, NOT IN ANY DISTRESS NOTED. WITH HEPLOCK ON HER LEFT AC G20 INTACT. ON MONITOR SHOWS SB HR. 50. ON ROOM AIR SATURATION 97%. WITH PENNY CATHETER DRAINING TO YELLOWISH CLEAR OUTPUT. CALL LIGHT WITHIN REACH. NEEDS ATTENDED. WILL CONTINUE TO MONITOR.
[2021-10-22 08:11] LABS: FREE T4 (FREE THYROXINE) 0.85 ng/dL (0.76-1.46); THYROID STIMULATING HORMONE 0.37 uIU/mL (0.34-3.74)
[2021-10-22] MEDS: LACTULOSE 20 GM/30 ML UDC PO SCH (08:40)
[2021-10-22] MEDS: FERROUS SULFATE 325 MG TABEC PO SCH ×2 (08:41→20:34)
[2021-10-22] MEDS: ASPIRIN 81 MG TAB.CHEW PO SCH (08:41)
[2021-10-22] MEDS: buPROPion 75 MG TAB PO SCH ×2 (08:41→20:34)
[2021-10-22] MEDS: SERTRALINE 50 MG TAB PO SCH (08:41)
[2021-10-22] MEDS: MORPHINE TAB ER 15 MG TABER PO SCH ×2 (08:41→20:34)
[2021-10-22] MEDS: PSYLLIUM 12.2 GM/PKT PO SCH (08:42)
[2021-10-22] MEDS: GAUZE TP SCH (09:00)
--- NOTE | 2021-10-22 09:00 | NUR ---
ALL DUE MEDICATIONS GIVEN AND TOLERATED WELL.
[2021-10-22 12:00] VITALS: BP 128/61
[2021-10-22] MEDS: INSULIN LISPRO SLIDING SCALE 100 UNITS/ML VIAL SUBQ PRN (12:00)
--- NOTE | 2021-10-22 13:00 | NUR ---
SEEN BY DR. SCOTT, WITH ORDER FOR PICC LINE PLACEMENT. NOTIFIED PICC LINE NURSE COOKIE, HE SAID TO ASK NEPHROLOGY FIRST. PAGED DR NAPOLES AND HE SAID TO HOLD THE REMOVAL OF NICK CATH AND OK TO PUT PICC LINE. FAXED CONSENT FOR PICC LINE TO DR. SCOTT, WAITING FOR THE PAPERS TO SIGN. WILL CONTINUE TO MONITOR.
[2021-10-22] MEDS: PIPERACILLIN/TAZOBACTAM 2.25 GM in DEXTROSE 5% 50 ML IV SCH ×2 (13:19→20:34)
[2021-10-22] MEDS: TRIAMCINOLONE 0.025% CRM 15 GM TUBE TP SCH ×2 (13:19→20:59)
[2021-10-22] MEDS: HYDROcodone/APAP 5/325 MG 1 TAB TAB PO PRN (13:39)
[2021-10-22 16:00] VITALS: BP 134/57
--- NOTE | 2021-10-22 17:30 | NUR ---
CONSENT SIGNED BY DR. SCOTT , NOTIFIED COOKIE AND JES IS 2100. WILL ENDORSE TO THE NEXT SHIFT FOR CONTINUITY OF CARE. PATIENT IN STABLE CONDITION.
--- NOTE | 2021-10-22 19:30 | NUR ---
RECEIVED REPORT FROM DAY SHIFT NURSE FOR CONTINUITY OF CARE. PT ALERT, AWAKE AND ORIENTED X 3, NOT IN ANY DISTRESS NOTED. IV ON L AC G20, INTACT. ON MONITOR SHOWS SR HR. 64. BREATHING EQUAL AND UNLABORED,ON ROOM AIR SATURATION 97%. WITH PENNY CATHETER DRAINING TO YELLOWISH CLEAR OUTPUT.ALL PRECAUTIONS IN PLACE. CALL LIGHT WITHIN REACH. ALL NEEDS ATTENDED. WILL CONTINUE TO MONITOR.
[2021-10-22 20:00] VITALS: BP 123/69
--- NOTE | 2021-10-22 20:30 | NUR ---
SCHEDULED MEDICATIONS GIVEN. PT TOLERATED WELL. WILL CONTINUE TO MONITOR.
[2021-10-22] MEDS: SENNA 8.6 MG TAB PO SCH (20:35)
--- NOTE | 2021-10-22 21:00 | NUR ---
IV ON HER L AC OUT, CATHETER INTACT. STARTED A NEW IV ON R HAND G24, FLUSHING WELL.
--- NOTE | 2021-10-22 23:36 | NUR ---
PT ASLEEP. VISIBLE CHEST RISE AND FALL NOTED. NO ACUTE DISTRESS NOTED. WILL CONTINUE TO MONITOR.
[2021-10-23] VITALS: BP 124/60
--- NOTE | 2021-10-23 00:30 | NUR ---
PICC LINE NURSE COOKIE AT BEDSIDE.
--- NOTE | 2021-10-23 01:00 | NUR ---
PICC LINE PLACE BY PICC LINE NURSE COOKIE ON BLAYNE, DOUBLE LUMEN, FLUSHING WELL. CXR CONFIRMED PLACEMENT.
[2021-10-23 04:00] VITALS: BP 127/59
[2021-10-23] MEDS: PIPERACILLIN/TAZOBACTAM 2.25 GM in DEXTROSE 5% 50 ML IV SCH ×2 (05:05→13:25)
[2021-10-23] MEDS: LEVOTHYROXINE 0.075 MG TAB PO SCH (06:12)
[2021-10-23] MEDS: LEVOTHYROXINE 0.1 MG TAB PO SCH (06:13)
[2021-10-23] MEDS: BLOOD GLUCOSE MONITORING 1 DEV DEV FS SCH ×3 (06:24→16:51)
[2021-10-23 07:06] LABS: BASOPHILS % (AUTO) 0.8 % (0.0-2.0); EOSINOPHILS # (AUTO) 0.4 K/uL (0-0.4); EOSINOPHILS % (AUTO) 6.3 % (0.0-4.0); HEMATOCRIT 28.6 % (36-48); HEMOGLOBIN 9.2 g/dL (12.0-16.0); LYMPHOCYTES # (AUTO) 0.6 K/uL (2.5-16.5); MEAN CORPUSCULAR HEMOGLOBIN 29 pg (27-31); MEAN CORPUSCULAR HGB CONC 32 g/dL (33-37); MEAN CORPUSCULAR VOLUME 90.2 fL (80-94); MONOCYTES # (AUTO) 0.4 K/uL (0.8-1.0); MONOCYTES % (AUTO) 6.3 % (1.7-9.3); NEUTROPHILS # (AUTO) 5.1 K/uL (1.8-7.7); NEUTROPHILS % (AUTO) 77.6 % (42.2-75.2); PLATELET COUNT (AUTO) 205 K/uL (140-450); RED BLOOD CELL COUNT(AUTO) 3.17 MIL/uL (4.20-5.40); RED CELL DISTRIBUTION WIDTH 17.2 % (11.6-13.7); WHITE BLOOD COUNT (AUTO) 6.6 K/uL (4.8-10.8)
--- NOTE | 2021-10-23 07:21 | NUR ---
RECEIVED REPORT FROM SLOT MACHINE REPAIRER NURSE FOR CONTINUITY OF CARE. PATIENT AWAKE NO DISTRESS NOTED.RESPIRATION EVEN AND NOT LABORED NO SHORTNESS OF BREATH. PATIENT ON ROOM AIR. IV SITE ON RIGHT UPPER ARM PICC LINE SALINE LOCK. AND WITH LEFT IJ NICK CATH. NO S/S OF INFECTION. PATIENT WITH PENNY CATHETER DRAINING YELLOW URINE NO HEMATURIA NOTE. ALL SAFETY MEASURE IN PLACE.
--- NOTE | 2021-10-23 07:23 | NUR ---
PT IS STABLE. NO ACUTE THROUGHOUT THE NIGHT.NO S/SX OF DISTRESS NOTED. ALL NEEDS MET.NO COMPLAINS OF PAIN AT THIS TIME. ALL PRECAUTIONS IN PLACE. CALL LIGHT WITHIN REACH. WILL ENDORSED TO AM SHIFT NURSE.
[2021-10-23 07:29] LABS: ALBUMIN 2.3 g/dL (3.4-5.0); ANION GAP 11.2 (8-16); ASPARTATE AMINOTRANSFERASE 10 U/L (15-37); CARBON DIOXIDE 31.1 mmol/L (21-32); CHLORIDE 104 mmol/L (98-107); CREATININE 3.1 mg/dL (0.6-1.3); GLUCOSE 99 mg/dL (74-106); MAGNESIUM 1.8 mg/dL (1.8-2.4); POTASSIUM 3.3 mmol/L (3.5-5.1); SODIUM SERUM 143 mmol/L (136-145); TOTAL BILIRUBIN 0.2 mg/dL (0.0-1.0); UREA NITROGEN, BLOOD 37 mg/dL (7-18)
[2021-10-23 08:00] VITALS: BP 137/69
--- NOTE | 2021-10-23 08:15 | NUR ---
PATIENT COMPLAIN OF ITCHING ON HER EYE LID NOTED WITH REDNESS AND PATIENT SAY SHE USE TO TAKE CLARITIN LEFT MESSAGE TO DR. SCOTT AND HE ORDER CLARITIN ORDER NOTED AND CARRIED OUT RESIDENT AWARE.
[2021-10-23] MEDS ORDERED: LORATADINE 10 MG TAB PO PRN (08:20)
[2021-10-23] MEDS: ASPIRIN 81 MG TAB.CHEW PO SCH (09:02)
[2021-10-23] MEDS: buPROPion 75 MG TAB PO SCH (09:02)
[2021-10-23] MEDS: MORPHINE TAB ER 15 MG TABER PO SCH (09:03)
[2021-10-23] MEDS: SERTRALINE 50 MG TAB PO SCH (09:03)
[2021-10-23] MEDS: FERROUS SULFATE 325 MG TABEC PO SCH (09:04)
[2021-10-23] MEDS: LACTULOSE 20 GM/30 ML UDC PO SCH (09:05)
[2021-10-23] MEDS: PSYLLIUM 12.2 GM/PKT PO SCH (09:05)
[2021-10-23] MEDS: GAUZE TP SCH (09:08)
[2021-10-23] MEDS: TRIAMCINOLONE 0.025% CRM 15 GM TUBE TP SCH (09:09)
--- NOTE | 2021-10-23 09:14 | NUR ---
GIVEN ALL DUE MEDICATION TOLERATED WELL ALSO GIVEN CLARITIN FOR ITCHINESS. DR. SCOTT AT BED SIDE INFORM IF WE CAN GIVE PATIENT K DUR FOR POTASSIUM LEVEL 3.3 AND HE AGREED ORDER NOTED AND CARRIED OUT PATIENT AWARE.
[2021-10-23] MEDS ORDERED: PRO5 PO (09:26)
[2021-10-23] MEDS ORDERED: PIPE50SO5 IV (09:26)
[2021-10-23] MEDS ORDERED: MELA3TAB21 PO (09:26)
[2021-10-23] MEDS ORDERED: KEN.025C TP (09:26)
[2021-10-23] MEDS ORDERED: POTASSIUM CHLORIDE 10 MEQ TABER PO SCH (10:00)
[2021-10-23] MEDS ORDERED: MAG SULF 2000 MG/WATER PREMIX 50 ML IV SCH (10:00)
--- NOTE | 2021-10-23 10:10 | NUR ---
REVIEWED AND DISCUSSED PLAN OF CARE WITH JESSICA JON PT IN STABLE CONDITION.
--- NOTE | 2021-10-23 11:26 | NUR ---
INFORM DR. NAPOLES ORDER FOR PATIENT DISCHARGE IF SHE CLEAR HER PER DR. SCOTT SHE ASKED FOR CREATININE LEVEL TODAY AND YESTERDAY AFTER RESULT REPORTED TO HER SHE SAID TO REMOVED CATHETER AND DISCHARGE PATIENT. BUT LEFT HER A MESSAGE AGAIN CLARIFYING IF IT'S GOES WITH IJ BECAUSE WE CAN'T REMOVE LEFT MESSAGE TO DIALYSIS NURSE MARLA FOR REMOVAL OF NICK CATH.
[2021-10-23 12:00] VITALS: BP 119/67
--- NOTE | 2021-10-23 14:00 | NUR ---
NO ADVERSE REACTION NOTED ON IV ANTIBIOTIC. IT SUPPORT TECHNICIAN REMOVED IJ NICK CATHETER APPLIED DRESSING AND PUT PRESSURE FOR 5 MINUTE NO BLEEDING OR S/S OF INFECTION ALSO REMOVED PENNY CATHETER AT 1330 AND DRESSING ON LEFT BUTTOCK CHANGED. PATIENT TOLERATED ALL ACTIVITY.
--- NOTE | 2021-10-23 14:26 | NUR ---
GAVE REPORT TO NURSE MCLAUGHLIN AT [facility] [place] FOR CONTINUITY OF CARE.
--- NOTE | 2021-10-23 14:30 | NUR ---
PATIENT HAD PHYSICAL THERAPY T BED SIDE PATIENT TOLERATED WELL. STANDING UP AND EXERCISES.
[2021-10-23] MEDS: HYDROcodone/APAP 5/325 MG 1 TAB TAB PO PRN (14:48)
[2021-10-23 16:00] VITALS: BP 123/69
--- NOTE | 2021-10-23 18:05 | NUR ---
RESIDENT ALERT ORIENTED ON STABLE CONDITION NO BLEED ON JUGULAR S/P NICK CATHETER REMOVAL . PATIENT URINATED NO URINE RETENTION NOTED. GIVEN DISCHARGE PACKET WITH INSTRUCTION VERBALIZED UNDERSTANDING. REMOVED NAME BAND , PICC LINE STILL WITH PATIENT NO SIGN ND SYMPTOMS OF BLEEDING OR INFECTION. PATIENT LEFT ON WHEEL CHAIR WITH ALL HER BELONGING.
== END 2021-10-23 18:04 | DRG 871 ==
LOC: MED 19:29 → MTU 20:57 → MIC 10-18 08:20 → MTU 10-21 18:59
PROVIDERS: ADMIT Preventive Medicine Preventive Medicine/Occupational Environmental Medicine; ATTEND Preventive Medicine Preventive Medicine/Occupational Environmental Medicine
PROC: 02H633Z Insertion of Infusion Device into Right Atrium, Percutaneous Approach (ICD-10-PCS; principal; 2021-10-17)
PROC: B548ZZA Ultrasonography of Superior Vena Cava, Guidance (ICD-10-PCS; 2021-10-17)
PROC: 5A1D70Z Performance of Urinary Filtration, Intermittent, Less than 6 Hours Per Day (ICD-10-PCS; 2021-10-17)
PROC: 5A1D70Z Performance of Urinary Filtration, Intermittent, Less than 6 Hours Per Day (ICD-10-PCS; 2021-10-18)
PROC: 5A1D70Z Performance of Urinary Filtration, Intermittent, Less than 6 Hours Per Day (ICD-10-PCS; 2021-10-19)
PROC: 02HV33Z Insertion of Infusion Device into Superior Vena Cava, Percutaneous Approach (ICD-10-PCS; 2021-10-23)
PROC: B548ZZA Ultrasonography of Superior Vena Cava, Guidance (ICD-10-PCS; 2021-10-23)
DX: A41.9 Sepsis, unspecified organism (principal); E43 Unspecified severe protein-calorie malnutrition; N17.0 Acute kidney failure with tubular necrosis; R65.21 Severe sepsis with septic shock; J96.00 Acute respiratory failure, unspecified whether with hypoxia or hypercapnia; N18.6 End stage renal disease; C18.9 Malignant neoplasm of colon, unspecified; Z68.42 Body mass index [BMI] 45.0-49.9, adult; G93.49 Other encephalopathy; N39.0 Urinary tract infection, site not specified; E11.22 Type 2 diabetes mellitus with diabetic chronic kidney disease; N18.9 Chronic kidney disease, unspecified; D63.1 Anemia in chronic kidney disease; E11.21 Type 2 diabetes mellitus with diabetic nephropathy; E88.09 Other disorders of plasma-protein metabolism, not elsewhere classified; E83.41 Hypermagnesemia; E87.5 Hyperkalemia; I25.10 Atherosclerotic heart disease of native coronary artery without angina pectoris; F32.A Depression, unspecified; F41.9 Anxiety disorder, unspecified; E83.51 Hypocalcemia; Z96.651 Presence of right artificial knee joint; S31.829A Unspecified open wound of left buttock, initial encounter; X58.XXXA Exposure to other specified factors, initial encounter; Z20.822 Contact with and (suspected) exposure to COVID-19; G89.4 Chronic pain syndrome; E83.52 Hypercalcemia; B96.1 Klebsiella pneumoniae [K. pneumoniae] as the cause of diseases classified elsewhere; B96.89 Other specified bacterial agents as the cause of diseases classified elsewhere; E11.65 Type 2 diabetes mellitus with hyperglycemia; I12.9 Hypertensive chronic kidney disease with stage 1 through stage 4 chronic kidney disease, or unspecified chronic kidney disease; E66.9 Obesity, unspecified; F03.90 Unspecified dementia, unspecified severity, without behavioral disturbance, psychotic disturbance, mood disturbance, and anxiety; K59.00 Constipation, unspecified; E03.9 Hypothyroidism, unspecified; E83.42 Hypomagnesemia; E87.6 Hypokalemia; E83.39 Other disorders of phosphorus metabolism; Z79.899 Other long term (current) drug therapy; Z79.84 Long term (current) use of oral hypoglycemic drugs; Z85.038 Personal history of other malignant neoplasm of large intestine; Y93.89 Activity, other specified; Y92.89 Other specified places as the place of occurrence of the external cause; Y99.8 Other external cause status; Z99.2 Dependence on renal dialysis
CPT/HCPCS: 36415; 71045; 76770; 80048; 80053; 80202; 81001; 82140; 82948; 83735; 84100; 84439; 84443; 85025; 85651; 86140; 86704; 86706; 86708; 86709; 86803; 87040; 87081; 87086; 87186; 87340; 93005; 94640; 96365; 96372; 96375; 97163-GP; 99291; J0610; J0696; J1644; J1815; J2543; J3370; J3475; J3490; J7060; J7613; P9046; Q0092

== ENCOUNTER 2022-08-31 18:39 | Inpatient (IN) | payer OTHER, MEDICAID ==
[~2022-08-31] VITALS: Ht 167.6 cm; Wt 140.6 kg
[~2022-08-31 18:39] MED LIST changes: +MELA3TAB21 PO; +MORP15TE33 PO; +PIPE50SO5 IV; +PRO5 PO
[2022-08-31 18:50] VITALS: BP 178/106; PULSE 99; RESP 18; TEMP 98.1; O2SAT 99
[2022-08-31] MEDS ORDERED: PANTOPRAZOLE 40 MG INJ VIAL IVP ONE (18:50)
[2022-08-31] MEDS ORDERED: NACL 0.9% 1,000 ML IV ONE (18:50)
[2022-08-31] MEDS ORDERED: ONDANSETRON 4 MG/2 ML VIAL IVP ONE (18:50)
[2022-08-31] MEDS ORDERED: MORPHINE SULFATE 4 MG/ML SYR IVP ONE ×2 (18:50→21:20)
[2022-08-31 19:42] LABS: HEMOGLOBIN 13.1 g/dL (12.0-16.0); MEAN CORPUSCULAR HEMOGLOBIN 29 pg (27-31); MEAN CORPUSCULAR HGB CONC 33 g/dL (33-37); MEAN CORPUSCULAR VOLUME 87.4 fL (80-94); PLATELET COUNT (AUTO) 283 K/uL (140-450); RED BLOOD CELL COUNT(AUTO) 4.58 MIL/uL (4.20-5.40); RED CELL DISTRIBUTION WIDTH 16.1 % (11.6-13.7); WHITE BLOOD COUNT (AUTO) 14.9 K/uL (4.8-10.8)
[2022-08-31 19:49] LABS: INR 0.96 (0.8-1.2); PROTHROMBIN TIME 10.1 secs (10.8-13.4)
[2022-08-31 19:53] LABS: ALANINE AMINOTRANSFERASE 35 U/L (12-78); ALBUMIN 3.5 g/dL (3.4-5.0); ALKALINE PHOSPHATASE 110 U/L (50-136); ANION GAP 15.9 (8-16); ASPARTATE AMINOTRANSFERASE 33 U/L (15-37); CALCIUM 9.2 mg/dL (8.5-10.1); CARBON DIOXIDE 32.7 mmol/L (21-32); CHLORIDE 99 mmol/L (98-107); CREATININE 1.6 mg/dL (0.6-1.3); GLUCOSE 174 mg/dL (74-106); LIPASE 112 U/L (73-393); POTASSIUM 4.6 mmol/L (3.5-5.1); SODIUM SERUM 143 mmol/L (136-145); TOTAL BILIRUBIN 0.5 mg/dL (0.0-1.0); TOTAL PROTEIN, SERUM 8.5 g/dL (6.4-8.2); UREA NITROGEN, BLOOD 34 mg/dL (7-18)
[2022-08-31 19:59] LABS: BASOPHILS % (MANUAL) 0 % (0-2); EOSINOPHILS % (MANUAL) 0 % (0-4); LYMPHOCYTES % (MANUAL) 15 % (20-46); MONOCYTES % (MANUAL) 5 % (5-12); SMUDGE CELLS FEW
[2022-08-31] MEDS ORDERED: METOCLOPRAMIDE 10 MG/2 ML INJ VIAL IVP ONE (21:05)
[2022-08-31 22:07] LABS: APPEARANCE,URINE CLOUDY (CLEAR); BILIRUBIN,URINE NEGATIVE (NEGATIVE); BLOOD, URINE 3+ (NEGATIVE); COLOR,URINE YELLOW (YELLOW); LEUKOCYTE ESTERASE ,URINE 1+ (NEGATIVE); NITRITE, URINE POSITIVE (NEGATIVE); PROTEIN,URINE TRACE (NEGATIVE); UGLUCOSE NEGATIVE (NEGATIVE); UROBILINOGEN,URINE 0.2 EU/dL (0.2 - 1)
[2022-08-31 22:12] LABS: BACTERIA,URINE 4+ /HPF (None Seen); RBC,URINE 20-50 /HPF (0-5)
[2022-08-31 22:13] LABS: MUCUS,URINE 2+ /LPF (None Seen); SQUAMOUS EPITHELIAL CELL,UR 4-10 (MOD) /LPF (0-3 (FEW))
[2022-09-01] VITALS (8 sets, daily range): BP systolic 89–108; BP diastolic 49–64; PULSE 86–107; RESP 18–22; TEMP 97.4–98; O2SAT 91–98
[2022-09-01] MEDS ORDERED: cefTRIAXone 1,000 MG VIAL ONE (01:53)
[2022-09-01] MEDS ORDERED: NACL 0.9% 1,000 ML IV ONE (02:20)
[2022-09-01] MEDS ORDERED: NACL 0.9% 1,000 ML IV SCH ×2 (08:20→14:55)
[2022-09-01] MEDS ORDERED: NACL 0.9% 500 ML IV SCH (08:50)
[2022-09-01] MEDS ORDERED: PANTOPRAZOLE 40 MG TABEC PO ONE (09:00)
[2022-09-01] MEDS: PANTOPRAZOLE 40 MG INJ VIAL IVP SCH ×2 (09:04→21:22)
[2022-09-01 09:19] LABS: BASOPHILS % (AUTO) 0.1 % (0.0-2.0); EOSINOPHILS % (AUTO) 0.1 % (0.0-4.0); HEMATOCRIT 39.2 % (36-48); HEMOGLOBIN 12.7 g/dL (12.0-16.0); LYMPHOCYTES # (AUTO) 0.2 K/uL (2.5-16.5); LYMPHOCYTES % (AUTO) 1.6 % (20.5-51.1); MEAN CORPUSCULAR HEMOGLOBIN 29 pg (27-31); MEAN CORPUSCULAR HGB CONC 32 g/dL (33-37); MEAN CORPUSCULAR VOLUME 88.5 fL (80-94); NEUTROPHILS # (AUTO) 11.6 K/uL (1.8-7.7); NEUTROPHILS % (AUTO) 90.2 % (42.2-75.2); PLATELET COUNT (AUTO) 265 K/uL (140-450); RED BLOOD CELL COUNT(AUTO) 4.44 MIL/uL (4.20-5.40); RED CELL DISTRIBUTION WIDTH 16.8 % (11.6-13.7); WHITE BLOOD COUNT (AUTO) 12.9 K/uL (4.8-10.8)
[2022-09-01 09:34] LABS: ANION GAP 16.9 (8-16); CALCIUM 8.4 mg/dL (8.5-10.1); CHLORIDE 99 mmol/L (98-107); CREATININE 2.6 mg/dL (0.6-1.3); POTASSIUM 4.9 mmol/L (3.5-5.1); SODIUM SERUM 140 mmol/L (136-145); UREA NITROGEN, BLOOD 42 mg/dL (7-18)
[2022-09-01] MEDS ORDERED: DOCUSATE SODIUM 100 MG GELCAP PO PRN (10:10)
[2022-09-01] MEDS ORDERED: MIDODRINE 5 MG TAB PO PRN (10:10)
[2022-09-01] MEDS ORDERED: ACETAMINOPHEN 325 MG TAB PO PRN (10:10)
[2022-09-01] MEDS ORDERED: MELATONIN 3 MG TAB PO PRN (10:10)
[2022-09-01 10:13] LABS: GLUCOSE 144 mg/dL (74-106)
[2022-09-01] MEDS: buPROPion 75 MG TAB PO SCH ×2 (13:00→17:59)
[2022-09-01] MEDS: MORPHINE SULFATE 2 MG/ML SYR IVP PRN ×2 (14:09→21:29)
[2022-09-01] MEDS: NACL 0.9% 1,000 ML IV SCH (18:40)
[2022-09-01] MEDS: FERROUS SULFATE 325 MG TABEC PO SCH (21:00)
[2022-09-02] VITALS (8 sets, daily range): BP systolic 97–132; BP diastolic 50–68; PULSE 79–92; RESP 18–20; TEMP 97–98.4; O2SAT 93–99
[2022-09-02 05:18] LABS: BASOPHILS % (AUTO) 0.3 % (0.0-2.0); EOSINOPHILS # (AUTO) 0.1 K/uL (0-0.4); EOSINOPHILS % (AUTO) 2.1 % (0.0-4.0); HEMATOCRIT 33.8 % (36-48); HEMOGLOBIN 11.2 g/dL (12.0-16.0); LYMPHOCYTES # (AUTO) 0.3 K/uL (2.5-16.5); MEAN CORPUSCULAR HEMOGLOBIN 29 pg (27-31); MEAN CORPUSCULAR HGB CONC 33 g/dL (33-37); MEAN CORPUSCULAR VOLUME 88.1 fL (80-94); MONOCYTES # (AUTO) 0.7 K/uL (0.8-1.0); MONOCYTES % (AUTO) 11.8 % (1.7-9.3); NEUTROPHILS # (AUTO) 4.4 K/uL (1.8-7.7); NEUTROPHILS % (AUTO) 79.8 % (42.2-75.2); PLATELET COUNT (AUTO) 207 K/uL (140-450); RED BLOOD CELL COUNT(AUTO) 3.84 MIL/uL (4.20-5.40); RED CELL DISTRIBUTION WIDTH 16.9 % (11.6-13.7); WHITE BLOOD COUNT (AUTO) 5.6 K/uL (4.8-10.8)
[2022-09-02 05:20] LABS: ANION GAP 15.2 (8-16); CALCIUM 7.5 mg/dL (8.5-10.1); CARBON DIOXIDE 27.8 mmol/L (21-32); CHLORIDE 98 mmol/L (98-107); CREATININE 3.8 mg/dL (0.6-1.3); GLUCOSE 108 mg/dL (74-106); SODIUM SERUM 136 mmol/L (136-145); UREA NITROGEN, BLOOD 56 mg/dL (7-18)
[2022-09-02] MEDS: NACL 0.9% 1,000 ML IV SCH ×4 (06:15→22:40)
[2022-09-02] MEDS: ONDANSETRON 4 MG/2 ML VIAL IVP PRN ×2 (06:15→14:12)
[2022-09-02] MEDS: LEVOTHYROXINE 0.075 MG, LEVOTHYROXINE 0.1 MG PO SCH ×2 (06:22)
[2022-09-02] MEDS: PANTOPRAZOLE 40 MG INJ VIAL IVP SCH ×2 (08:11→21:04)
[2022-09-02] MEDS: MORPHINE SULFATE 2 MG/ML SYR IVP PRN ×2 (08:21→14:10)
[2022-09-02] MEDS: LACTULOSE 20 GM/30 ML UDC PO SCH (08:25)
[2022-09-02] MEDS: FERROUS SULFATE 325 MG TABEC PO SCH ×2 (08:26→21:03)
[2022-09-02] MEDS: buPROPion 75 MG TAB PO SCH ×3 (08:26→17:54)
[2022-09-02] MEDS: ASPIRIN 81 MG TAB.CHEW PO SCH (08:26)
[2022-09-02] MEDS: SERTRALINE 50 MG TAB PO SCH (08:28)
[2022-09-02] MEDS ORDERED: hydroCHLOROthiazide 25 MG TAB PO SCH (09:00)
[2022-09-02] MEDS ORDERED: NON-FORMULARY ITEM (Levothyroxine Sodium* (Synthroid*) 0.175 MG) PO SCH (09:00)
[2022-09-02] MEDS ORDERED: NON-FORMULARY ITEM (Lisinopril/Hydrochlorothiazide (Lisinopril-Hctz 20-12.5 mg Tab) 1 TAB) PO SCH (09:00)
[2022-09-02] MEDS ORDERED: lisinopriL 10 MG TAB PO SCH (09:00)
[2022-09-02] MEDS: LORazepam 2 MG/ML VIAL IVP PRN (16:14)
[2022-09-02] MEDS: NACL 0.9% 500 ML IV SCH ×2 (23:30→23:51)
[2022-09-03] VITALS (9 sets, daily range): BP systolic 112–135; BP diastolic 58–74; PULSE 75–88; RESP 17–20; TEMP 97.1–98; O2SAT 95–99
[2022-09-03] MEDS: NACL 0.9% 500 ML IV SCH ×2 (00:22→00:53)
[2022-09-03] MEDS: ONDANSETRON 4 MG/2 ML VIAL IVP PRN ×2 (00:23→22:57)
[2022-09-03] MEDS: MAG SULF 2000 MG/WATER PREMIX 50 ML IV PRN (02:17)
[2022-09-03] MEDS: MORPHINE SULFATE 2 MG/ML SYR IVP PRN (03:24)
[2022-09-03 03:35] LABS: APPEARANCE,URINE CLEAR (CLEAR); BILIRUBIN,URINE NEGATIVE (NEGATIVE); BLOOD, URINE TRACE-I (NEGATIVE); COLOR,URINE YELLOW (YELLOW); LEUKOCYTE ESTERASE ,URINE TRACE (NEGATIVE); NITRITE, URINE NEGATIVE (NEGATIVE); PH,URINE 5.5 (5.0-9.0); PROTEIN,URINE NEGATIVE (NEGATIVE); UGLUCOSE NEGATIVE (NEGATIVE); UROBILINOGEN,URINE 0.2 EU/dL (0.2 - 1)
[2022-09-03 03:48] LABS: BACTERIA,URINE >30 (MANY) /HPF (None Seen); MUCUS,URINE 1+ /LPF (None Seen); RBC,URINE 0-5 /HPF (0-5); SQUAMOUS EPITHELIAL CELL,UR 0-3 (FEW) /LPF (0-3 (FEW))
[2022-09-03 05:04] LABS: BASOPHILS % (AUTO) 0.4 % (0.0-2.0); EOSINOPHILS # (AUTO) 0.2 K/uL (0-0.4); EOSINOPHILS % (AUTO) 3.2 % (0.0-4.0); HEMATOCRIT 32.3 % (36-48); HEMOGLOBIN 10.8 g/dL (12.0-16.0); LYMPHOCYTES # (AUTO) 0.5 K/uL (2.5-16.5); LYMPHOCYTES % (AUTO) 8.4 % (20.5-51.1); MEAN CORPUSCULAR HEMOGLOBIN 30 pg (27-31); MEAN CORPUSCULAR HGB CONC 33 g/dL (33-37); MEAN CORPUSCULAR VOLUME 88.3 fL (80-94); MONOCYTES # (AUTO) 0.6 K/uL (0.8-1.0); MONOCYTES % (AUTO) 10.7 % (1.7-9.3); NEUTROPHILS # (AUTO) 4.5 K/uL (1.8-7.7); NEUTROPHILS % (AUTO) 77.3 % (42.2-75.2); PLATELET COUNT (AUTO) 192 K/uL (140-450); RED BLOOD CELL COUNT(AUTO) 3.66 MIL/uL (4.20-5.40); RED CELL DISTRIBUTION WIDTH 16.1 % (11.6-13.7); WHITE BLOOD COUNT (AUTO) 5.8 K/uL (4.8-10.8)
[2022-09-03] MEDS ORDERED: LEVOTHYROXINE 0.1 MG TAB ONE (06:49)
[2022-09-03] MEDS ORDERED: LEVOTHYROXINE 0.075 MG TAB ONE (06:49)
[2022-09-03] MEDS: LEVOTHYROXINE 0.075 MG, LEVOTHYROXINE 0.1 MG PO SCH ×2 (06:59)
[2022-09-03 07:15] LABS: ANION GAP 16.2 (8-16); CALCIUM 7.6 mg/dL (8.5-10.1); CARBON DIOXIDE 25.2 mmol/L (21-32); CHLORIDE 101 mmol/L (98-107); CREATININE 2.2 mg/dL (0.6-1.3); GLUCOSE 94 mg/dL (74-106); POTASSIUM 4.4 mmol/L (3.5-5.1); SODIUM SERUM 138 mmol/L (136-145); UREA NITROGEN, BLOOD 52 mg/dL (7-18)
[2022-09-03] MEDS: NACL 0.9% 1,000 ML IV SCH ×2 (08:34→17:48)
[2022-09-03] MEDS: PANTOPRAZOLE 40 MG INJ VIAL IVP SCH ×2 (08:35→20:51)
[2022-09-03] MEDS: LACTULOSE 20 GM/30 ML UDC PO SCH (08:42)
[2022-09-03] MEDS: FERROUS SULFATE 325 MG TABEC PO SCH ×2 (08:42→20:52)
[2022-09-03] MEDS: ASPIRIN 81 MG TAB.CHEW PO SCH (08:43)
[2022-09-03] MEDS: buPROPion 75 MG TAB PO SCH ×3 (08:43→17:13)
[2022-09-03] MEDS: SERTRALINE 50 MG TAB PO SCH (08:43)
[2022-09-03] MEDS: LORazepam 2 MG/ML VIAL IVP PRN ×3 (11:07→22:58)
[2022-09-03] MEDS ORDERED: NYSTATIN POW 100 MU/GM 15 GM BTL TP PRN (12:20)
[2022-09-03] MEDS: MUPIROCIN CA NASAL 2% 1GM TUBE NS SCH (13:31)
[2022-09-03] MEDS: Z-GUARD PASTE TP SCH (13:32)
[2022-09-03] MEDS: CHLORHEXADINE GLUC 2% CLOTH TP SCH (13:32)
[2022-09-03] MEDS: NYSTATIN POW 100 MU/GM 15 GM BTL TP SCH (13:33)
[2022-09-03 19:09] LABS: TOTAL PROTEIN URINE 39.3 MG/DL
[2022-09-04] VITALS (8 sets, daily range): BP systolic 113–139; BP diastolic 57–69; PULSE 78–90; RESP 18–20; TEMP 96.4–98.1; O2SAT 92–98
[2022-09-04] MEDS: NYSTATIN POW 100 MU/GM 15 GM BTL TP SCH ×2 (01:13→13:00)
[2022-09-04] MEDS: Z-GUARD PASTE TP SCH ×2 (01:14→14:10)
[2022-09-04] MEDS: NACL 0.9% 1,000 ML IV SCH ×2 (04:12→14:51)
[2022-09-04 05:16] LABS: BASOPHILS % (AUTO) 0.4 % (0.0-2.0); EOSINOPHILS # (AUTO) 0.3 K/uL (0-0.4); EOSINOPHILS % (AUTO) 3.9 % (0.0-4.0); HEMATOCRIT 31.7 % (36-48); HEMOGLOBIN 10.6 g/dL (12.0-16.0); LYMPHOCYTES # (AUTO) 0.6 K/uL (2.5-16.5); LYMPHOCYTES % (AUTO) 7.6 % (20.5-51.1); MEAN CORPUSCULAR HEMOGLOBIN 29 pg (27-31); MEAN CORPUSCULAR HGB CONC 34 g/dL (33-37); MEAN CORPUSCULAR VOLUME 87.2 fL (80-94); MONOCYTES # (AUTO) 0.6 K/uL (0.8-1.0); MONOCYTES % (AUTO) 8.2 % (1.7-9.3); NEUTROPHILS # (AUTO) 5.9 K/uL (1.8-7.7); NEUTROPHILS % (AUTO) 79.9 % (42.2-75.2); PLATELET COUNT (AUTO) 193 K/uL (140-450); RED BLOOD CELL COUNT(AUTO) 3.63 MIL/uL (4.20-5.40); RED CELL DISTRIBUTION WIDTH 15.7 % (11.6-13.7); WHITE BLOOD COUNT (AUTO) 7.3 K/uL (4.8-10.8)
[2022-09-04 05:24] LABS: ANION GAP 9.1 (8-16); CALCIUM 7.8 mg/dL (8.5-10.1); CARBON DIOXIDE 30.1 mmol/L (21-32); CHLORIDE 103 mmol/L (98-107); CREATININE 1.4 mg/dL (0.6-1.3); GLUCOSE 87 mg/dL (74-106); POTASSIUM 4.2 mmol/L (3.5-5.1); SODIUM SERUM 138 mmol/L (136-145); UREA NITROGEN, BLOOD 31 mg/dL (7-18)
[2022-09-04] MEDS ORDERED: LEVOTHYROXINE 0.1 MG TAB ONE (06:09)
[2022-09-04] MEDS ORDERED: LEVOTHYROXINE 0.075 MG TAB ONE (06:09)
[2022-09-04] MEDS: LORazepam 2 MG/ML VIAL IVP PRN ×2 (06:26→12:39)
[2022-09-04] MEDS: ONDANSETRON 4 MG/2 ML VIAL IVP PRN ×2 (06:27→16:27)
[2022-09-04] MEDS: LEVOTHYROXINE 0.075 MG, LEVOTHYROXINE 0.1 MG PO SCH ×2 (06:30)
[2022-09-04] MEDS: PANTOPRAZOLE 40 MG INJ VIAL IVP SCH ×2 (08:54→20:32)
[2022-09-04] MEDS: LACTULOSE 20 GM/30 ML UDC PO SCH (08:54)
[2022-09-04] MEDS: ASPIRIN 81 MG TAB.CHEW PO SCH (08:55)
[2022-09-04] MEDS: buPROPion 75 MG TAB PO SCH ×3 (08:55→17:00)
[2022-09-04] MEDS: FERROUS SULFATE 325 MG TABEC PO SCH ×2 (08:55→20:31)
[2022-09-04] MEDS: SERTRALINE 50 MG TAB PO SCH (08:55)
[2022-09-04] MEDS: CHLORHEXADINE GLUC 2% CLOTH TP SCH (13:00)
[2022-09-04] MEDS: MUPIROCIN CA NASAL 2% 1GM TUBE NS SCH (14:10)
[2022-09-04] MEDS: ZOLPIDEM 10 MG TAB PO PRN (20:32)
[2022-09-05] VITALS (8 sets, daily range): BP systolic 107–141; BP diastolic 65–82; PULSE 73–98; RESP 17–20; TEMP 97.5–98.1; O2SAT 93–98
[2022-09-05] MEDS: NACL 0.9% 1,000 ML IV SCH ×3 (00:40→20:40)
[2022-09-05] MEDS: Z-GUARD PASTE TP SCH ×2 (01:33→13:12)
[2022-09-05] MEDS: NYSTATIN POW 100 MU/GM 15 GM BTL TP SCH ×2 (01:33→13:11)
[2022-09-05] MEDS: LORazepam 2 MG/ML VIAL IVP PRN ×2 (02:15→13:26)
[2022-09-05 04:56] LABS: BASOPHILS % (AUTO) 0.2 % (0.0-2.0); EOSINOPHILS # (AUTO) 0.3 K/uL (0-0.4); EOSINOPHILS % (AUTO) 4.2 % (0.0-4.0); HEMATOCRIT 31.7 % (36-48); HEMOGLOBIN 10.6 g/dL (12.0-16.0); LYMPHOCYTES # (AUTO) 0.7 K/uL (2.5-16.5); LYMPHOCYTES % (AUTO) 8.9 % (20.5-51.1); MEAN CORPUSCULAR HEMOGLOBIN 29 pg (27-31); MEAN CORPUSCULAR HGB CONC 33 g/dL (33-37); MEAN CORPUSCULAR VOLUME 87.9 fL (80-94); MONOCYTES # (AUTO) 0.6 K/uL (0.8-1.0); MONOCYTES % (AUTO) 6.9 % (1.7-9.3); NEUTROPHILS # (AUTO) 6.4 K/uL (1.8-7.7); NEUTROPHILS % (AUTO) 79.8 % (42.2-75.2); PLATELET COUNT (AUTO) 189 K/uL (140-450); RED BLOOD CELL COUNT(AUTO) 3.61 MIL/uL (4.20-5.40); RED CELL DISTRIBUTION WIDTH 15.3 % (11.6-13.7)
[2022-09-05 05:18] LABS: ANION GAP 13.7 (8-16); CALCIUM 7.8 mg/dL (8.5-10.1); CARBON DIOXIDE 28.3 mmol/L (21-32); CHLORIDE 103 mmol/L (98-107); CREATININE 1.2 mg/dL (0.6-1.3); GLUCOSE 85 mg/dL (74-106); SODIUM SERUM 141 mmol/L (136-145); UREA NITROGEN, BLOOD 20 mg/dL (7-18)
[2022-09-05] MEDS ORDERED: LEVOTHYROXINE 0.1 MG TAB ONE (05:59)
[2022-09-05] MEDS ORDERED: LEVOTHYROXINE 0.075 MG TAB ONE (05:59)
[2022-09-05] MEDS: LEVOTHYROXINE 0.075 MG, LEVOTHYROXINE 0.1 MG PO SCH ×2 (06:04)
[2022-09-05] MEDS: LACTULOSE 20 GM/30 ML UDC PO SCH (09:02)
[2022-09-05] MEDS: PANTOPRAZOLE 40 MG INJ VIAL IVP SCH ×2 (09:03→20:42)
[2022-09-05] MEDS: FERROUS SULFATE 325 MG TABEC PO SCH ×2 (09:03→20:42)
[2022-09-05] MEDS: ASPIRIN 81 MG TAB.CHEW PO SCH (09:04)
[2022-09-05] MEDS: buPROPion 75 MG TAB PO SCH ×3 (09:04→17:50)
[2022-09-05] MEDS: SERTRALINE 50 MG TAB PO SCH (09:05)
[2022-09-05] MEDS: MORPHINE SULFATE 2 MG/ML SYR IVP PRN (09:08)
[2022-09-05] MEDS ORDERED: HYDROXYZINE HYDROCHLORIDE 25 MG TAB PO PRN (12:10)
[2022-09-05] MEDS: MUPIROCIN CA NASAL 2% 1GM TUBE NS SCH (13:10)
[2022-09-05] MEDS: CHLORHEXADINE GLUC 2% CLOTH TP SCH (13:11)
[2022-09-06] VITALS (13 sets, daily range): BP systolic 122–156; BP diastolic 64–83; PULSE 72–83; RESP 17–20; TEMP 97.5–98.3; O2SAT 95–98
[2022-09-06] MEDS: NACL 0.9% 1,000 ML IV SCH ×3 (00:32→14:43)
[2022-09-06] MEDS: NYSTATIN POW 100 MU/GM 15 GM BTL TP SCH ×2 (01:10→14:41)
[2022-09-06] MEDS: Z-GUARD PASTE TP SCH ×2 (01:10→13:00)
[2022-09-06] MEDS: ONDANSETRON 4 MG/2 ML VIAL IVP PRN ×2 (02:00→22:42)
[2022-09-06] MEDS: MORPHINE SULFATE 2 MG/ML SYR IVP PRN ×2 (02:09→18:35)
[2022-09-06 05:05] LABS: ANION GAP 11.2 (8-16); CALCIUM 7.6 mg/dL (8.5-10.1); CARBON DIOXIDE 29.6 mmol/L (21-32); CHLORIDE 104 mmol/L (98-107); CREATININE 1.1 mg/dL (0.6-1.3); GLUCOSE 87 mg/dL (74-106); POTASSIUM 3.8 mmol/L (3.5-5.1); SODIUM SERUM 141 mmol/L (136-145); UREA NITROGEN, BLOOD 12 mg/dL (7-18)
[2022-09-06 05:06] LABS: BASOPHILS % (AUTO) 0.3 % (0.0-2.0); EOSINOPHILS # (AUTO) 0.3 K/uL (0-0.4); EOSINOPHILS % (AUTO) 3.5 % (0.0-4.0); HEMATOCRIT 31.5 % (36-48); HEMOGLOBIN 10.6 g/dL (12.0-16.0); LYMPHOCYTES # (AUTO) 0.6 K/uL (2.5-16.5); LYMPHOCYTES % (AUTO) 7.8 % (20.5-51.1); MEAN CORPUSCULAR HEMOGLOBIN 29 pg (27-31); MEAN CORPUSCULAR HGB CONC 34 g/dL (33-37); MEAN CORPUSCULAR VOLUME 87.4 fL (80-94); MONOCYTES # (AUTO) 0.5 K/uL (0.8-1.0); MONOCYTES % (AUTO) 6.1 % (1.7-9.3); NEUTROPHILS # (AUTO) 6.4 K/uL (1.8-7.7); NEUTROPHILS % (AUTO) 82.3 % (42.2-75.2); PLATELET COUNT (AUTO) 179 K/uL (140-450); RED BLOOD CELL COUNT(AUTO) 3.61 MIL/uL (4.20-5.40); RED CELL DISTRIBUTION WIDTH 15.3 % (11.6-13.7); WHITE BLOOD COUNT (AUTO) 7.8 K/uL (4.8-10.8)
[2022-09-06] MEDS ORDERED: LEVOTHYROXINE 0.075 MG TAB ONE (06:19)
[2022-09-06] MEDS ORDERED: LEVOTHYROXINE 0.1 MG TAB ONE (06:19)
[2022-09-06] MEDS: LEVOTHYROXINE 0.075 MG, LEVOTHYROXINE 0.1 MG PO SCH ×2 (06:48)
[2022-09-06] MEDS: SERTRALINE 50 MG TAB PO SCH (09:02)
[2022-09-06] MEDS: ASPIRIN 81 MG TAB.CHEW PO SCH (09:02)
[2022-09-06] MEDS: buPROPion 75 MG TAB PO SCH ×3 (09:02→18:32)
[2022-09-06] MEDS: FERROUS SULFATE 325 MG TABEC PO SCH ×2 (09:02→20:46)
[2022-09-06] MEDS: LACTULOSE 20 GM/30 ML UDC PO SCH (09:11)
[2022-09-06] MEDS: PANTOPRAZOLE 40 MG INJ VIAL IVP SCH ×2 (11:07→20:41)
[2022-09-06] MEDS: LORazepam 2 MG/ML VIAL IVP PRN ×2 (11:45→23:48)
[2022-09-06] MEDS: CHLORHEXADINE GLUC 2% CLOTH TP SCH (13:00)
[2022-09-06] MEDS: MUPIROCIN CA NASAL 2% 1GM TUBE NS SCH (14:37)
[2022-09-06] MEDS: ZOLPIDEM 10 MG TAB PO PRN (20:47)
[2022-09-07] VITALS (8 sets, daily range): BP systolic 133–148; BP diastolic 72–87; PULSE 76–88; RESP 18–19; TEMP 96.8–98; O2SAT 94–99
[2022-09-07] MEDS: NACL 0.9% 1,000 ML IV SCH ×2 (00:29→12:56)
[2022-09-07] MEDS: NYSTATIN POW 100 MU/GM 15 GM BTL TP SCH ×2 (04:52→12:49)
[2022-09-07] MEDS: Z-GUARD PASTE TP SCH ×2 (04:53→12:46)
[2022-09-07] MEDS ORDERED: LEVOTHYROXINE 0.1 MG TAB ONE (06:40)
[2022-09-07] MEDS ORDERED: LEVOTHYROXINE 0.075 MG TAB ONE (06:40)
[2022-09-07] MEDS: LEVOTHYROXINE 0.075 MG, LEVOTHYROXINE 0.1 MG PO SCH ×2 (06:50)
[2022-09-07] MEDS: ONDANSETRON 4 MG/2 ML VIAL IVP PRN ×2 (06:52→12:51)
[2022-09-07] MEDS ORDERED: LORazepam 2 MG/ML VIAL IVP PRN (07:45)
[2022-09-07] MEDS: LORazepam 2 MG/ML VIAL IVP PRN (08:53)
[2022-09-07] MEDS: PANTOPRAZOLE 40 MG INJ VIAL IVP SCH (08:53)
[2022-09-07] MEDS ORDERED: TPN PER PHARMACY MC PRN (09:25)
[2022-09-07] MEDS: ASPIRIN 81 MG TAB.CHEW PO SCH (09:48)
[2022-09-07] MEDS: buPROPion 75 MG TAB PO SCH ×3 (09:49→17:09)
[2022-09-07] MEDS: FERROUS SULFATE 325 MG TABEC PO SCH (09:49)
[2022-09-07] MEDS: LACTULOSE 20 GM/30 ML UDC PO SCH (09:50)
[2022-09-07] MEDS: SERTRALINE 50 MG TAB PO SCH (09:50)
[2022-09-07] MEDS ORDERED: INSULIN LISPRO SLIDING SCALE 100 UNITS/ML VIAL SUBQ PRN (10:10)
[2022-09-07 10:35] LABS: ALANINE AMINOTRANSFERASE 21 U/L (12-78); ALBUMIN 2.9 g/dL (3.4-5.0); ALKALINE PHOSPHATASE 91 U/L (50-136); ANION GAP 11.8 (8-16); ASPARTATE AMINOTRANSFERASE 19 U/L (15-37); CALCIUM 7.7 mg/dL (8.5-10.1); CARBON DIOXIDE 29.9 mmol/L (21-32); CHLORIDE 103 mmol/L (98-107); CREATININE 1.1 mg/dL (0.6-1.3); GLUCOSE 86 mg/dL (74-106); MAGNESIUM 1.2 mg/dL (1.8-2.4); POTASSIUM 3.7 mmol/L (3.5-5.1); SODIUM SERUM 141 mmol/L (136-145); TOTAL BILIRUBIN 0.2 mg/dL (0.0-1.0); TOTAL PROTEIN, SERUM 6.3 g/dL (6.4-8.2); TRIGLYCERIDES 100 mg/dL (30-150); UREA NITROGEN, BLOOD 8 mg/dL (7-18)
[2022-09-07] MEDS: BLOOD GLUCOSE MONITORING 1 DEV DEV MC SCH ×2 (12:44→17:11)
[2022-09-07] MEDS: CHLORHEXADINE GLUC 2% CLOTH TP SCH (12:52)
[2022-09-07] MEDS: MAG SULF 2000 MG/WATER PREMIX 50 ML IV PRN (12:55)
[2022-09-07] MEDS: MUPIROCIN CA NASAL 2% 1GM TUBE NS SCH (12:55)
[2022-09-07] MEDS: MORPHINE SULFATE 2 MG/ML SYR IVP PRN ×2 (16:01→20:41)
[2022-09-07] MEDS ORDERED: MULTIVITAMIN IV SCH ×4 (20:00)
[2022-09-07] MEDS ORDERED: DEXTROSE IV SCH ×4 (20:00)
[2022-09-07] MEDS ORDERED: AMINO ACIDS IV SCH ×4 (20:00)
[2022-09-07] MEDS ORDERED: [UNRECOGNIZED DRUG - OTHER] IV SCH ×4 (20:00)
[2022-09-07] MEDS ORDERED: DEXTROSE 50% 50 ML SYR IVP PRN (21:05)
== END 2022-09-07 22:25 | disposition short-term general hospital (02) | DRG 871 ==
LOC: MED 18:39 → MMU 09-01 02:39 → MTU 09-01 02:52
PROVIDERS: ADMIT Family Medicine; ATTEND Family Medicine
PROC: 0D9670Z Drainage of Stomach with Drainage Device, Via Natural or Artificial Opening (ICD-10-PCS; principal; 2022-09-01)
PROC: 05HY33Z Insertion of Infusion Device into Upper Vein, Percutaneous Approach (ICD-10-PCS; 2022-09-01)
PROC: B54NZZA Ultrasonography of Left Upper Extremity Veins, Guidance (ICD-10-PCS; 2022-09-01)
DX: A41.9 Sepsis, unspecified organism (principal); N17.0 Acute kidney failure with tubular necrosis; U07.1 COVID-19; N39.0 Urinary tract infection, site not specified; K92.0 Hematemesis; Z68.43 Body mass index [BMI] 50.0-59.9, adult; C18.9 Malignant neoplasm of colon, unspecified; K56.600 Partial intestinal obstruction, unspecified as to cause; E03.9 Hypothyroidism, unspecified; E66.01 Morbid (severe) obesity due to excess calories; I12.9 Hypertensive chronic kidney disease with stage 1 through stage 4 chronic kidney disease, or unspecified chronic kidney disease; N18.9 Chronic kidney disease, unspecified; Z85.038 Personal history of other malignant neoplasm of large intestine; Z79.899 Other long term (current) drug therapy; Z83.3 Family history of diabetes mellitus
CPT/HCPCS: 36415; 71045; 76770; 80048; 80053; 81001; 82948; 83036; 83690; 83735; 83880; 84100; 84156; 84300; 84478; 84484; 85025; 85610; 86886; 86900; 86901; 87081; 87086; 87635-QW; 93005; 96361; 96365; 96375; 96376; 99291; A9153; C9113; J0696; J1815; J2060; J2270; J2405; J2765; J3475; J7060; Q0092; Q9967

== ENCOUNTER 2022-11-16 19:38 | Emergency (ER) | payer OTHER, MEDICAID ==
[~2022-11-16] VITALS: Ht 167.6 cm; Wt 137.0 kg
[2022-11-16 19:57] VITALS: BP 120/77; PULSE 121; RESP 20; TEMP 96.7; O2SAT 93
[2022-11-16] MEDS ORDERED: ONDANSETRON 4 MG/2 ML VIAL IVP ONE (20:05)
[2022-11-16] MEDS ORDERED: MORPHINE SULFATE 4 MG/ML SYR IVP ONE ×2 (20:05→23:40)
[2022-11-16] MEDS ORDERED: NACL 0.9% 1,000 ML IV SCH (20:05)
[2022-11-16 20:26] LABS: BASOPHILS # (AUTO) 0.1 K/uL (0.00-0.22); BASOPHILS % (AUTO) 0.3 % (0.0-2.0); EOSINOPHILS # (AUTO) 0.1 K/uL (0-0.4); EOSINOPHILS % (AUTO) 0.4 % (0.0-4.0); HEMATOCRIT 42.9 % (36-48); HEMOGLOBIN 14.2 g/dL (12.0-16.0); LYMPHOCYTES # (AUTO) 0.8 K/uL (2.5-16.5); LYMPHOCYTES % (AUTO) 4.8 % (20.5-51.1); MEAN CORPUSCULAR HEMOGLOBIN 30 pg (27-31); MEAN CORPUSCULAR HGB CONC 33 g/dL (33-37); MEAN CORPUSCULAR VOLUME 88.9 fL (80-94); MONOCYTES # (AUTO) 0.7 K/uL (0.8-1.0); NEUTROPHILS % (AUTO) 90.5 % (42.2-75.2); PLATELET COUNT (AUTO) 336 K/uL (140-450); RED BLOOD CELL COUNT(AUTO) 4.82 MIL/uL (4.20-5.40); RED CELL DISTRIBUTION WIDTH 14.9 % (11.6-13.7)
[2022-11-16 20:37] LABS: WHITE BLOOD COUNT (AUTO) 17.7 K/uL (4.8-10.8)
[2022-11-16 20:44] LABS: INR 0.93 (0.8-1.2); PARTIAL THROMBOPLASTIN TIME 22.7 secs (22-35.6); PROTHROMBIN TIME 9.8 secs (10.8-13.4)
[2022-11-16 20:47] LABS: ALANINE AMINOTRANSFERASE 18 U/L (12-78); ALBUMIN 3.9 g/dL (3.4-5.0); ALKALINE PHOSPHATASE 121 U/L (50-136); ANION GAP 14.6 (8-16); ASPARTATE AMINOTRANSFERASE 22 U/L (15-37); CALCIUM 11.1 mg/dL (8.5-10.1); CARBON DIOXIDE 29.6 mmol/L (21-32); CHLORIDE 97 mmol/L (98-107); CREATININE 1.3 mg/dL (0.6-1.3); GLUCOSE 200 mg/dL (74-106); POTASSIUM 4.2 mmol/L (3.5-5.1); SODIUM SERUM 137 mmol/L (136-145); TOTAL BILIRUBIN 0.4 mg/dL (0.0-1.0); TOTAL PROTEIN, SERUM 8.6 g/dL (6.4-8.2); UREA NITROGEN, BLOOD 18 mg/dL (7-18)
[2022-11-16 20:50] LABS: CREATINE KINASE, TOTAL 48 U/L (26-192); LACTIC ACID 1.6 mmol/L (0.4-2.0); LIPASE 31 U/L (16-77)
[2022-11-16 22:00] LABS: APPEARANCE,URINE CLEAR (CLEAR); BILIRUBIN,URINE 1+ (NEGATIVE); BLOOD, URINE NEGATIVE (NEGATIVE); COLOR,URINE YELLOW (YELLOW); LEUKOCYTE ESTERASE ,URINE NEGATIVE (NEGATIVE); NITRITE, URINE NEGATIVE (NEGATIVE); PH,URINE 5.5 (5.0-9.0); PROTEIN,URINE TRACE (NEGATIVE); UGLUCOSE NEGATIVE (NEGATIVE); UROBILINOGEN,URINE 0.2 EU/dL (0.2 - 1)
[2022-11-16 22:03] LABS: ICTOTEST NEGATIVE (NEGATIVE)
[2022-11-16] MEDS ORDERED: PIPERACILLIN/TAZOBACTAM 3.375 GM in DEXTROSE 5% 50 ML IV ONE (22:45)
[2022-11-16] MEDS ORDERED: PIPERACILLIN/TAZOBACTAM 3.375 GM VIAL IV ONE (22:51)
[2022-11-16] MEDS ORDERED: NACL 0.9% 1,000 ML IV ONE (23:30)
[2022-11-16] MEDS ORDERED: METOCLOPRAMIDE 10 MG/2 ML INJ VIAL IVP ONE (23:40)
[2022-11-17] MEDS ORDERED: PANTOPRAZOLE 40 MG INJ VIAL IVP ONE (03:30)
[2022-11-17] MEDS ORDERED: NACL 0.9% 1,000 ML IV ONE ×4 (03:30→11:50)
[2022-11-17] MEDS ORDERED: WATER STERILE 10 ML MC ONE (03:45)
[2022-11-17] MEDS ORDERED: MORPHINE SULFATE 4 MG/ML SYR IVP ONE (06:40)
[2022-11-17] MEDS ORDERED: HYDROmorphone PFS 2 MG/ML SYR IVP ONE (08:50)
[2022-11-17] MEDS ORDERED: ACETAMINOPHEN 100 ML IV ONE (09:00)
[2022-11-17 11:00] LABS: LACTIC ACID 1.2 mmol/L (0.4-2.0)
[2022-11-17 15:22] VITALS: BP 123/60; PULSE 111; RESP 22; TEMP 37.66968; O2SAT 97
== END 2022-11-17 15:40 | disposition short-term general hospital (02) ==
LOC: MED 19:38
DX: K56.699 Other intestinal obstruction unspecified as to partial versus complete obstruction (principal); R11.2 Nausea with vomiting, unspecified; E83.52 Hypercalcemia; E11.9 Type 2 diabetes mellitus without complications; I10 Essential (primary) hypertension; Z85.038 Personal history of other malignant neoplasm of large intestine; Z92.21 Personal history of antineoplastic chemotherapy; Z79.899 Other long term (current) drug therapy; Z90.49 Acquired absence of other specified parts of digestive tract; Z98.84 Bariatric surgery status; Z98.890 Other specified postprocedural states
CPT/HCPCS: 36415; 71045; 74176; 80053; 81003; 82550; 82553; 83605; 83690; 83880; 84484; 85025; 85610; 85730; 87040; 87086; 93005; 96361; 96365; 96367; 96375; 96376; 99291; C9113; J1170; J2270; J2405; J2543; J2765; J7030; Q0092; 99285

== ENCOUNTER 2023-01-04 20:35 | Inpatient (IN) | payer OTHER, MEDICAID ==
[~2023-01-04] VITALS: Ht 167.6 cm; Wt 131.1 kg
[2023-01-04 21:14] VITALS: BP 94/66; PULSE 102; RESP 19; TEMP 98.1; O2SAT 95
[2023-01-04] MEDS ORDERED: ONDANSETRON 4 MG ODT PO ONE (21:35)
[2023-01-04 21:51] LABS: BASOPHILS % (AUTO) 0.4 % (0.0-2.0); EOSINOPHILS # (AUTO) 0.1 K/uL (0-0.4); EOSINOPHILS % (AUTO) 0.5 % (0.0-4.0); HEMATOCRIT 40.5 % (36-48); HEMOGLOBIN 13.2 g/dL (12.0-16.0); LYMPHOCYTES # (AUTO) 0.6 K/uL (2.5-16.5); LYMPHOCYTES % (AUTO) 5.2 % (20.5-51.1); MEAN CORPUSCULAR HEMOGLOBIN 29 pg (27-31); MEAN CORPUSCULAR HGB CONC 33 g/dL (33-37); MEAN CORPUSCULAR VOLUME 87.6 fL (80-94); MONOCYTES % (AUTO) 8.7 % (1.7-9.3); NEUTROPHILS # (AUTO) 9.7 K/uL (1.8-7.7); NEUTROPHILS % (AUTO) 85.2 % (42.2-75.2); PLATELET COUNT (AUTO) 327 K/uL (140-450); RED BLOOD CELL COUNT(AUTO) 4.63 MIL/uL (4.20-5.40); RED CELL DISTRIBUTION WIDTH 14.9 % (11.6-13.7); WHITE BLOOD COUNT (AUTO) 11.4 K/uL (4.8-10.8)
[2023-01-04 22:08] LABS: ALANINE AMINOTRANSFERASE 23 U/L (12-78); ALBUMIN 2.9 g/dL (3.4-5.0); ALKALINE PHOSPHATASE 127 U/L (50-136); ANION GAP 15.3 (8-16); ASPARTATE AMINOTRANSFERASE 21 U/L (15-37); CALCIUM 8.4 mg/dL (8.5-10.1); CARBON DIOXIDE 29.7 mmol/L (21-32); CHLORIDE 97 mmol/L (98-107); CREATININE 1.9 mg/dL (0.6-1.3); GLUCOSE 129 mg/dL (74-106); LIPASE 55 U/L (16-77); SODIUM SERUM 138 mmol/L (136-145); TOTAL BILIRUBIN 0.6 mg/dL (0.0-1.0); TOTAL PROTEIN, SERUM 7.2 g/dL (6.4-8.2); UREA NITROGEN, BLOOD 27 mg/dL (7-18)
[2023-01-04] MEDS ORDERED: NACL 0.9% 1,000 ML IV ONE (23:05)
[2023-01-04 23:33] LABS: LACTIC ACID 0.8 mmol/L (0.4-2.0)
[2023-01-05 01:34] LABS: APPEARANCE,URINE HAZY (CLEAR); BILIRUBIN,URINE 2+ (NEGATIVE); BLOOD, URINE NEGATIVE (NEGATIVE); COLOR,URINE YELLOW (YELLOW); LEUKOCYTE ESTERASE ,URINE TRACE (NEGATIVE); NITRITE, URINE NEGATIVE (NEGATIVE); PH,URINE 5.5 (5.0-9.0); PROTEIN,URINE TRACE (NEGATIVE); UGLUCOSE NEGATIVE (NEGATIVE)
[2023-01-05 01:45] LABS: ICTOTEST NEGATIVE (NEGATIVE)
[2023-01-05 01:47] LABS: BACTERIA,URINE 1+ /HPF (None Seen); RBC,URINE 0-5 /HPF (0-5)
[2023-01-05 01:48] LABS: WBC,URINE 16-25 (MOD) /HPF (0-5)
[2023-01-05] MEDS ORDERED: cefTRIAXone 2,000 MG in DEXTROSE 5% 100 ML IV ONE (03:10)
[2023-01-05] MEDS ORDERED: cefTRIAXone 2,000 MG VIAL ONE (03:17)
[2023-01-05] MEDS ORDERED: CLON0.5T PO (05:35)
[2023-01-05] MEDS ORDERED: DOCU-299 PO (05:36)
[2023-01-05] MEDS ORDERED: [UNRECOGNIZED DRUG - CODE] IJ (05:38)
[2023-01-05] MEDS ORDERED: ENOX40SY SC (05:38)
[2023-01-05] MEDS ORDERED: DEXT 5% / NACL 0.45% 1,000 ML IV SCH (05:45)
[2023-01-05] MEDS ORDERED: MIDODRINE 5 MG TAB PO PRN (11:45)
[2023-01-05] MEDS ORDERED: MELATONIN 3 MG TAB PO PRN (11:45)
[2023-01-05] MEDS ORDERED: ALPRAZolam 0.5 MG TAB PO PRN (11:45)
[2023-01-05] MEDS ORDERED: TAZOBACTAM IV SCH (13:00)
[2023-01-05] MEDS ORDERED: [UNRECOGNIZED DRUG - OTHER] IV SCH (13:00)
[2023-01-05] MEDS ORDERED: PIPERACILLIN IV SCH (13:00)
[2023-01-05] MEDS ORDERED: BUPROPION HCL 75 MG PO SCH (13:00)
[2023-01-05] MEDS ORDERED: DEXTROSE IV SCH (13:00)
[2023-01-05] MEDS ORDERED: buPROPion 75 MG TAB PO SCH (13:15)
[2023-01-05] MEDS: PIPERACILLIN/TAZOBACTAM 2.25 GM in DEXTROSE 5% 50 ML IV SCH ×2 (13:58→20:39)
[2023-01-05 15:36] VITALS: PULSE 65; RESP 20
[2023-01-05 16:00] VITALS: BP 125/78; PULSE 68; RESP 20; TEMP 97.7; O2SAT 99
[2023-01-05] MEDS: buPROPion 75 MG TAB PO SCH (17:56)
[2023-01-05] MEDS: NACL 0.9% 1,000 ML IV SCH ×2 (17:56→23:50)
[2023-01-05 20:00] VITALS: BP 121/70; PULSE 84; RESP 18; TEMP 97.1; O2SAT 98
[2023-01-05] MEDS: DOCUSATE SODIUM 100 MG GELCAP PO SCH (20:39)
[2023-01-05] MEDS: FERROUS SULFATE 325 MG TABEC PO SCH (20:39)
[2023-01-05] MEDS: SENNA 8.6 MG TAB PO SCH (20:40)
[2023-01-05] MEDS ORDERED: metFORMIN 500 MG TAB PO SCH (21:00)
[2023-01-05] MEDS: clonazePAM 0.5 MG TAB PO SCH (21:10)
[2023-01-05] MEDS: MORPHINE TAB ER 15 MG TABER PO SCH (21:12)
[2023-01-05] MEDS: TRIAMCINOLONE 0.025% CRM 15 GM TUBE TP SCH (21:38)
[2023-01-06 04:00] VITALS: BP 120/69; PULSE 88; RESP 18; TEMP 97.4; O2SAT 99
[2023-01-06] MEDS: PIPERACILLIN/TAZOBACTAM 2.25 GM in DEXTROSE 5% 50 ML IV SCH ×3 (04:23→21:29)
[2023-01-06] MEDS ORDERED: LEVOTHYROXINE 0.1 MG TAB ONE (05:37)
[2023-01-06] MEDS ORDERED: LEVOTHYROXINE 0.075 MG TAB ONE (05:37)
[2023-01-06] MEDS: LEVOTHYROXINE 0.1 MG, LEVOTHYROXINE 0.075 MG PO SCH ×2 (05:38)
[2023-01-06] MEDS: NACL 0.9% 1,000 ML IV SCH ×2 (05:42→21:29)
[2023-01-06 07:20] LABS: ANION GAP 11.3 (8-16); CALCIUM 7.7 mg/dL (8.5-10.1); CARBON DIOXIDE 32.4 mmol/L (21-32); CHLORIDE 102 mmol/L (98-107); CREATININE 1.3 mg/dL (0.6-1.3); GLUCOSE 97 mg/dL (74-106); MAGNESIUM 1.7 mg/dL (1.8-2.4); POTASSIUM 3.7 mmol/L (3.5-5.1); SODIUM SERUM 142 mmol/L (136-145); UREA NITROGEN, BLOOD 22 mg/dL (7-18)
[2023-01-06 07:38] LABS: BASOPHILS % (AUTO) 0.7 % (0.0-2.0); EOSINOPHILS # (AUTO) 0.3 K/uL (0-0.4); EOSINOPHILS % (AUTO) 4.7 % (0.0-4.0); HEMATOCRIT 33.3 % (36-48); HEMOGLOBIN 11.2 g/dL (12.0-16.0); LYMPHOCYTES # (AUTO) 0.8 K/uL (2.5-16.5); LYMPHOCYTES % (AUTO) 13.7 % (20.5-51.1); MEAN CORPUSCULAR HEMOGLOBIN 30 pg (27-31); MEAN CORPUSCULAR HGB CONC 34 g/dL (33-37); MEAN CORPUSCULAR VOLUME 87.4 fL (80-94); MONOCYTES # (AUTO) 0.6 K/uL (0.8-1.0); MONOCYTES % (AUTO) 10.6 % (1.7-9.3); NEUTROPHILS % (AUTO) 70.3 % (42.2-75.2); PLATELET COUNT (AUTO) 227 K/uL (140-450); RED BLOOD CELL COUNT(AUTO) 3.81 MIL/uL (4.20-5.40); RED CELL DISTRIBUTION WIDTH 14.8 % (11.6-13.7); WHITE BLOOD COUNT (AUTO) 5.7 K/uL (4.8-10.8)
[2023-01-06 08:00] VITALS: BP 105/55; PULSE 65; PULSE 78; RESP 18; RESP 20; TEMP 96; O2SAT 97
[2023-01-06] MEDS ORDERED: lisinopriL 20 MG TAB PO SCH (09:00)
[2023-01-06] MEDS ORDERED: hydroCHLOROthiazide 25 MG TAB PO SCH (09:00)
[2023-01-06] MEDS ORDERED: NON-FORMULARY ITEM (Lisinopril/Hydrochlorothiazide (Lisinopril-Hctz 20-12.5 mg Tab) 1 TAB) PO SCH (09:00)
[2023-01-06] MEDS ORDERED: NON-FORMULARY ITEM (Levothyroxine Sodium* (Synthroid*) 0.175 MG) PO SCH (09:00)
[2023-01-06] MEDS: ASPIRIN 81 MG TAB.CHEW PO SCH (09:04)
[2023-01-06] MEDS: LACTULOSE 20 GM/30 ML UDC PO SCH (09:05)
[2023-01-06] MEDS: FERROUS SULFATE 325 MG TABEC PO SCH ×2 (09:06→21:30)
[2023-01-06] MEDS: clonazePAM 0.5 MG TAB PO SCH ×2 (09:08→21:34)
[2023-01-06] MEDS: MORPHINE TAB ER 15 MG TABER PO SCH ×2 (09:08→21:38)
[2023-01-06] MEDS: buPROPion 75 MG TAB PO SCH ×3 (09:09→21:25)
[2023-01-06] MEDS: SERTRALINE 50 MG TAB PO SCH (09:09)
[2023-01-06] MEDS: ENOXAPARIN 40 MG/0.4 ML SYR SUBQ SCH (09:10)
[2023-01-06] MEDS: DOCUSATE SODIUM 100 MG GELCAP PO SCH ×2 (09:13→21:30)
[2023-01-06] MEDS: PSYLLIUM 12.2 GM/PKT PO SCH (09:14)
[2023-01-06] MEDS: TRIAMCINOLONE 0.025% CRM 15 GM TUBE TP SCH ×2 (09:30→21:37)
[2023-01-06] MEDS ORDERED: MAG SULF 2000 MG/WATER PREMIX 50 ML IV SCH (10:30)
[2023-01-06 16:00] VITALS: BP 125/58; PULSE 79; RESP 18; TEMP 97.9; O2SAT 96
[2023-01-06 20:00] VITALS: BP 124/70; PULSE 80; RESP 18; TEMP 97.8; O2SAT 96
[2023-01-06] MEDS: SENNA 8.6 MG TAB PO SCH (21:36)
[2023-01-07 04:00] VITALS: BP 114/50; PULSE 77; RESP 18; TEMP 97; O2SAT 96
[2023-01-07] MEDS: PIPERACILLIN/TAZOBACTAM 2.25 GM in DEXTROSE 5% 50 ML IV SCH ×3 (05:53→20:45)
[2023-01-07] MEDS ORDERED: LEVOTHYROXINE 0.075 MG TAB ONE (06:02)
[2023-01-07] MEDS ORDERED: LEVOTHYROXINE 0.1 MG TAB ONE (06:02)
[2023-01-07] MEDS: LEVOTHYROXINE 0.1 MG, LEVOTHYROXINE 0.075 MG PO SCH ×2 (06:05)
[2023-01-07 07:02] LABS: BASOPHILS % (AUTO) 0.9 % (0.0-2.0); EOSINOPHILS # (AUTO) 0.3 K/uL (0-0.4); EOSINOPHILS % (AUTO) 6.4 % (0.0-4.0); HEMATOCRIT 32.7 % (36-48); HEMOGLOBIN 10.7 g/dL (12.0-16.0); LYMPHOCYTES # (AUTO) 0.7 K/uL (2.5-16.5); MEAN CORPUSCULAR HEMOGLOBIN 29 pg (27-31); MEAN CORPUSCULAR HGB CONC 33 g/dL (33-37); MEAN CORPUSCULAR VOLUME 88.7 fL (80-94); MONOCYTES # (AUTO) 0.5 K/uL (0.8-1.0); MONOCYTES % (AUTO) 9.9 % (1.7-9.3); NEUTROPHILS # (AUTO) 3.7 K/uL (1.8-7.7); NEUTROPHILS % (AUTO) 68.8 % (42.2-75.2); PLATELET COUNT (AUTO) 201 K/uL (140-450); RED BLOOD CELL COUNT(AUTO) 3.69 MIL/uL (4.20-5.40); RED CELL DISTRIBUTION WIDTH 14.8 % (11.6-13.7); WHITE BLOOD COUNT (AUTO) 5.4 K/uL (4.8-10.8)
[2023-01-07 08:00] VITALS: BP 115/59; PULSE 75; RESP 18; TEMP 98.1; O2SAT 96
[2023-01-07] MEDS: SERTRALINE 50 MG TAB PO SCH (08:53)
[2023-01-07] MEDS: buPROPion 75 MG TAB PO SCH ×3 (08:53→16:16)
[2023-01-07] MEDS: ASPIRIN 81 MG TAB.CHEW PO SCH (08:53)
[2023-01-07] MEDS: DOCUSATE SODIUM 100 MG GELCAP PO SCH ×2 (08:53→20:46)
[2023-01-07] MEDS: clonazePAM 0.5 MG TAB PO SCH ×2 (08:54→21:08)
[2023-01-07] MEDS: ENOXAPARIN 40 MG/0.4 ML SYR SUBQ SCH (08:55)
[2023-01-07] MEDS: TRIAMCINOLONE 0.025% CRM 15 GM TUBE TP SCH ×2 (08:56→20:53)
[2023-01-07] MEDS: FERROUS SULFATE 325 MG TABEC PO SCH ×2 (08:56→20:47)
[2023-01-07] MEDS: MORPHINE TAB ER 15 MG TABER PO SCH ×2 (08:57→20:50)
[2023-01-07] MEDS: LACTULOSE 20 GM/30 ML UDC PO SCH (08:57)
[2023-01-07] MEDS: NACL 0.9% 1,000 ML IV SCH (08:58)
[2023-01-07] MEDS: PSYLLIUM 12.2 GM/PKT PO SCH (08:58)
[2023-01-07 09:09] LABS: ALANINE AMINOTRANSFERASE 16 U/L (12-78); ALKALINE PHOSPHATASE 91 U/L (50-136); ASPARTATE AMINOTRANSFERASE 13 U/L (15-37); TOTAL BILIRUBIN 0.2 mg/dL (0.0-1.0); TOTAL PROTEIN, SERUM 5.7 g/dL (6.4-8.2)
[2023-01-07 09:24] LABS: ALBUMIN 2.3 g/dL (3.4-5.0); ANION GAP 12.5 (8-16); CALCIUM 7.5 mg/dL (8.5-10.1); CARBON DIOXIDE 28.3 mmol/L (21-32); CHLORIDE 106 mmol/L (98-107); CREATININE 1.2 mg/dL (0.6-1.3); GLUCOSE 98 mg/dL (74-106); MAGNESIUM 1.8 mg/dL (1.8-2.4); POTASSIUM 3.8 mmol/L (3.5-5.1); SODIUM SERUM 143 mmol/L (136-145); UREA NITROGEN, BLOOD 14 mg/dL (7-18)
[2023-01-07] MEDS ORDERED: BUPR75TA3 PO (13:23)
[2023-01-07 20:00] VITALS: BP 116/61; PULSE 78; RESP 18; TEMP 96.9; TEMP 98.1; O2SAT 94
[2023-01-07] MEDS: SENNA 8.6 MG TAB PO SCH (20:51)
[2023-01-08 04:00] VITALS: BP 136/63; PULSE 74; RESP 18; TEMP 96.8; O2SAT 97
[2023-01-08] MEDS ORDERED: LEVOTHYROXINE 0.075 MG TAB ONE (05:46)
[2023-01-08] MEDS ORDERED: LEVOTHYROXINE 0.1 MG TAB ONE (05:46)
[2023-01-08] MEDS: PIPERACILLIN/TAZOBACTAM 2.25 GM in DEXTROSE 5% 50 ML IV SCH ×2 (05:54→12:06)
[2023-01-08] MEDS: LEVOTHYROXINE 0.1 MG, LEVOTHYROXINE 0.075 MG PO SCH ×2 (06:00)
[2023-01-08 08:00] VITALS: BP 126/75; PULSE 80; RESP 18; TEMP 97.5; O2SAT 96
[2023-01-08] MEDS: DOCUSATE SODIUM 100 MG GELCAP PO SCH (08:36)
[2023-01-08] MEDS: buPROPion 75 MG TAB PO SCH ×2 (08:36→12:22)
[2023-01-08] MEDS: SERTRALINE 50 MG TAB PO SCH (08:36)
[2023-01-08] MEDS: FERROUS SULFATE 325 MG TABEC PO SCH (08:37)
[2023-01-08] MEDS: MORPHINE TAB ER 15 MG TABER PO SCH (08:37)
[2023-01-08] MEDS: PSYLLIUM 12.2 GM/PKT PO SCH (08:38)
[2023-01-08] MEDS: LACTULOSE 20 GM/30 ML UDC PO SCH (08:38)
[2023-01-08] MEDS: ENOXAPARIN 40 MG/0.4 ML SYR SUBQ SCH (08:39)
[2023-01-08] MEDS: TRIAMCINOLONE 0.025% CRM 15 GM TUBE TP SCH (08:44)
[2023-01-08] MEDS: ASPIRIN 81 MG TAB.CHEW PO SCH (08:44)
[2023-01-08] MEDS: clonazePAM 0.5 MG TAB PO SCH (08:45)
[2023-01-08] MEDS ORDERED: CHLORHEXADINE GLUC 2% CLOTH TP SCH (09:00)
[2023-01-08] MEDS ORDERED: MUPIROCIN CA NASAL 2% 1GM TUBE NS SCH (09:00)
[2023-01-08 12:03] VITALS: PULSE 80; RESP 18; O2SAT 96
== END 2023-01-08 15:42 | disposition home or self-care (01) | DRG 871 ==
LOC: MED 20:35 → MTU 01-05 05:48
PROVIDERS: ADMIT Preventive Medicine Preventive Medicine/Occupational Environmental Medicine; ATTEND Preventive Medicine Preventive Medicine/Occupational Environmental Medicine
DX: A41.9 Sepsis, unspecified organism (principal); E43 Unspecified severe protein-calorie malnutrition; N17.0 Acute kidney failure with tubular necrosis; C78.7 Secondary malignant neoplasm of liver and intrahepatic bile duct; C18.9 Malignant neoplasm of colon, unspecified; N12 Tubulo-interstitial nephritis, not specified as acute or chronic; Z68.42 Body mass index [BMI] 45.0-49.9, adult; E83.52 Hypercalcemia; Z96.651 Presence of right artificial knee joint; G47.00 Insomnia, unspecified; E83.51 Hypocalcemia; E83.42 Hypomagnesemia; G62.0 Drug-induced polyneuropathy; K59.00 Constipation, unspecified; E89.0 Postprocedural hypothyroidism; E66.01 Morbid (severe) obesity due to excess calories; E11.65 Type 2 diabetes mellitus with hyperglycemia; D64.9 Anemia, unspecified; I12.9 Hypertensive chronic kidney disease with stage 1 through stage 4 chronic kidney disease, or unspecified chronic kidney disease; F32.A Depression, unspecified; E11.22 Type 2 diabetes mellitus with diabetic chronic kidney disease; N18.9 Chronic kidney disease, unspecified; G89.4 Chronic pain syndrome; I25.10 Atherosclerotic heart disease of native coronary artery without angina pectoris; Z98.84 Bariatric surgery status; Z85.850 Personal history of malignant neoplasm of thyroid; Z85.038 Personal history of other malignant neoplasm of large intestine; Z82.49 Family history of ischemic heart disease and other diseases of the circulatory system; Z80.0 Family history of malignant neoplasm of digestive organs; Z63.4 Disappearance and death of family member; Z85.05 Personal history of malignant neoplasm of liver; E55.9 Vitamin D deficiency, unspecified; R11.2 Nausea with vomiting, unspecified
CPT/HCPCS: 36415; 71045; 80048; 80053; 81001; 83605; 83690; 83735; 84100; 84484; 85025; 85651; 86140; 87040; 87081; 87086; 93005; 96361; 96374; 97112; 97116; 97163-GP; 97530; 99285; J0696; J1650; J2543; J3475; J7060; Q0092; Q0162

== ENCOUNTER 2023-01-11 20:26 | Emergency (ER) | payer OTHER, MEDICAID ==
[~2023-01-11] VITALS: Ht 167.6 cm; Wt 136.1 kg
[~2023-01-11 20:26] MED LIST changes: +BUPR75TA3 PO; +CLON0.5T PO; +DOCU-299 PO; +ENOX40SY SC; -MORP15TE33 PO; -PIPE50SO5 IV; -PROM6.2590 PO; -SULF-58 PO; +[UNRECOGNIZED DRUG - CODE] IJ
[2023-01-11 20:31] VITALS: BP 102/70; PULSE 91; RESP 18; TEMP 97.4; O2SAT 94
[2023-01-11] MEDS ORDERED: KETOROLAC 30 MG/ML VIAL IVP ONE (21:15)
[2023-01-11] MEDS ORDERED: ONDANSETRON 4 MG/2 ML VIAL IVP ONE (21:15)
[2023-01-11 21:39] LABS: BASOPHILS % (AUTO) 0.4 % (0.0-2.0); EOSINOPHILS # (AUTO) 0.1 K/uL (0-0.4); EOSINOPHILS % (AUTO) 1.3 % (0.0-4.0); HEMATOCRIT 36.7 % (36-48); LYMPHOCYTES # (AUTO) 0.6 K/uL (2.5-16.5); MEAN CORPUSCULAR HEMOGLOBIN 29 pg (27-31); MEAN CORPUSCULAR HGB CONC 33 g/dL (33-37); MEAN CORPUSCULAR VOLUME 87.6 fL (80-94); MONOCYTES # (AUTO) 0.5 K/uL (0.8-1.0); MONOCYTES % (AUTO) 4.9 % (1.7-9.3); NEUTROPHILS # (AUTO) 9.2 K/uL (1.8-7.7); NEUTROPHILS % (AUTO) 87.4 % (42.2-75.2); PLATELET COUNT (AUTO) 264 K/uL (140-450); RED BLOOD CELL COUNT(AUTO) 4.19 MIL/uL (4.20-5.40); RED CELL DISTRIBUTION WIDTH 15.5 % (11.6-13.7); WHITE BLOOD COUNT (AUTO) 10.5 K/uL (4.8-10.8)
[2023-01-11 21:47] LABS: APPEARANCE,URINE CLEAR (CLEAR); BILIRUBIN,URINE 1+ (NEGATIVE); BLOOD, URINE NEGATIVE (NEGATIVE); COLOR,URINE YELLOW (YELLOW); LEUKOCYTE ESTERASE ,URINE TRACE (NEGATIVE); NITRITE, URINE NEGATIVE (NEGATIVE); PROTEIN,URINE NEGATIVE (NEGATIVE); UGLUCOSE NEGATIVE (NEGATIVE); UROBILINOGEN,URINE 0.2 EU/dL (0.2 - 1)
[2023-01-11 21:50] LABS: BACTERIA,URINE FEW /HPF (None Seen); RBC,URINE 0-5 /HPF (0-5); SQUAMOUS EPITHELIAL CELL,UR 4-10 (MOD) /LPF (0-3 (FEW))
[2023-01-11 21:51] LABS: ICTOTEST NEGATIVE (NEGATIVE)
[2023-01-11 21:57] LABS: ALANINE AMINOTRANSFERASE 19 U/L (12-78); ALBUMIN 2.8 g/dL (3.4-5.0); ALKALINE PHOSPHATASE 99 U/L (50-136); ANION GAP 13.7 (8-16); ASPARTATE AMINOTRANSFERASE 20 U/L (15-37); CALCIUM 8.3 mg/dL (8.5-10.1); CARBON DIOXIDE 32.3 mmol/L (21-32); CHLORIDE 97 mmol/L (98-107); CREATININE 1.2 mg/dL (0.6-1.3); GLUCOSE 104 mg/dL (74-106); LIPASE 29 U/L (16-77); SODIUM SERUM 139 mmol/L (136-145); TOTAL BILIRUBIN 0.4 mg/dL (0.0-1.0); TOTAL PROTEIN, SERUM 6.5 g/dL (6.4-8.2); UREA NITROGEN, BLOOD 12 mg/dL (7-18)
[2023-01-11] MEDS ORDERED: NACL 0.9% 1,000 ML IV ONE (22:20)
[2023-01-11] MEDS ORDERED: MORPHINE SULFATE 4 MG/ML SYR IVP ONE (23:20)
[2023-01-12] MEDS ORDERED: MORPHINE SULFATE 4 MG/ML SYR IVP ONE ×2 (01:25→04:15)
[2023-01-12 02:01] VITALS: O2SAT 94
[2023-01-12 03:58] VITALS: BP 109/67
[2023-01-12 06:15] VITALS: PULSE 76; RESP 15; O2SAT 94
== END 2023-01-12 06:15 | disposition short-term general hospital (02) ==
LOC: MED 20:26
DX: K56.609 Unspecified intestinal obstruction, unspecified as to partial versus complete obstruction (principal); R19.09 Other intra-abdominal and pelvic swelling, mass and lump; Z85.038 Personal history of other malignant neoplasm of large intestine; E11.9 Type 2 diabetes mellitus without complications; I10 Essential (primary) hypertension; E03.9 Hypothyroidism, unspecified; Z98.890 Other specified postprocedural states; Z79.899 Other long term (current) drug therapy; Z79.82 Long term (current) use of aspirin
CPT/HCPCS: 36415; 71045; 74177; 80053; 81001; 83690; 85025; 87086; 96361; 96374; 96375; 96376; 99291; J1885; J2270; J2405; J7030; Q0092; Q9967

== ENCOUNTER 2023-01-23 23:33 | Emergency (ER) | payer OTHER, MEDICAID ==
[~2023-01-23] VITALS: Ht 152.4 cm; Wt 158.8 kg
[2023-01-23 23:33] VITALS: BP 0/0; PULSE 0; RESP 0; TEMP 96.9
[~2023-01-23 23:33] MED LIST changes: +CODE BLUE PARTICIPANT 1 EA MISC MC ONE
== END 2023-01-23 23:43 ==
LOC: MED 23:33
DX: I46.9 Cardiac arrest, cause unspecified (principal); I10 Essential (primary) hypertension; E11.9 Type 2 diabetes mellitus without complications; E03.9 Hypothyroidism, unspecified; Z79.899 Other long term (current) drug therapy; Z79.82 Long term (current) use of aspirin
CPT/HCPCS: 31500; 92950; 99285